=== PATIENT | female | born 1955 | race Caucasian/White ===

== ENCOUNTER 2019-12-21 11:55 | Emergency (ER) | payer MEDICARE, OTHER, SELFPAY ==
--- NOTE | 2019-12-21 12:03 | ED.GENADULT ---
HPI - General Adult General Chief complaint: Urogenital-Female Stated complaint: Possible UTI Time Seen by Provider: 12/21/19 12:23 Source: patient Mode of arrival: ambulatory Limitations: no limitations History of Present Illness HPI narrative: 64-year-old female [facility] of urinary symptoms that started last night. Patient states that last night she noticed that she had increase in urgency and frequency as well as noticed an odor to the urine and today she is starting to have more urgency, frequency, burning with urination. Patient states she is also had some lower abdominal pressure. Denies any fevers, nausea, vomiting or diarrhea. Denies any low back pain. Related Data Allergies Allergy/AdvReac Type Severity Reaction Status Date / Time No Known Drug Allergies Allergy Unknown Unknown Verified 12/21/19 12:06 Review of Systems Review of Systems: Narrative: CONSTITUTIONAL: Denies fever, chills, or sweats. EYES: Denies visual changes, redness, or discharge. ENT: Denies rhinorrhea, congestion, sore throat, or otalgia. CARDIOVASCULAR: Denies chest pain, palpitations, or edema. RESPIRATORY: Denies cough or dyspnea. GASTROINTESTINAL: Positive lower abdominal abdominal pressure, denies nausea, vomiting, or diarrhea. GENITOURINARY: Denies dysuria or hematuria. Positive urgency, frequency and pain with urination since yesterday. SKIN: Denies rash or itching. MUSCULOSKELETAL: Denies back pain, joint pain, or myalgia. NEUROLOGIC: Denies headache, numbness, or weakness. PSYCHIATRIC: Denies anxiety or depression. PMFSH Past Medical History Medical History Ovarian cancer Postmenopausal Uterine polyp Surgical History Surgical History H/O: hysterectomy Comments At the time of my signature I agree with nursing past medical history, surgical, social, and family history. There is no relevant family history pertinent to the presenting complaint. Exam Narrative: Exam Narrative: GENERAL: Well-appearing, well-nourished, and in no acute distress. HEAD: Normocephalic, atraumatic. EYES: PERRLA and EOMI. ENT: Nares clear, no rhinorrhea or epistaxis. Mucous membranes moist. NECK: Supple. No lymphadenopathy CHEST: Clear to auscultation. No respiratory distress. HEART: Regular rate and rhythm. No murmur heard. Normal peripheral pulses. ABDOMEN: Soft, nontender, nondistended, normal active bowel sounds. No CVA tenderness on percussion. EXTREMITIES: Normal range of motion. No edema. SKIN: Warm, dry, no rash. NEURO: No focal deficits. Alert and oriented x3. Course Vital Signs Vital signs: Vital Signs Temperature 37.7 C H 12/21/19 12:10 Pulse Rate 104 H 12/21/19 12:10 Respiratory Rate 18 12/21/19 12:10 Blood Pressure 142/72 H 12/21/19 12:10 Pulse Oximetry 99 12/21/19 12:10 Temperature 37.7 C H 12/21/19 12:10 Pulse Rate 104 H 12/21/19 12:10 Respiratory Rate 18 12/21/19 12:10 Blood Pressure 142/72 H 12/21/19 12:10 Pulse Oximetry 99 12/21/19 12:10 Vital signs reviewed. The patient has been informed that they may have pre-hypertension or Hypertension based on a BP reading in the department. I recommend that the patient call the primary care provider listed on their discharge instructions or a physician of their choice this week to arrange follow up for further evaluation of possible pre-hypertension or Hypertension Medical Decision Making Differential Diagnosis Differential Diagnosis: Differential diagnosis: Uncomplicated lower UTI, uncomplicated UTI, pyelonephritis Discussed with patient it does appear that she is got a UTI based on her symptoms as well as her urine dip therefore we will discharge her home with an antibiotic for the urinary tract infection. Discussed with patient that if her antibiotic needs to be changed or discontinued she will get a phone ca
[2019-12-21 12:10] VITALS: BP 142/72; PULSE 104; RESP 18; TEMP 37.7; O2SAT 99
== END 2019-12-21 12:31 | disposition home or self-care (01) ==
PROVIDERS: Emergency Provider Nurse Practitioner Family
DX: N30.01 Acute cystitis with hematuria (principal)
CPT/HCPCS: 81003; 87077; 87086; 87088; 87186; 99213; G0463

== ENCOUNTER 2021-06-22 16:09 | Emergency (ER) | payer MEDICARE, OTHER, SELFPAY ==
[2021-06-22 16:17] VITALS: BP 147/69; PULSE 102; RESP 20; TEMP 37; O2SAT 98
--- NOTE | 2021-06-22 16:30 | ED.GENADULT ---
HPI - General Adult General Chief complaint: Unspecified Stated complaint: Left Shoulder pain Time Seen by Provider: 06/22/21 16:31 Source: patient and RN notes reviewed Mode of arrival: ambulatory Limitations: no limitations History of Present Illness HPI narrative: 66-year-old female with history of ovarian cancer in 2016 presents with concern for left shoulder pain and soft swelling above the clavicle. She denies injury or trauma. Denies trouble breathing. Denies chest pain. Reports she saw her oncologist when this started, had a CT scan that was normal. She reports pain with range of motion and deep breathing beer. Reports she has taken extra strength Tylenol for pain. MD complaint: Shoulder pain Related Data Home Medications Medication Instructions Recorded Confirmed megestrol 80 mg PO BID 06/22/21 06/22/21 Allergies Allergy/AdvReac Type Severity Reaction Status Date / Time No Known Drug Allergies Allergy Unknown Unknown Verified 06/22/21 16:32 Review of Systems Review of Systems: CONSTITUTIONAL: Denies malaise, chills, sweats, or fever. CARDIOVASCULAR: Denies chest pain, palpitations, or edema. RESPIRATORY: Denies cough or dyspnea. SKIN: Denies open skin, redness, warmth MUSCULOSKELETAL: Reports left anterior shoulder/clavicle pain NEUROLOGIC: Denies numbness, weakness All systems reviewed & are unremarkable except as noted in HPI and below PMFSH Past Medical History Medical History (Updated 06/22/21 @ 16:46 by Janeen Clemens NP) Ovarian cancer Postmenopausal Uterine polyp Surgical History Surgical History H/O: hysterectomy Comments At time of signature, agree with nursing past medical, surgical, social and family history. There is no relevant family history pertinent to the presenting complaint Exam Narrative: GENERAL: Well-appearing, well-nourished, and in no acute distress. HEAD: Normocephalic, atraumatic. EYES: PERRLA, conjunctivae clear NECK: Supple. No lymphadenopathy, carotids easily palpable, no jugular vein distention CHEST: Speaks in full sentences. No respiratory distress. HEART: Regular rate and rhythm. Normal and equal peripheral pulses. EXTREMITIES: Left shoulder, upper arm has normal strength and sensation, normal range of motion. No erythema, induration, or ecchymosis. 8 cm x 3 cm area of well demarcated soft edema noted above the left clavicle. 5/5 strength with left arm flexion and extension. Normal sensation with sensitivity to light touch and pain. No point tenderness. No open wounds, no skin tenting, no devitalized tissue or atrophy, no trophic changes, no obvious deformity, alignment normal, nearby joints and structures intact. Distal pulses palpable and equal bilaterally, skin warm, dry, pink. Capillary refill less than 3 seconds. SKIN: Warm, dry, no rash. NEURO: Alert and oriented x3. PSYCH: Normal mood and affect Course Course Emergency Course: Suni with patient need for follow-up with her primary care provider for further evaluation of the swelling. The meantime will prescribe muscle relaxer and ibuprofen for possible muscle strain. Patient is aware of diagnosis, understands and agrees to treatment plan. Anticipatory guidance given. Patient agrees to follow-up as directed and is aware of reasons to seek care at the emergency department. Portions of this record may have been created with voice recognition software Vital Signs Vital signs: Vital Signs Temperature 98.6 F 06/22/21 16:17 Pulse Rate 102 H 06/22/21 16:17 Respiratory Rate 20 06/22/21 16:17 Blood Pressure 147/69 H 06/22/21 16:17 Pulse Oximetry 98 06/22/21 16:17 Temperature 98.6 F 06/22/21 16:17 Pulse Rate 102 H 06/22/21 16:17 Respiratory Rate 20 06/22/21 16:17 Blood Pressure 147/69 H 06/22/21 16:17 Pulse Oximetry 98 06/22/21 16:17 Reviewed. Medical Decision Making Vital Signs Vital Signs: Vital Signs Temperat
== END 2021-06-22 16:48 | disposition home or self-care (01) ==
PROVIDERS: Emergency Provider Nurse Practitioner
DX: M25.512 Pain in left shoulder (principal); Z85.43 Personal history of malignant neoplasm of ovary
CPT/HCPCS: 99213; G0463

== ENCOUNTER 2021-06-24 20:17 | Emergency (ER) | payer MEDICARE, OTHER, SELFPAY ==
--- NOTE | ~2021-06-24 | XR_ITS ---
EXAMINATION: XR shoulder LT min 2V DATE: 06/24/2021 21:59 INDICATION: Left shoulder pain. TECHNIQUE: 4 views of left shoulder were obtained. COMPARISON: None. FINDINGS: Bone alignment is normal. No fracture. There is mild osteoarthritis of glenohumeral joint. Acromioclavicular joint is normal. IMPRESSION: 1. Mild glenohumeral joint osteoarthritis. Reviewed, dictated and finalized at location A.
[2021-06-24 20:21] VITALS: BP 143/74; PULSE 95; RESP 16; TEMP 36.4; O2SAT 100
[2021-06-24] MEDS: HYDROcodone/acetaminophen (*CRX) 5-325 MG TABLET 1 TAB PO (22:08)
[2021-06-24] MEDS: ONDANSETRON HCL ODT 4 MG TABLET PO (22:08)
--- NOTE | 2021-06-24 22:45 | ED.EXTPRO ---
HPI - Extremity Problem General Chief complaint: Extremity Problem,Nontraumatic Stated complaint: chest pain Time Seen by Provider: 06/24/21 21:35 Source: patient and RN notes reviewed Mode of arrival: ambulatory Limitations: no limitations History of Present Illness HPI Narrative: This is a 66 year old female who presents for evaluation of left shoulder/clavicle pain. She mowed her lawn on Sunday and she woke up with left clavicle pain on Sunday . She has continued to have pain with movement of her arm . She was evaluated at [facility] and she was prescribed ibuprofen and muscle relaxer. She reports those medications help her pain but tonight she developed worsening pain. She states her pain worsened tonight when she leaned over to dry herself and she felt of sharp pain to left clavicle and shoulder. Her thinks he heard a pop like something is broken. She has not taken anything for her pain tonight. She denies arm weakness, numbness, tingling, chest pain, shortness of breath, fever , chills, abdominal pain. She notes that she noticed left supraclavicular swelling 3 weeks ago. Her doctor ordered CT scan and it was normal. Related Data Home Medications Medication Instructions Recorded Confirmed megestrol 80 mg PO BID 06/22/21 06/22/21 Allergies Allergy/AdvReac Type Severity Reaction Status Date / Time No Known Drug Allergies Allergy Unknown Unknown Verified 06/22/21 16:32 Review of Systems Review of Systems: All systems reviewed & are unremarkable except as noted in HPI and below PMFSH Past Medical History Medical History (Updated 06/25/21 @ 00:00 by Josafat Neely) Ovarian cancer Postmenopausal Uterine polyp Surgical History Surgical History H/O: hysterectomy Exam Const: General: no acute distress and alert Orientation/consciousness: patient oriented x3 Other: laying in bed with ice pack on left shoulder Eyes: EOM: EOMs intact bilaterally Neck: Neck: normal visual inspection Resp: Effort & Inspection: normal respiratory effort and no retractions Auscultation: clear to auscultation bilaterally Cardio: Rate: regular rate Rhythm: regular rhythm Heart sounds: no murmurs GI: GI Palp: Yes Soft to palpation, No Tenderness to palpation present (GI) and No Guarding due to palpation present (GI) Auscultation: normal bowel sounds Skin: General skin exam: normal color Rashes: no rashes Neuro: General: patient oriented x3 Extrem: Other: left shoulder, no supraclavicular swelling, there is TTP mid to proximal clavicle. no erythema, Psych: Mental Status: mental status grossly normal Affect: normal affect Course Reevaluation(s) Reevaluation #1: I discussed with patient that xray did not show fracture. I discussed plan to discharge with sling and pain medication. She will speak to doctor on Sunday to discusss further evaluation pain. She does seems to have additional symptoms to suggest it is referred pain. No mass seen. Date: 06/24/21 Time: 23:02 Vital Signs Vital signs: Vital Signs Temperature 97.6 F 06/24/21 20:21 Pulse Rate 95 06/24/21 20:21 Respiratory Rate 16 06/24/21 20:21 Blood Pressure 143/74 H 06/24/21 20:21 Pulse Oximetry 100 06/24/21 20:21 Temperature 97.6 F 06/24/21 20:21 Pulse Rate 70 06/24/21 22:54 Respiratory Rate 18 06/24/21 22:54 Blood Pressure 126/62 06/24/21 22:54 Pulse Oximetry 100 06/24/21 22:54 MDM - Extremity (Nontraumatic) Imaging Data Radiologist's impression: ITS Impressions Shoulder X-Ray 06/24/21 22:01 IMPRESSION: 1. Mild glenohumeral joint osteoarthritis. Discharge Plan Discharge Clinical Impression: Pain of left clavicle Patient Disposition: Home, Self-Care Condition: Stable Instructions: Antibiotic Form, How to Use a Sling (ED), Shoulder Pain (ED) Additional Instructions: Continue to ta
[2021-06-24 22:54] VITALS: BP 126/62; PULSE 70; RESP 18; O2SAT 100
--- NOTE | 2021-06-24 23:16 | PC.NURSE ---
TECH AT BEDSIDE, PT PLACED IN A SLING.
== END 2021-06-24 23:21 | disposition home or self-care (01) ==
PROVIDERS: Emergency Provider General Practice
DX: M25.512 Pain in left shoulder (principal); M19.012 Primary osteoarthritis, left shoulder
CPT/HCPCS: 73030; 99283; A4565; A9270

== ENCOUNTER 2022-07-13 13:38 | Emergency (ER) | payer MEDICARE, OTHER, SELFPAY ==
[2022-07-13 13:46] VITALS: BP 170/70; PULSE 96; RESP 16; TEMP 36.9; O2SAT 99
--- NOTE | 2022-07-13 14:00 | ED.EXTPRO ---
HPI - Extremity Problem General Chief complaint: Extremity Problem,Nontraumatic Stated complaint: Left Foot pain Time Seen by Provider: 07/13/22 14:01 Source: patient and RN notes reviewed Mode of arrival: ambulatory Limitations: no limitations History of Present Illness HPI Narrative: 67-year-old female presents with concern for left foot pain and swelling without injury. She reports over the last 3 days she has had redness, swelling, tenderness to the foot. She reports pain is consistent, swelling is slightly less in the morning that it is later in the day. She reports tenderness to touch, pain is worse with weightbearing. She denies any open skin. She denies history of gout. She denies fever, body aches, chills, sweats MD Complaint: extremity pain Related Data Home Medications Medication Instructions Recorded Confirmed everolimus (antineoplastic) 10 mg 10 mg PO DAILY 07/13/22 07/13/22 tablet (Afinitor) letrozole 2.5 mg tablet 2.5 mg PO DAILY 07/13/22 07/13/22 metformin 500 mg tablet 500 mg PO DAILY 07/13/22 07/13/22 Allergies Allergy/AdvReac Type Severity Reaction Status Date / Time No Known Drug Allergies Allergy Unknown Unknown Verified 07/13/22 14:01 Review of Systems Review of Systems: CONSTITUTIONAL: Denies malaise, chills, sweats, or fever. SKIN: Denies rash or itching, open skin, laceration, abrasion MUSCULOSKELETAL: Reports left foot pain, swelling, warmth, redness NEUROLOGIC: Denies numbness, weakness All systems reviewed & are unremarkable except as noted in HPI and below PMFSH Past Medical History Medical History (Updated 07/13/22 @ 14:10 by Janeen Clemens NP) Ovarian cancer Postmenopausal Uterine polyp Surgical History Surgical History H/O: hysterectomy Comments At time of signature, agree with nursing past medical, surgical, social and family history. There is no relevant family history pertinent to the presenting complaint Exam Narrative: GENERAL: Well-appearing, well-nourished, and in no acute distress. HEAD: Normocephalic, atraumatic. EYES: PERRLA, conjunctivae clear NECK: Supple. CHEST: Speaks in full sentences. No respiratory distress. HEART: Regular rate and rhythm. Normal and equal peripheral pulses. EXTREMITIES: Left foot, digits have grossly normal strength and sensation, grossly normal range of motion. Dorsal nonpitting tenderness, edema, warmth, erythema noted to the left foot without ecchymosis. Normal sensation with sensitivity to light touch and pain. No open wounds, no skin tenting, no devitalized tissue or atrophy, no trophic changes, no obvious deformity, alignment normal, nearby joints and structures intact. Distal pulses palpable and equal bilaterally, skin warm, dry, pink. Capillary refill less than 3 seconds. No calf redness, swelling, tenderness, each calf measures 14 inches in diameter SKIN: Warm, dry, no rash. NEURO: Alert and oriented x3. PSYCH: Normal mood and affect Course Course Emergency Course: Advised patient that if her symptoms or not improving with 48 hours on antibiotics to return for reevaluation and possible treatment for potential gout. Patient can see her primary care provider for 3 weeks. Patient is aware of diagnosis, understands and agrees to treatment plan. Anticipatory guidance given. Patient agrees to follow-up as directed and is aware of reasons to seek care at the emergency department. Portions of this record may have been created with voice recognition software Level of Care: Express Care Visit Vital Signs Vital signs: Vital Signs Temperature 98.4 F 07/13/22 13:46 Pulse Rate 96 07/13/22 13:46 Respiratory Rate 16 07/13/22 13:46 Blood Pressure 170/70 H 07/13/22 13:46 Pulse Oximetry 99 07/13/22 13:46 Oxygen Delivery Room Air 07/13/22 13:46 Temperature 98.4 F 07/13/22 13:46 Pulse Rate 96 07/13/22 13:46 Respiratory Rate 16 07/13/22 13:46 Blood Pre
== END 2022-07-13 14:15 | disposition home or self-care (01) ==
PROVIDERS: Emergency Provider Nurse Practitioner
DX: L03.116 Cellulitis of left lower limb (principal); Z85.43 Personal history of malignant neoplasm of ovary
CPT/HCPCS: 99213; G0463

== ENCOUNTER 2024-08-06 13:19 | Outpatient (CLI) | payer MEDICARE, OTHER, SELFPAY ==
[2024-08-06 13:53] LABS: Basophils Percent Auto 0.7 % (0.2-1.2); Eosinophils Absolute Auto 0.1 K/mm3 (0-0.3); Eosinophils Percent Auto 2.1 % (0-4.4); Hematocrit 25.6 % (37.0-47.0); Hemoglobin 7.6 g/dL (12.0-15.0); Immature Granulocyte Absolute 0.02 K/mm3 (0.00-0.031); Immature Granulocyte Percent A 0.4 % (0-0.5); Lymphocytes Absolute Auto 0.68 K/mm3 (0.9-3.2); Mean Corpuscular HGB Conc 29.7 g/dl (32-36); Mean Corpuscular Hemoglobin 24.8 pg (26-34); Mean Corpuscular Volume 83.7 fl (80-100); Mean Platelet Volume 8.4 fl (7.4-10.4); Monocytes Absolute Auto 0.3 K/mm3 (0.1-0.6); Monocytes Percent Auto 5.6 % (2.6-8.5); Neutrophils Absolute Auto 4.5 K/mm3 (1.3-6.7); Neutrophils Percent Auto 79.2 % (45.5-73.1); Platelet Count Result 355 k/mm3 (150-375); Red Blood Count 3.06 M/mm3 (4.2-5.4); Red Cell Distribution Width 15.9 % (11.5-14.5); White Blood Count 5.7 K/mm3 (4.5-10.0)
[2024-08-06 14:04] LABS: Anisocytosis 2+; Microcytosis 2+ (NORMAL); Platelet Estimate Adequate (Adequate); Schistocytes None Seen
[2024-08-06 16:50] LABS: Alanine Aminotransferase 18 U/L (6-35); Alkaline Phosphatase 106 U/L (38-126); Anion Gap 10 mmol/L (4-12); Aspartate Amino Transferase 29 U/L (14-36); Bilirubin,Total < 0.1 mg/dL (0.2-1.3); Blood Urea Nitrogen 19 mg/dL (7-17); Calcium 9.2 mg/dL (8.4-10.2); Carbon Dioxide 27 mmol/L (22-30); Chloride 105 mmol/L (98-107); Estimated Glomerular Filt Rate > 60; Glucose 89 mg/dL (65-110); Magnesium 1.7 mg/dL (1.6-2.3); Potassium 3.7 mmol/L (3.4-5.0); Sodium 142 mmol/L (137-145)
[2024-08-06 18:41] LABS: T4 Thyroxine 8.62 ug/dL (5.53-11.0)
[2024-08-06 19:15] LABS: Cortisol Random 9.81 ug/dL
[2024-08-08 12:19] LABS: CA-125 125 U/mL (<35)
== END 2024-08-06 13:20 | disposition home or self-care (01) ==
LOC: ANHLAB 13:25
PROVIDERS: Obstetrics & Gynecology Gynecology; Visit Provider Internal Medicine Hematology & Oncology
DX: C54.1 Malignant neoplasm of endometrium (principal)
CPT/HCPCS: 36415; 80053; 82533; 83735; 84436; 84443; 85025; 86304

== ENCOUNTER 2024-08-28 14:55 | Outpatient (CLI) | payer MEDICARE, OTHER, SELFPAY ==
[2024-08-28 15:18] LABS: Hematocrit 27.6 % (37.0-47.0); Hemoglobin 7.9 g/dL (12.0-15.0); Mean Corpuscular HGB Conc 28.6 g/dl (32-36); Mean Corpuscular Hemoglobin 22.9 pg (26-34); Mean Platelet Volume 7.8 fl (7.4-10.4); Platelet Count Result 752 k/mm3 (150-375); Red Blood Count 3.45 M/mm3 (4.2-5.4); White Blood Count 14.6 K/mm3 (4.5-10.0)
[2024-08-28 15:28] LABS: Band Neutrophils Percent 3 % (0-6); Eosinophils Absolute Manual 0.14 K/mm3 (0.02-0.50); Eosinophils Percent Manual 1 % (0-4); Hypochromasia 2+; Lymphocytes Absolute Manual 1.02 K/mm3 (1.1-4.5); Metamyelocytes Percent 2 %; Monocytes Absolute Manual 0.87 K/mm3 (0.1-0.90); Monocytes Percent Manual 6 % (3-9); Neutrophils Absolute Manual 12.26 K/mm3 (1.7-7.2); Neutrophils Percent Manual 81 % (46-73); Platelet Estimate Increased (Adequate); Schistocytes None Seen; Total Cells Counted 100
[2024-08-28 15:29] LABS: Anisocytosis 2+; Microcytosis 2+ (NORMAL)
[2024-08-28 16:33] LABS: Alanine Aminotransferase 12 U/L (6-35); Albumin Level 4.2 g/dL (3.5-5.1); Alkaline Phosphatase 115 U/L (38-126); Anion Gap 12 mmol/L (4-12); Aspartate Amino Transferase 24 U/L (14-36); Bilirubin,Total 0.3 mg/dL (0.2-1.3); Blood Urea Nitrogen 23 mg/dL (7-17); Carbon Dioxide 28 mmol/L (22-30); Chloride 96 mmol/L (98-107); Estimated Glomerular Filt Rate > 60; Glucose 123 mg/dL (65-110); Magnesium 1.9 mg/dL (1.6-2.3); Potassium 4.4 mmol/L (3.4-5.0); Sodium 136 mmol/L (137-145)
[2024-08-28 16:49] LABS: T4 Thyroxine 9.76 ug/dL (5.53-11.0)
[2024-08-30 02:49] LABS: CA-125 416 U/mL (<35)
== END 2024-08-28 14:56 | disposition home or self-care (01) ==
LOC: ANHLAB 14:57
PROVIDERS: Obstetrics & Gynecology Gynecology; Visit Provider Internal Medicine Hematology & Oncology
DX: C54.1 Malignant neoplasm of endometrium (principal)
CPT/HCPCS: 36415; 80053; 82533; 83735; 84436; 84443; 85025; 86304

== ENCOUNTER 2024-10-01 10:46 | Outpatient (CLI) | payer MEDICARE, OTHER, SELFPAY ==
[2024-10-01 11:21] LABS: Basophils Percent Auto 0.3 % (0.2-1.2); Eosinophils Absolute Auto 0.1 K/mm3 (0-0.3); Eosinophils Percent Auto 0.5 % (0-4.4); Hematocrit 30.5 % (37.0-47.0); Hemoglobin 8.4 g/dL (12.0-15.0); Immature Granulocyte Absolute 0.08 K/mm3 (0.00-0.031); Immature Granulocyte Percent A 0.6 % (0-0.5); Lymphocytes Absolute Auto 0.86 K/mm3 (0.9-3.2); Mean Corpuscular HGB Conc 27.5 g/dl (32-36); Mean Corpuscular Hemoglobin 21.1 pg (26-34); Mean Corpuscular Volume 76.4 fl (80-100); Mean Platelet Volume 8.3 fl (7.4-10.4); Monocytes Absolute Auto 0.7 K/mm3 (0.1-0.6); Monocytes Percent Auto 4.9 % (2.6-8.5); Neutrophils Absolute Auto 12.5 K/mm3 (1.3-6.7); Neutrophils Percent Auto 87.7 % (45.5-73.1); Platelet Count Result 702 k/mm3 (150-375); Red Blood Count 3.99 M/mm3 (4.2-5.4); Red Cell Distribution Width 17.4 % (11.5-14.5); White Blood Count 14.2 K/mm3 (4.5-10.0)
[2024-10-01 11:34] LABS: Hypochromasia 2+; Platelet Estimate Increased (Adequate); Schistocytes None Seen
[2024-10-01 12:16] LABS: Alanine Aminotransferase 12 U/L (6-35); Alkaline Phosphatase 104 U/L (38-126); Anion Gap 9 mmol/L (4-12); Aspartate Amino Transferase 26 U/L (14-36); Bilirubin,Total 0.3 mg/dL (0.2-1.3); Blood Urea Nitrogen 17 mg/dL (7-17); Calcium 9.9 mg/dL (8.4-10.2); Carbon Dioxide 30 mmol/L (22-30); Chloride 100 mmol/L (98-107); Estimated Glomerular Filt Rate > 60; Glucose 157 mg/dL (65-110); Magnesium 1.9 mg/dL (1.6-2.3); Potassium 3.7 mmol/L (3.4-5.0); Sodium 139 mmol/L (137-145)
[2024-10-03 08:04] LABS: CA-125 970 U/mL (<35)
== END 2024-10-01 10:47 | disposition home or self-care (01) ==
LOC: ANHLAB 10:51
PROVIDERS: Obstetrics & Gynecology Gynecology; Visit Provider Internal Medicine Hematology & Oncology
DX: C54.1 Malignant neoplasm of endometrium (principal)
CPT/HCPCS: 36415; 80053; 82533; 83735; 84443; 85025; 86304

== ENCOUNTER 2024-10-23 10:55 | Outpatient (CLI) | payer MEDICARE, OTHER, SELFPAY ==
[2024-10-23 14:00] LABS: Alanine Aminotransferase 9 U/L (6-35); Albumin Level 3.9 g/dL (3.5-5.1); Alkaline Phosphatase 92 U/L (38-126); Anion Gap 7 mmol/L (4-12); Aspartate Amino Transferase 24 U/L (14-36); Bilirubin,Total 0.4 mg/dL (0.2-1.3); Blood Urea Nitrogen 19 mg/dL (7-17); Calcium 10.1 mg/dL (8.4-10.2); Carbon Dioxide 29 mmol/L (22-30); Chloride 100 mmol/L (98-107); Estimated Glomerular Filt Rate > 60; Glucose 111 mg/dL (65-110); Magnesium 1.9 mg/dL (1.6-2.3); Potassium 4.3 mmol/L (3.4-5.0); Sodium 136 mmol/L (137-145)
[2024-10-24 09:38] LABS: Free T4 Free Thyroxine Reflex 1.79 ng/dL (0.78-2.19)
[2024-10-24 12:08] LABS: Total Triiodothyronine (T3) 1.57 NG/ML (0.97-1.69)
[2024-10-25 08:54] LABS: CA-125 1047 U/mL (<35)
== END 2024-10-23 10:56 | disposition home or self-care (01) ==
PROVIDERS: Visit Provider Obstetrics & Gynecology Gynecology
DX: C54.1 Malignant neoplasm of endometrium (principal)
CPT/HCPCS: 36415; 80053; 82533; 83735; 84439; 84443; 84480; 86304

== ENCOUNTER 2024-10-24 10:38 | Outpatient (CLI) | payer MEDICARE, OTHER, SELFPAY ==
[2024-10-24 11:09] LABS: Basophils Absolute Auto 0.1 K/mm3 (0.0-0.1); Basophils Percent Auto 0.5 % (0.2-1.2); Eosinophils Absolute Auto 0.3 K/mm3 (0-0.3); Hematocrit 29.2 % (37.0-47.0); Hemoglobin 8.2 g/dL (12.0-15.0); Immature Granulocyte Absolute 0.08 K/mm3 (0.00-0.031); Immature Granulocyte Percent A 0.6 % (0-0.5); Lymphocytes Absolute Auto 0.77 K/mm3 (0.9-3.2); Mean Corpuscular HGB Conc 28.1 g/dl (32-36); Mean Corpuscular Hemoglobin 20.7 pg (26-34); Mean Corpuscular Volume 73.6 fl (80-100); Mean Platelet Volume 8.2 fl (7.4-10.4); Monocytes Absolute Auto 0.9 K/mm3 (0.1-0.6); Monocytes Percent Auto 6.8 % (2.6-8.5); Neutrophils Absolute Auto 10.8 K/mm3 (1.3-6.7); Neutrophils Percent Auto 84.1 % (45.5-73.1); Platelet Count Result 682 k/mm3 (150-375); Red Blood Count 3.97 M/mm3 (4.2-5.4); Red Cell Distribution Width 17.9 % (11.5-14.5); White Blood Count 12.8 K/mm3 (4.5-10.0)
[2024-10-24 11:18] LABS: Platelet Estimate Increased (Adequate); Schistocytes None Seen
[2024-10-24 11:19] LABS: Hypochromasia 1+; Ovalocytes 1+; Poikilocytosis 1+
== END 2024-10-24 10:39 | disposition home or self-care (01) ==
LOC: ANHLAB 10:39
PROVIDERS: Visit Provider Obstetrics & Gynecology Gynecology
DX: C54.1 Malignant neoplasm of endometrium (principal)
CPT/HCPCS: 36415; 85025

== ENCOUNTER 2024-11-13 11:35 | Outpatient (CLI) | payer MEDICARE, OTHER, SELFPAY ==
[2024-11-13 11:59] LABS: Basophils Absolute Auto 0.1 K/mm3 (0.0-0.1); Basophils Percent Auto 0.5 % (0.2-1.2); Eosinophils Absolute Auto 0.2 K/mm3 (0-0.3); Eosinophils Percent Auto 1.8 % (0-4.4); Hematocrit 27.6 % (37.0-47.0); Hemoglobin 7.6 g/dL (12.0-15.0); Immature Granulocyte Absolute 0.14 K/mm3 (0.00-0.031); Immature Granulocyte Percent A 1.1 % (0-0.5); Lymphocytes Absolute Auto 0.73 K/mm3 (0.9-3.2); Lymphocytes Percent Auto 5.7 % (18.3-44.2); Mean Corpuscular HGB Conc 27.5 g/dl (32-36); Mean Corpuscular Hemoglobin 19.9 pg (26-34); Mean Corpuscular Volume 72.4 fl (80-100); Mean Platelet Volume 7.6 fl (7.4-10.4); Monocytes Percent Auto 7.6 % (2.6-8.5); Neutrophils Absolute Auto 10.6 K/mm3 (1.3-6.7); Neutrophils Percent Auto 83.3 % (45.5-73.1); Platelet Count Result 532 k/mm3 (150-375); Red Blood Count 3.81 M/mm3 (4.2-5.4); Red Cell Distribution Width 18.4 % (11.5-14.5); White Blood Count 12.8 K/mm3 (4.5-10.0)
[2024-11-13 12:09] LABS: Platelet Estimate Increased (Adequate); Schistocytes None Seen
[2024-11-13 12:10] LABS: Hypochromasia 1+; Ovalocytes 1+; Poikilocytosis 1+
[2024-11-13 14:35] LABS: Alanine Aminotransferase 10 U/L (6-35); Albumin Level 3.6 g/dL (3.5-5.1); Alkaline Phosphatase 100 U/L (38-126); Anion Gap 4 mmol/L (4-12); Aspartate Amino Transferase 21 U/L (14-36); Bilirubin,Total 0.4 mg/dL (0.2-1.3); Blood Urea Nitrogen 16 mg/dL (7-17); Calcium 9.9 mg/dL (8.4-10.2); Carbon Dioxide 31 mmol/L (22-30); Chloride 98 mmol/L (98-107); Estimated Glomerular Filt Rate > 60; Glucose 114 mg/dL (65-110); Magnesium 1.8 mg/dL (1.6-2.3); Potassium 3.8 mmol/L (3.4-5.0); Sodium 133 mmol/L (137-145)
[2024-11-13 16:13] LABS: Free T4 Free Thyroxine Reflex 1.67 ng/dL (0.78-2.19)
[2024-11-13 17:17] LABS: Total Triiodothyronine (T3) 1.45 NG/ML (0.97-1.69)
[2024-11-14 07:38] LABS: CA-125 1206 U/mL (<35)
== END 2024-11-13 11:36 | disposition home or self-care (01) ==
LOC: ANHLAB 11:37
PROVIDERS: Visit Provider Internal Medicine
DX: Z01.818 Encounter for other preprocedural examination (principal); C54.1 Malignant neoplasm of endometrium
CPT/HCPCS: 36415; 80053; 82533; 83735; 84439; 84443; 84480; 85025; 86304

== ENCOUNTER 2024-12-04 11:23 | Outpatient (CLI) | payer MEDICARE, OTHER, SELFPAY ==
[2024-12-04 11:45] LABS: Basophils Absolute Auto 0.1 K/mm3 (0.0-0.1); Basophils Percent Auto 0.4 % (0.2-1.2); Eosinophils Absolute Auto 0.2 K/mm3 (0-0.3); Eosinophils Percent Auto 0.9 % (0-4.4); Hematocrit 28.2 % (37.0-47.0); Hemoglobin 7.7 g/dL (12.0-15.0); Immature Granulocyte Absolute 0.17 K/mm3 (0.00-0.031); Lymphocytes Absolute Auto 0.72 K/mm3 (0.9-3.2); Lymphocytes Percent Auto 4.4 % (18.3-44.2); Mean Corpuscular HGB Conc 27.3 g/dl (32-36); Mean Corpuscular Hemoglobin 19.5 pg (26-34); Mean Corpuscular Volume 71.6 fl (80-100); Mean Platelet Volume 8.2 fl (7.4-10.4); Monocytes Absolute Auto 0.9 K/mm3 (0.1-0.6); Monocytes Percent Auto 5.3 % (2.6-8.5); Neutrophils Absolute Auto 14.3 K/mm3 (1.3-6.7); Platelet Count Result 672 k/mm3 (150-375); Red Blood Count 3.94 M/mm3 (4.2-5.4); Red Cell Distribution Width 18.9 % (11.5-14.5); White Blood Count 16.3 K/mm3 (4.5-10.0)
[2024-12-04 11:48] LABS: Hypochromasia 1+; Platelet Estimate Increased (Adequate); Schistocytes None Seen; Stomatocytes 1+
[2024-12-04 11:49] LABS: Anisocytosis 1+; Microcytosis 1+ (NORMAL); Ovalocytes 1+; Poikilocytosis 2+
[2024-12-04 12:30] LABS: Alanine Aminotransferase 8 U/L (6-35); Albumin Level 3.6 g/dL (3.5-5.1); Alkaline Phosphatase 106 U/L (38-126); Anion Gap 9 mmol/L (4-12); Aspartate Amino Transferase 18 U/L (14-36); Bilirubin,Total 0.5 mg/dL (0.2-1.3); Blood Urea Nitrogen 14 mg/dL (7-17); Calcium 10.1 mg/dL (8.4-10.2); Carbon Dioxide 28 mmol/L (22-30); Chloride 97 mmol/L (98-107); Estimated Glomerular Filt Rate > 60; Glucose 123 mg/dL (65-110); Magnesium 1.8 mg/dL (1.6-2.3); Sodium 134 mmol/L (137-145)
[2024-12-04 21:58] LABS: Free T4 Free Thyroxine Reflex 1.72 ng/dL (0.78-2.19)
[2024-12-04 22:43] LABS: Total Triiodothyronine (T3) 1.69 NG/ML (0.97-1.69)
[2024-12-06 03:39] LABS: CA-125 1440 U/mL (<35)
== END 2024-12-04 11:24 | disposition home or self-care (01) ==
LOC: ANHLAB 11:25
PROVIDERS: Visit Provider Obstetrics & Gynecology Gynecology
DX: C54.1 Malignant neoplasm of endometrium (principal)
CPT/HCPCS: 36415; 80053; 82533; 83735; 84439; 84443; 84480; 85025; 86304

== ENCOUNTER 2024-12-25 14:07 | Outpatient (CLI) | payer MEDICARE, OTHER, SELFPAY ==
--- OUTSIDE RECORDS SUMMARY | 2024-12-25 14:12 | XMS_ITS ---
Author Organization [facility] Address [address] 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 Past Plans ONCOLOGY TREATMENT Plan Name Start Date Discontinue Date Treatment Medications Discontinue Reason Plan Provider Cycles Recurrent Endometrial cancer(PACLITA XEL CARBOPLATIN) Q21 DAYS 02/19/2020 09/14/2023 CARBOplatin (Paraplatin) Infusion (AUC Dosing)PACLita xel (Taxol) in 500 mL infusion Therapy Complete Shane Bull MD 6 of 6 cycles started ENDOMETRIAL (PAC CARB) Q21 DAYS 7 2020 CARBOplatin (Paraplatin) Infusion (AUC Dosing)PACLita xel (Taxol) in 500 mL infusion Change in Level of Care Shane Bull MD 6 of 6 cycles started THERAPY PLAN Plan Name Start Date Discontinue Date Treatment Medications Discontinue Reason Plan Provider PORT MAINTENANCE THERAPY PLAN 01/31/2022 07/24/2023 No medications scheduled. Therapy Shane Perea MD PORT MAINTENANCE THERAPY PLAN 11/25/2020 01/30/2022 No medications scheduled. Therapy Shane Perea MD PORT MAINTENANCE THERAPY PLAN 12/10/2019 11/24/2020 No medications scheduled. Therapy Shane Perea MD PORT MAINTENANCE THERAPY PLAN 07/12/2018 07/24/2019 No medications scheduled. Therapy Shane Perea MD PORT MAINTENANCE THERAPY PLAN 06/21/2017 07/12/2018 No medications scheduled. Therapy Complete Shane Bull MD Radiation Treatments * No radiation treatments are documented for this patient in [facility]. Treatments may have been administered in another system. Lifetime Dose Tracking * Chemical Lifetime Dose Automatic Entry Manual Entr y Dose Length Product 3,397.33 mGy-cm 3,397.33 mGy-cm 0 mGy-cm
--- OUTSIDE RECORDS SUMMARY | 2024-12-25 14:12 | XMS_ITS | Encounter Summary ---
Author Organization [facility] Address [address] [place] [place] [address] Care Team Providers Care Bracelet Former Name Role Phone Jose Chandler APRN-ADVANCED SEAL DELIVERY SYSTEM Primary Care Provide r Reason for Visit * Reason Onset Date Comments MEDICATION REFILL 11/06/2024 Encounter Details Date Type Department Care Team (Late st Contact Info) Description 11/06/2024 Refill [facility] [address] [place] [address] Shane Bull MD [address] [place], [place] [id number] MEDICATION REFILL Social History Tobacco Use Types Packs/Day Years Used Date Smoking Tobacco: Former Cigarettes 0.1 30 1 01/07/1986 - 11/06/2016 Smokeless Tobacco: Former Alcohol Use Standard Drinks/Week Comments No 0 (1 standard drink = 0.6 oz pur e alcohol) AUDIT-C Answer Date Recorded Q1: How often do you have a drink containing alcohol? Never 09/18/2024 Q2: How many drinks containi ng alcohol do you have on a typical day when you are drinking? Patient does not drink Q3: How often do you have si x or more drinks on one occasion? Never 09/18/2024 Overall Financial Resource Strain (CARDIA) Answe r Date Recorded How hard is it for you to pa y for the very basics like food, housing, medical care, and heating? Not hard at all 10/08/2023 PHQ-2 Answer Date Recorded Patient Health Questionnaire-2 Score 1 08/05/2024 [facility] - Occupational Stress Questionnaire Answer Date Recorded Do you feel stress - tense, restless, nervous, or anxious, or unable to sleep at night because your mind is troubled all the time - these days? Not at all 10/08/2023 Hunger Vital Sign Answer Date Recorded Within the past 12 months, y ou worried that your food would run out before you got the money to buy more. Never true 10/08/20 23 Within the past 12 months, t he food you bought just didn't last and you didn't have money to get more. Never true 10/08/2023 PRAPARE - Transportation Answer Date Re corded In the past 12 months, has l ack of transportation kept you from medical appointments or from getting medications? No 09/20 In the past 12 months, has l ack of transportation kept you from meetings, work, or from getting things needed for daily living? Yes 10/08/2023 Housing Stability Vital Sign Answer Jacinto e Recorded In the last 12 months, was t here a time when you were not able to pay the mortgage or rent on time? No 10/08/2023 In the last 12 months, how many places have you lived? 1 10/08/2023 In the last 12 months, was t here a time when you did not have a steady place to sleep or slept in a penitentiary (including now)? No 10/08/2023 Sex and Gender Information Value Date Recorded Sex Assigned at Female 09/03/2023 4:02 PM CDT Gender Identity Female 09/03/2023 4:02 PM CDT Sexual Orientation Not on file documented as of this encounter Functional Status Functional Status Response Date of Assess ment Is person deaf or have serious hearing difficult y? No 09/18/2024 Is person blind or have serious difficulty seein g? No 09/18/2024 Does person have serious dif ficulty walking/climbing stairs? Yes 09/18/2024 Does person have difficulty dressing/bathing? No 09/18/2024 Does person have difficulty doing errands alone? Yes 09/18/2024 Cognitive Status Response Date of Assessm ent Does person have difficulty concentrating/remembering/making decisions? No 09/18/2024 documented as of this encounter Plan of Treatment Upcoming Encounters Date Type Department Care Team (Late st Contact Info) Description 12/29/2024 11:30 AM PRODUCTION CONTROL TECHNOLOGIST Office Visit [facility] [address] [place] [phone] Shane Bull MD [address] [place] [address] 01/19/2025 11:00 AM PRODUCTION CONTROL TECHNOLOGIST Office Visit [facility] [address] [place] [address] Shane Bull MD [address] [place] [address] documented as of this encounter Goals Goal Patient Goal Type Associated Problems Recent Progress Patient-Stated? Author Medication Management General On track( 024 9:50 AM CDT) Layo Greenfield, RN Note: Expected end date: Interventions: Take all medications as prescribed Let your doctor know right away about any changes in your medications Make sure to request a refill of your medication at least one week prior to your last dose documented as of this encounter Visit Diagnoses Diagnosis Adenocarcinoma of endometrium (HCC) Malignant neoplasm of corpus uteri, except isthmus documented in this encounter Care Teams Bracelet Former Relationship Specialty Start Date End Date Jose Chandler, ROLL UP GUIDER OPERATOR-[employer]ANCED SEAL DELIVERY SYSTEM [address] [place] [phone] PCP - General Internal Medicine 10/31/23 documented as of this encounter
--- OUTSIDE RECORDS SUMMARY | 2024-12-25 14:12 | XMS_ITS | Clinical Summary ---
Author Organization [facility] Address [address] [place] [address] Care Team Providers Care Knitting Machine Operator Helper Name Role Phone Jose Chandler APRN-HOSPICE CARE CONSULTANT Primary Care Provide r Source Comments [facility],non-owned Affiliates and Associated Physician Practices is amultiple site organization consisting of ambulatory clinics and hospital sitesin [place], [place], [place]. This disclosure is being madepursuant to the Care Everywhere program and may not contain all information available regarding this patient. Last updated 18.[facility] Allergies No known active allergies Medications * Be aware that medications may not be up to date on this document. Alwaysverify current medications with the patient. Medication Sig Dispensed Refills Start Date End Date Status atorvastatin (Lipitor) 20 MG tablet Take 1 (one) tablet by mouth at bedtime Active Acetaminophen (TYLENOL PO) Take 500 mg by mouth as needed Active ferrous sulfate 325 (65 FE) MG tablet Take 1 (one) tablet by mouth daily with breakfast 10/14/2023 Active ibuprofen (Motrin) 400 MG tablet Take 1.5 (one and one-half) tablets by mouth every 6 hours as needed for Pain Takes every 18 hours Active vitamin D3 (Cholecalciferol ) 25 MCG (1000 UNITS) tablet Take 1 (one) tablet by mouth once daily Active Calcium Carbonate-Vit D-Min (SM Calcium/Vitamin D3) 600-800 MG-UNIT TABS Active multivitamin daily tablet Take 1 (one) tablet by mouth daily with food Active letrozole (Femara) 2.5 MG tablet TAKE 1 TABLET BY MOUTH EVERY DAY 30 tablet 3 06/09/2024 Active Additional Information Patient not taking.Reported on 10/06/2024 lenvatinib (Lenvima, 10 MG Daily Dose,) 10 MG capsuleIndicatio ns:Endometrial Carcinoma Take 1 (one) capsule by mouth once daily Reasons: Endometrial Carcinoma 30 capsule 6 07/22/2024 Active Additional Information Patient not taking.Reported on 10/27/2024 metFORMIN (Glucophage) 500 MG tablet TAKE 1 TABLET BY MOUTH TWICE DAILY WITH THE MORNING AND EVENING MEAL 60 tablet 3 07/23/2024 Active Additional Information Patient not taking.Reported on 10/06/2024 Pembrolizumab (KEYTRUDA IV) by Intravenous route Every 3 Weeks Active amoxicillin-clav ulanate (Augmentin) 875-125 MG tablet Take 1 (one) tablet by mouth 2 times daily with morning and evening meal 20 tablet 09/01/2024 Active Additional Information Patient not taking.Reason: Other (finished), Reported on 09/18/2024 gabapentin (Neurontin) 300 MG capsuleIndicatio ns:Neuropathic Pain Take 1 (one) capsule by mouth 2 times daily Reasons: Neuropathic Pain 60 capsule 4 09/01/2024 Active oxyCODONE, immediate release, (Roxicodone) 10 MG tabletIndication s:Acute Pain,cancer pain Take 1 (one) tablet by mouth every 6 hours as needed for Pain Reasons: Acute Pain, cancer pain 60 tablet 10/27/2024 Active traMADol (Ultram) 50 MG tablet Take 1 (one) tablet by mouth every 6 hours as needed for Pain 60 tablet 11/07/2024 Active fentaNYL (Duragesic) 25 MCG/HR patch 1 patch(es), TransDermal, q3days, 10 patch(es), Patch, 0, 0, [id number], [id number] 41, 160, cm, 04/08/24 10:43:00 CDT, Height, 60.3, kg, 04/08/24 10:43:00 CDT, Weight 11/18/2024 Active Narcan 4 MG/0.1ML nasal spray 1 spray(s), Nasal, as directed, PRN, 1 each, [place], 0, 0, as ordered For suspected opiod overdose, spray the contents of one device in either nostril. May repeat after 3 minutes if no or minimal response, Route to Pharmacy Electronically, [facility] #[id number], [id number] 41, 160, cm, 04/08/24 10:43:00 CDT, Height, 60.3, kg, 04/08/24 10:43:00 CDT, Weight 11/10/2024 Active oxyCODONE, immediate release, (Roxicodone) 5 MG tabletIndication s:Acute Pain Take 1 (one) tablet by mouth every 6 hours as needed for Pain Reasons: Acute Pain 90 tablet 09/19/2024 Discontinue d(List Clean-Up) Active Problems Problem Noted Date Diagnosed Date Fallopian insufflation following sterilization r eversal 12/24/2024 Status post cryoablation 03/03/2024 Closed displaced intertrocha nteric fracture of right femur, initial encounter 10/08/2023 Right hip pain 10/08/2023 Post-operative wound abscess 04/26/2023 Wound dehiscence 02/09/2023 Recurrent carcinoma of endometrium 05/12/2020 Vision changes 12/21/2017 Adenocarcinoma of endometrium 12/14/2016 Ovarian tumor 11/06/2016 Mass of inguinal region Encounters Date Type Department Care Team Description 12/24/2024 Telephone [facility] - RECRUITING MANAGER [address] [place] [address] Shane Bull MD Question 12/23/2024 Orders Only [facility] - RECRUITING MANAGER [address] [place] [address] Ekta Kyle RN 12/23/2024 Telephone [facility] - RECRUITING MANAGER [address], [address] [place] [address] Shane Bull MD Med Question; Returned Call 12/17/2024 8:30 AM MANAGEMENT LEAD Video Visit [facility] - RECRUITING MANAGER [address] [place] [address] Shane Bull MD Adenocarcinoma of endometrium (CMS/HCC) 12/17/2024 Telephone [facility] - RECRUITING MANAGER [address] [place] [address] Shane Bull MD Follow-up 12/17/2024 Travel 12/15/2024 10:24 AM MANAGEMENT LEAD - 12/15/2024 11:59 PM MANAGEMENT LEAD Hospital Encounter [facility] - PET Scan [address] [place] [address] Shane Bull MD CASKET INSPECTOR Oncology Discharge Disposition: Home or Self Care 12/15/2024 Travel 12/08/2024 9:30 AM MANAGEMENT LEAD Office Visit [facility] - RECRUITING MANAGER [address] [place] [phone] Shane Bull MD Malignant neoplasm of ovary, unspecified laterality (HCC) (Primary Dx) 12/08/2024 Orders Only [facility] - RECRUITING MANAGER [address] [place] [phone] Shane Bull MD Adenocarcinoma of endometrium (CMS/HCC) ; Recurrent carcinoma of endometrium (CMS/HCC) 12/08/2024 Travel 11/17/2024 Orders Only [facility] [address] [place] [address] Adrianna Dickson MD Adenocarcinoma of endometrium (HCC) 11/06/2024 Refill [facility] - RECRUITING MANAGER [address] [place] [phone] Shane Bull MD MEDICATION REFILL 11/06/2024 Refill [facility] - RECRUITING MANAGER [address] [place] [address] Shane Bull MD MEDICATION REFILL 10/28/2024 Orders Only [facility] - RECRUITING MANAGER [address] [place] [address] Shane Bull MD Recurrent carcinoma of endometrium (HCC) 10/27/2024 9:30 AM MANAGEMENT LEAD Office Visit [facility] - RECRUITING MANAGER [address] [place] [address] Sahne Bull MD Recurrent carcinoma of endometrium (CMS/HCC) (Primary Dx); Adenocarcinoma of endometrium (HCC) 10/27/2024 Telephone [facility] - RECRUITING MANAGER [address] [place] [address] Rd [address] [place] [phone] Shane Bull MD Follow-up 10/27/2024 Travel 10/06/2024 9:30 AM MANAGEMENT LEAD Office Visit [facility] - RECRUITING MANAGER [address] [place] [address] Rd [address] [place] [phone] Shane Bull MD Adenocarcinoma of endometrium (HCC) (Primary Dx) 10/06/2024 Travel 10/01/2024 9:02 AM MANAGEMENT LEAD - 10/01/2024 11:59 PM MANAGEMENT LEAD Hospital Encounter Wound Care at [facility] [address] [place] [address] Ruddy Anderson MD Discharge Disposition: Home or Self Care from Last 3 Months Immunizations Name Administration Dates Next Due Covid [employer] primary monoval ent 12+ yr 0.3mL Purple cap 01/10/2021,12/18/2020 HEP B VACCINE, ADULT 3 DOSE 12/29/2003, 3,01/28/2003 INFLUENZA VACCINE 09/04/2018,09/04/2018 INFLUENZA VACCINE, CELL CULT URE, QUADR. (FLUCELVAX QUADRIVALENT; 6MO+) (CCIIV4) 09/13/2017 INFLUENZA VACCINE, QUADR. (A FLURIA, FLUZONE QUADRIVALENT; 6MO+) (IIV4) 09/17/2019 INFLUENZA VACCINE, QUADR. (F LUZONE; FLULAVAL; FLUARIX; AFLURIA QUADRIVALENT; 6MO+), 0.5 ML (IIV4) 09/17/2019,09/03/2018 Pneumococcal Pcv13 Conj 04/30/2019 TDAP (7yrs+) 10/22/2018 TDAP, HISTORIC VACCINE 10/26/2018 Zoster Hzv Vacc Recombinant Inj Im 08/27/2020 iNFLUENZA VACCINE, RECOM-SALAZAR, QUADR. (FLUBLOCK QUADRIVALENT; 18Y+) (RIV4) 08/27/2020 Family History Medical History Relation Name Comments Cancer - Prostate Father 78 y/o None Known Maternal Grandfather 96 y/o Brain Tumor Maternal Grandmother 98 y/o Cirrhosis Paternal Grandfather Alzheimer's Disease Paternal Grandmother CAD (Coronary Artery Disease) Sister 1 CVA Sister 1 complication fr om DVT/embolism paralized neck down for 15 years Cancer - Breast Sister 1 42 y/o bilat eral masectomy Diabetes - Type 2 Sister 1 passed luci y from this-unknown diagnosis Relation Name Status Comments Father Maternal Grandfather Maternal Grandmother Mother Paternal Grandfather Paternal Grandmother Sister 1 Sister 2 Social History Tobacco Use Types Packs/Day Years Used Date Smoking Tobacco: Former Cigarettes 0.1 30 1 01/07/1986 - 11/06/2016 Smokeless Tobacco: Former Tobacco Cessation:Counseling Given: Not Answered Alcohol Use Standard Drinks/Week Comments No 0 [...] Recorded Patient Health Questionnaire-2 Score 1 08/05/2024 [facility] - Occupational Stress [...] money to buy more. Never true 10/08/20 Within the past 12 months, t he [...] place to sleep or slept in a intermediate (including now)? No 10/08/2023 Sex and Gender Information Value Date Recorded Sex Assigned at Female 09/03/2023 4:02 PM CDT Gender Identity Female 09/03/2023 4:02 PM CDT Sexual Orientation Not on file Last Filed Vital Signs Vital Sign Reading Time Taken Comments Blood Pressure 132/70 12/08/2024 9:27 AM MANAGEMENT LEAD Pulse 88 09/18/2024 2:15 PM CDT Temperature 36.7 C (98 F) 09/18/2024 1:30 PM CDT Respiratory Rate 18 09/18/2024 2:15 PM CDT Oxygen Saturation 93% 09/18/2024 2:15 PM CDT Inhaled Oxygen Concentration - - Weight 52.2 kg (115 lb) 12/08/2024 9:27 AM MANAGEMENT LEAD Height 162.6 cm (5' 4 ) 12/08/2024 9:27 AM MANAGEMENT LEAD Body Mass Index 19.74 12/08/2024 9:27 AM MANAGEMENT LEAD Plan of Treatment Upcoming Encounters Date Type Department Care Team (Late st Contact Info) Description 12/29/2024 11:30 AM MANAGEMENT LEAD Office Visit [facility] - RECRUITING MANAGER [address] [place] [address] Shane Bull MD [address] [place] [address] 01/19/2025 11:00 AM MANAGEMENT LEAD Office Visit [facility] - RECRUITING MANAGER [address] [place] [phone] Shane Bull MD [address] [place] [address] Health Maintenance Due Date Last Done Comments BONE DENSITY TESTING 1955 COLOGUARD (AGES 45-75) - COLON CA SCREENING [address] COLON[address]APHY - COLON CA SCREENING 1955 FIT - COLON CA SCREENING 1955 FLEX SIG - COLON CA SCREENING 1955 MEDICARE AWV 12 MONTHS 04/30/2020 04/30/2019 PNEUMOCOCCAL VACCINE 50+ (2 of 2 - PPSV23) 04/30/2020 04/30/2019 ZOSTER VACCINE (2 of 2) 10/22/2020 08/27/2020 MAMMOGRAM 08/25/2021 08/25/2019, 11/2018 (Done Outside Per Report) COLONOSCOPY - COLON CA SCREENING 10/06/2023 10/06/2013 (Done Outside Per Patient) Colorectal Cancer Screening 10/06/2023 COVID-19 VACCINE (3 - season) 2024 01/10/2021, 12/18/2020 INFLUENZA VACCINE (#1) 2024 , 09/17/2019, 09/17/2019, Additional history exists DEPRESSION SCREENING 11/19/2024 07/02/2024, 01/23/2023, 01/31/2022 DTAP/TDAP/TD VACCINES (3 - Td or Tdap) 10/26/2028 10/26/2018, 10/22/2018 Respiratory Syncytial Virus (RSV) Vaccine Pt: or over 60 yrs (1 - 1-dose 75+ series) 2029 HEPATITIS B VACCINE Completed 12/29/2003, 03/11/2003, 01/28/2003 HEPATITIS C SCREENING Completed 04/18/2018 HIB VACCINE Aged Out No longer eligi ble based on patient's age to complete this topic HPV VACCINE Aged Out No longer eligi ble based on patient's age to complete this topic MENINGOCOCCAL (Group B) VACCINE Aged Out No longer eligible based on patient's age to complete this topic MENINGOCOCCAL VACCINE Aged Out No darryl leatha eligible based on patient's age to complete this topic Goals Goal Patient Goal Type Associated Problems Recent Progress Patient-Stated? Author Medication Management General On track( 024 9:50 AM CDT) No Layo Nuñez, RN Note: Expected end date: Interventions: Take all medications as prescribed Let your doctor know right away about any changes in your medications Make sure to request a refill of your medication at least one week prior to your last dose Medical Devices Implanted Type Area Mutual Fund Sales Agent Device Identifier Shelf Expiration Date Model / Serial / Lot Dcboo 21.5d Implanted:Qty: 1 on 12/05/2022 by Abhishek Crews MD at [facility] Ocular Left: Eye [employer] 07/31/2025 [id number] / [id number] / N/A [employer] Toric Ii Iol [id number] + 21.5d Se 1.50d Cyl Implanted:Qty: 1 on 11/21/2022 by Abhishek Crews MD at [facility] Right: Eye 06/25/2025 [id number] + 21.5D SE / [id number] / N/A Nail Im 10mm 38cm Intrtn Rt Troch 125d Implanted:Qty: 1 on 10/09/2023 by Shane Almanzar MD at [facility] Right: Femur [employer] [id number] / / Kit Screw 90mm 4.5mm Intrtn Troch Ti Lag Implanted:Qty: 1 on 10/09/2023 by Shane Almanzar MD at [facility] Right: Femur [employer] [id number] / / Screw 5mm 45mm Lopro Intnl Hex Fem Trgn Implanted:Qty: 1 on 10/09/2023 by Shane Almanzar MD at [facility] [employer] [facility] 02/21/2032 [id number] / / [id number] Procedures Procedure Name Priority Date/Time Associated Diagnosis Comments PET CT SKULL TO MID THIGH Routine 12/15/2024 11:28 AM MANAGEMENT LEAD Adenocarcinoma of endometrium (CMS/HCC) Recurrent carcinoma of endometrium (CMS/HCC) LAB RESULTS ORDER 12/04/2024 LAB RESULTS ORDER 12/04/2024 LAB RESULTS ORDER 12/04/2024 LAB RESULTS ORDER 12/04/2024 LAB RESULTS ORDER 12/04/2024 LAB RESULTS ORDER 11/13/2024 LAB RESULTS ORDER 11/13/2024 LAB RESULTS ORDER 11/13/2024 LAB RESULTS ORDER 10/23/2024 LAB RESULTS ORDER 10/23/2024 LAB RESULTS ORDER 10/23/2024 LAB RESULTS ORDER 10/23/2024 LAB RESULTS ORDER 10/01/2024 LAB RESULTS ORDER 10/01/2024 MAMMOGRAM Routine 08/25/2019 HEPATITIS C ANTIBODY Routine 04/18/2018 10:29 AM CDT Health care maintenance from Last 3 Months or Most Recently Relevant to Health Maintenance Results * PET CT Skull To Mid Thigh (12/15/2024 11:28 AM MANAGEMENT LEAD) Anatomical Region Laterality Modality Head, Lower Extremity Nuclear Me dicine 12/15/2024 11:5 1 AM MANAGEMENT LEAD Impressions 12/15/2024 1:41 PM MANAGEMENT LEAD IMPRESSION: 1. Interval disease progression with increased size and metabolic activity of the masslike lesion in the proximal left clavicle with new involvement of the sternal manubrium. 2. Slight increased size and metabolic activity of the subcentimeter left upper lobe pulmonary nodule is likely metastatic. No FDG avid mediastinal lymphadenopathy. 3. Interval increased size and metabolic activity of the right groin mass with extension deep into the external iliac space and inguinal crease. There is also a new masslike extension on the skin surface. Overall findings are concerning for disease progression. Underlying inflammatory/abscess changes are not excluded. 4. Interval resolution of the previously seen left supraclavicular lymph node. 5. New focus of uptake in the left groin musculature may be inflammatory. Recommend continued follow-up. > Interpreting Provider: Beverley Green DO on 12/15/2024 1:41 PM Narrative 12/15/2024 1:41 PM MANAGEMENT LEAD PROCEDURE: PET CT SKULL TO MID THIGH DATE/TIME OF EXAM: 12/15/2024 11:28 AM CLINICAL INFORMATION: None relevant/not provided if blank. Indication: C54.1: Malignant neoplasm of endometrium (HCC) C54.1: Malignant neoplasm of endometrium (HCC) COMPARISON: PET/CT dated 07/07/2024 Referring provider: Dr. Bull HISTORY: 69-year-old with a history of endometrial adenocarcinoma initially diagnosed in October 2016 status post hysterectomy at that time and chemotherapy. Subsequently she developed multiple recurrences in the pelvis, inguinal lymph node and supraclavicular node status post chemotherapy and radiation. Most recent radiation was to the left clavicle completed in September 2021. She also underwent cryoablation of the left clavicular mass on 03/03/2024. Most recent progression with a new left upper lobe pulmonary nodule diagnosed in June 2024 status post chemotherapy. Evaluate for subsequent treatment strategy. TECHNIQUE: 7.53 mCi of F-18 FDG by IV in the right antecubital fossa. PET/CT image acquisition from the base of the skull to upper thighs after approximately 60 minutes [address]injection with a CT being low dose, noncontrast. No separate report for the CT was generated since it was used for attenuation correction and anatomic localization. Blood glucose level of the time of injection was 163 mg/dl. FINDINGS: For reference, SUV max of liver is 2.1. HEAD AND NECK: The previously seen left supraclavicular lymph node has resolved. However, the large masslike lesion in the proximal left clavicle has increased in size and metabolic activity with greater extension distally measuring 4.4 x 8.4 cm with SUV Max up to 14.5 (previously 4.0 x 4.3 cm with SUV Max 8.5. Relative photopenia is again seen proximally in the clavicle suggestive of necrosis. The lesion now appears to extend into the sternal manubrium with destructive changes and soft tissue density measuring approximately 2.9 cm with SUV Max 13.6. Foci of uptake are seen in the right maxilla with SUV Max up to 11.9, likely due to periodontal disease. CHEST: The subcentimeter left upper lobe pulmonary nodule has slightly increased in prominence now measuring 8 mm with SUV Max 3.6 (previously 7 mm with SUV Max 3.3), likely metastatic. A 3 mm nodule is again seen in the lingula without increased metabolic activity, too small to characterize. The right lung is clear. No evidence of pneumothorax or pleural effusion. No abnormal FDG avid mediastinal nodes. Benign-appearing bilateral axillary nodes. A right-sided chest port is again seen terminating in the cavoatrial junction. Atherosclerotic calcifications within the aortic arch and coronary arteries. ABDOMEN AND PELVIS: There is significant worsening of the lesion in the right groin now presenting with a large mass with masslike extension on the skin surface. The right groin mass measures approximately 5.7 x 6.6 cm with SUV Max 13.6 with deep extension into the external iliac space measuring 2.8 x 5.3 cm with SUV Max 14.1 and into the right inguinal crease with SUV Max up to 15.2. The there is new masslike extension on the surface of the skin measuring 2.3 x 4.3 cm with SUV Max 13.0. There is a new focus of uptake in the left groin just anterior to the acetabulum measuring 1.2 cm with SUV Max 6.6, indeterminate. The liver, kidneys, adrenal glands, spleen and pancreas are grossly unremarkable. Heterogeneous intense FDG uptake is seen within the colon, inflammatory versus normal variant. Diverticulosis without evidence of diverticulitis. Atherosclerotic calcifications within the aorta and iliac arteries. MUSCULOSKELETAL: Interval increased size and metabolic activity within the large masslike lesion of the proximal left clavicle with new involvement of the sternal manubrium as detailed above. Interval fixation hardware is again seen in the right hip. Degenerative changes throughout the spine. Radiotracer infiltration is noted in the right antecubital fossa. Inflammatory changes in the left shoulder. There is Procedure Note Beverley Green, DO - 12/15/2024 PROCEDURE: PET CT SKULL TO MID THIGH DATE/TIME OF EXAM: 12/15/2024 11:28 AM CLINICAL INFORMATION: None relevant/not provided if blank. Indication: C54.1: Malignant neoplasm of endometrium (HCC) C54.1: Malignant neoplasm of endometrium (HCC) COMPARISON: PET/CT dated 07/07/2024 Referring provider: Dr. Bull HISTORY: 69-year-old with a history of endometrial adenocarcinomainitially diagnosed in October 2016 status post hysterectomy at that time and chemotherapy. Subsequently she developed multiple recurrences in the pelvis, inguinal lymph node and supraclavicular node status post chemotherapy and radiation. Most recent radiation was to the leftclavicle completed in September 2021. She also underwent cryoablation of the left clavicular mass on 03/03/2024. Most recent progression with a new leftupper lobe pulmonary nodule diagnosed in June 2024 status post chemotherapy. Evaluate for subsequent treatment strategy. TECHNIQUE: 7.53 mCi of F-18 FDG by IV in the right antecubital fossa. PET/CT image acquisition from the base of the skull to upper thighsafter approximately 60 minutes postinjection with a CT being low dose, noncontrast. No separate report for the CT was generated since it wasused for attenuation correction and anatomic localization. Blood glucoselevel of the time of injection was 163 mg/dl. FINDINGS: For reference, SUV max of liver is 2.1. HEAD AND NECK: The previously seen left supraclavicular lymph node has resolved. However, the large masslike lesion in the proximal leftclavicle has increased in size and metabolic activity with greater extension distally measuring 4.4 x 8.4 cm with SUV Max up to 14.5 (previously 4.0x 4.3 cm with SUV Max 8.5. Relative photopenia is again seen proximally in the clavicle suggestive of necrosis. The lesion now appears to extendinto the sternal manubrium with destructive changes and soft tissue density measuring approximately 2.9 cm with SUV Max 13.6. Foci of uptake are seen in the right maxilla with SUV Max up to 11.9, likely due to periodontal disease. CHEST: The subcentimeter left upper lobe pulmonary nodule has slightly increased in prominence now measuring 8 mm with SUV Max 3.6 (previously7 mm with SUV Max 3.3), likely metastatic. A 3 mm nodule is again seen inthe lingula without increased metabolic activity, too small to characterize. The right lung is clear. No evidence of pneumothorax or pleuraleffusion. No abnormal FDG avid mediastinal nodes. Benign-appearing bilateralaxillary nodes. A right-sided chest port is again seen terminating in thecavoatrial junction. Atherosclerotic calcifications within the aortic arch and coronary arteries. ABDOMEN AND PELVIS: There is significant worsening of the lesion in the right groin now presenting with a large mass with masslike extension onthe skin surface. The right groin mass measures approximately 5.7 x 6.6 cmwith SUV Max 13.6 with deep extension into the external iliac space measuring 2.8 x 5.3 cm with SUV Max 14.1 and into the right inguinal crease withSUV Max up to 15.2. The there is new masslike extension on the surface ofthe skin measuring 2.3 x 4.3 cm with SUV Max 13.0. There is a new focus of uptake in the left groin just anterior to the acetabulum measuring 1.2cm with SUV Max 6.6, indeterminate. The liver, kidneys, adrenal glands, spleen and pancreas are grossly unremarkable. Heterogeneous intense FDG uptake is seen within the colon, inflammatory versus normal variant. Diverticulosis without evidence of diverticulitis. Atherosclerotic calcifications within the aorta andiliac arteries. MUSCULOSKELETAL: Interval increased size and metabolic activity withinthe large masslike lesion of the proximal left clavicle with new involvementof the sternal manubrium as detailed above. Interval fixation hardware is again seen in the right hip. Degenerative changes throughout the spine. Radiotracer infiltration is noted in the right antecubital fossa. Inflammatory changes in the left shoulder. There is IMPRESSION: 1. Interval disease progression with increased size and metabolicactivity of the masslike lesion in the proximal left clavicle with newinvolvement of the sternal manubrium. 2. Slight increased size and metabolic activity of the subcentimeterleft upper lobe pulmonary nodule is likely metastatic. No FDG avidmediastinal lymphadenopathy. 3. Interval increased size and metabolic activity of the right groinmass with extension deep into the external iliac space and inguinal crease. There is also a new masslike extension on the skin surface. Overall findings are concerning for disease progression. Underlying inflammatory/abscess changes are not excluded. 4. Interval resolution of the previously seen left supraclavicular lymph node. 5. New focus of uptake in the left groin musculature may beinflammatory. Recommend continued follow-up. > Interpreting Provider: Beverley Green DO on 12/15/2024 1:41 PM Shane Bull MD NM ORDERABLES * LAB RESULTS ORDER (12/04/2024) Only the most recent of14 resultswithin the time period is included. 12/04/2024 Narrative 12/04/2024 Ordered by an unspecified provider. Scanned Document LAB - THERAPEUTIC DR MARCELO MONITORING ORDERABLES * MAMMOGRAM (08/25/2019) Anatomical Region Laterality Modality Other Historical Provider SCANNING ONLY * HEPATITIS C ANTIBODY (04/18/2018 10:29 AM CDT) Hepatitis C Antibody <0.1 0.0 - 0.9 s/co ratio [facility] INSURANCE BILL Comment: Negative: < 0.8 Indeterminate: 0.8 - 0.9 Positive: > 0.9 . The CDC recommends that a positive HCV antibody result be followed up with a HCV Nucleic Acid Amplification test (890664). FASTING Blood BLOOD SPECIMEN / Unknown 04/18/2018 10:29 AM CDT 04/18/2018 Narrative Resulting Agency Comment [facility] [address] [facility] [phone] Jose Chandler APRN-HOSPICE CARE CONSULTANT LAB - CORE FEEDER RY ORDERABLES [facility] INSURANCE BILL [address] [place] [address] from Last 3 Months or Most Recently Relevant to Health Maintenance Advance Directives * Full Code (Latest Code Status on File) Date Activated Date Inactivated Comments 03/03/2024 7:20 PM 03/04/2024 11:41 AM * Full Code Date Activated Date Inactivated Comments 10/08/2023 6:30 PM 10/14/2023 4:01 PM * Full Code Date Activated Date Inactivated Comments 10/08/2023 3:09 PM 10/08/2023 5:58 PM * Full Code Date Activated Date Inactivated Comments 04/26/2023 3:37 PM 05/03/2023 12:57 PM * Full Code Date Activated Date Inactivated Comments 02/09/2023 4:46 AM 02/10/2023 3:01 PM Care Teams Knitting Machine Operator Helper Relationship Specialty Start Date End Date Jose Chandler, DESIGN LEAD-HOSPICE CARE CONSULTANT [address] [place] [phone] PCP - General Internal Medicine 10/31/23
--- OUTSIDE RECORDS SUMMARY | 2024-12-25 14:12 | XMS_ITS | Encounter Summary ---
Author Organization [facility] Address [address] [place] [address] Care Team Providers Care Digital Media Strategist Name Role Phone Jose Chandler APRN-KAJAL Primary Care Provide r A, Unknown Practice Primary Care Provider [phone] Jose Chandler APRN-KAJAL Primary Care Provide r Reason for Visit * Reason Onset Date Comments Patient Requested Call 09/05/2021 Encounter Details Date Type Department Care Team (Late st Contact Info) Description 09/05/2021 Telephone [facility] [address] [place], [place] [phone] Shane Bull MD [address] [facility] [address] [place] [address] Patient Requested Call Social History Tobacco Use Types Packs/Day Years Used Date Smoking Tobacco: Former Cigarettes 0.1 30 1 01/07/1986 - 11/06/2016 Smokeless Tobacco: Never Alcohol Use Standard Drinks/Week Comments No 0 (1 standard drink = 0.6 oz pur e alcohol) AUDIT-C Answer Date Recorded Frequency of Alcohol Consumption Never 12/10/2019 Average Number of Drinks Not on file 020 Frequency of Binge Drinking Not on file 11/20 Sex and Gender Information Value Date Recorded Sex Assigned at Female 09/03/2023 4:02 PM CDT Gender Identity Female 09/03/2023 4:02 PM CDT Sexual Orientation Not on file documented as of this encounter Functional Status Functional Status Response Date of Assess ment Is person deaf or have serious hearing difficult y? No 11/07/2016 Is person blind or have serious difficulty seein g? No 11/07/2016 Does person have serious dif ficulty walking/climbing stairs? No 11/07/2016 Does person have difficulty dressing/bathing? No 11/07/2016 Does person have difficulty doing errands alone? No 11/07/2016 Cognitive Status Response Date of Assessm ent Does person have difficulty concentrating/remembering/making decisions? No 11/07/2016 documented as of this encounter Miscellaneous Notes * Telephone Encounter - Mona Gunderson RN - 09/05/2021 3:27 PM CDT Patient finished radiation on 09/26/2021 She still is waiting for her Everolimus because of needing a patti to cover copay which is $3,000 for 28 day supply She was hoping the tumor would have shrunk with radiation but it has not and the pain is controlledwith OTC and 1-2 Roswell's per day She is worried because she is not taking anything right now * Telephone Encounter - Lindy Salmeron - 09/05/2021 8:47 AM CDT Pt has information for Mirna. Please call. documented in this encounter Plan of Treatment Upcoming Encounters Date Type Department Care Team (Late st Contact Info) Description 12/29/2024 11:30 AM SUPERVISOR PRINT LINE Office Visit [facility] - CHEF INSTRUCTOR [address] [facility] [address] [place] [address] Shane Bull MD [address] [facility] [address] [place] [address] 01/19/2025 11:00 AM SUPERVISOR PRINT LINE Office Visit [facility] - CHEF INSTRUCTOR [address] [place] [address] Shane Bull MD [address] [facility] [address] [place] [address] documented as of this encounter Visit Diagnoses Not on filedocumented in this encounter Care Teams Digital Media Strategist Relationship Specialty Start Date End Date Jose Chandler APRN-KAJAL PCP - General 04/05/18 10/08/22 A, Unknown Practice [address] [place] [phone] PCP - General 10/05/23 10/30/23 Jose Chandler, JOSSELIN-BOTTLING ROOM WORKER [address] [place] [phone] PCP - General Internal Medicine 10/31/23 documented as of this encounter
--- OUTSIDE RECORDS SUMMARY | 2024-12-25 14:12 | XMS_ITS | Referral Summary ---
Author Organization [facility] Address [address] [facility] [place] [address] Care Team Providers Care Junior Programmer Analyst Name Role Phone Jose Chandler PETROLEUM TRANSPORT DRIVER-[facility] Primary Care Provide r Source Comments [facility],non-owned Affiliates and Associated Physician Practices is amultiple site organization consisting of ambulatory clinics and hospital sitesin [place], [place], [place]. This disclosure is being madepursuant to the Care Everywhere program and may not contain all information available regarding this patient. Last updated 18.[facility] Encounters Date Type Department Care Team Description 12/24/2024 Telephone [facility] - STAFF COMBAT INFORMATION CENTER OFFICER [address] [place] [address] Shane Bull MD Question 12/23/2024 Orders Only [facility] - STAFF COMBAT INFORMATION CENTER OFFICER [address] [place] [address] Ekta Kyle RN 12/23/2024 Telephone [facility] - STAFF COMBAT INFORMATION CENTER OFFICER [address] [place] [address] Shane Bull MD Med Question; Returned Call 12/17/2024 Telephone [facility] - STAFF COMBAT INFORMATION CENTER OFFICER [address] [place] [address] Shane Bull MD Follow-up 12/17/2024 Travel 12/17/2024 8:30 AM NITRIC ACID CONCENTRATOR OPERATOR Video Visit [facility] - STAFF COMBAT INFORMATION CENTER OFFICER [address] [place] [phone] Shane Bull MD Adenocarcinoma of endometrium (CMS/HCC) 12/15/2024 Travel 12/15/2024 10:24 AM NITRIC ACID CONCENTRATOR OPERATOR - 12/15/2024 11:59 PM NITRIC ACID CONCENTRATOR OPERATOR Hospital Encounter [facility] - PET Scan [address] [facility] [address] [place] [address] Shane Bull MD INSTALLER TECHNICIAN Oncology Discharge Disposition: Home or Self Care 12/08/2024 Orders Only [facility] - STAFF COMBAT INFORMATION CENTER OFFICER [address] [place] [address] Rd [address] [place] [phone] Shane Bull MD Adenocarcinoma of endometrium (CMS/HCC) ; Recurrent carcinoma of endometrium (CMS/HCC) 12/08/2024 Travel 12/08/2024 9:30 AM NITRIC ACID CONCENTRATOR OPERATOR Office Visit [facility] - STAFF COMBAT INFORMATION CENTER OFFICER [address] [place] [address] Rd [address] [place] [phone] Shane Bull MD Malignant neoplasm of ovary, unspecified laterality (HCC) (Primary Dx) 11/17/[address] [facility] IVR [address] [place] [address] Adrianna Dickson MD Adenocarcinoma of endometrium (HCC) 11/06/2024 Refill [facility] - STAFF COMBAT INFORMATION CENTER OFFICER [address] [place] [address] Rd [address] [place] [phone] Shane Bull MD MEDICATION REFILL 11/06/2024 Refill [facility] - STAFF COMBAT INFORMATION CENTER OFFICER [address] [place] [address] Rd [address] [place] [phone] Shane Bull MD MEDICATION REFILL 10/28/2024 Orders Only [facility] - STAFF COMBAT INFORMATION CENTER OFFICER [address] [place] [address] Rd [address] [place] [phone] Shane Bull MD Recurrent carcinoma of endometrium (HCC) 10/27/2024 Telephone [facility] - STAFF COMBAT INFORMATION CENTER OFFICER [address] [place] [phone] Shane Bull MD Follow-up 10/27/2024 Travel 10/27/2024 9:30 AM NITRIC ACID CONCENTRATOR OPERATOR Office Visit [facility] - STAFF COMBAT INFORMATION CENTER OFFICER [address] [place] [phone] Shane Bull MD Recurrent carcinoma of endometrium (CMS/HCC) (Primary Dx); Adenocarcinoma of endometrium (HCC) 10/06/2024 Travel 10/06/2024 9:30 AM NITRIC ACID CONCENTRATOR OPERATOR Office Visit [facility] - STAFF COMBAT INFORMATION CENTER OFFICER [address] [place] [phone] Shane Bull MD Adenocarcinoma of endometrium (HCC) (Primary Dx) 10/01/2024 9:02 AM NITRIC ACID CONCENTRATOR OPERATOR - 10/01/2024 11:59 PM NITRIC ACID CONCENTRATOR OPERATOR Hospital Encounter Wound Care at [facility] [address] [place] [address] Ruddy Anderson MD Discharge Disposition: Home or Self Care from Last 3 Months Allergies No known active allergies Medications * [...] Patch, 0, 0, Route to Pharmacy Electronically, [facility] #[id number], [id number] 41, 160, cm, 04/08/24 10:43:00 CDT, Height, 60.3, kg, 04/08/24 10:43:00 CDT, Weight 11/18/2024 Active Narcan 4 MG/0.1ML nasal spray 1 spray(s), Nasal, as directed, PRN, 1 each, [place], 0, 0, as ordered For suspected opiod overdose, spray the contents of one device in either nostril. May repeat after 3 minutes if no or minimal response, Route to Pharmacy Electronically, [id number], [id number] 41, 160, cm, 04/08/24 10:43:00 CDT, Height, [...] Ovarian tumor 11/06/2016 Mass of inguinal region Immunizations Name Administration Dates Next Due Cue primary monoval ent 12+ yr 0.3mL Purple [...] RECOM-SALAZAR, QUADR. (FLUBLOCK QUADRIVALENT; 18Y+) (RIV4) 08/27/2020 Social History Tobacco Use Types Packs/Day Years [...] Recorded Patient Health Questionnaire-2 Score 1 08/05/2024 [facility] [place] of Occupat ional Health - Occupational Stress [...] place to sleep or slept in a long term (including now)? No 10/08/2023 Sex and Gender Information Value Date Recorded Sex Assigned at Female 09/03/2023 4:02 PM CDT Gender Identity Female 09/03/2023 4:02 PM CDT Sexual Orientation Not on file Last Filed Vital Signs Vital Sign Reading Time Taken Comments Blood Pressure 132/70 12/08/2024 9:27 AM NITRIC ACID CONCENTRATOR OPERATOR Pulse 88 09/18/2024 2:15 PM CDT Temperature 36.7 C (98 F) 09/18/2024 1:30 PM CDT Respiratory Rate 18 09/18/2024 2:15 PM CDT Oxygen Saturation 93% 09/18/2024 2:15 PM CDT Inhaled Oxygen Concentration - - Weight 52.2 kg (115 lb) 12/08/2024 9:27 AM NITRIC ACID CONCENTRATOR OPERATOR Height 162.6 cm (5' 4 ) 12/08/2024 9:27 AM NITRIC ACID CONCENTRATOR OPERATOR Body Mass Index 19.74 12/08/2024 9:27 AM NITRIC ACID CONCENTRATOR OPERATOR Functional Status Functional Status Response Date of [...] person have difficulty concentrating/remembering/making decisions? No 09/18/2024 Plan of Treatment Upcoming Encounters Date Type Department Care Team (Late st Contact Info) Description 12/29/2024 11:30 AM NITRIC ACID CONCENTRATOR OPERATOR Office Visit [facility] - STAFF COMBAT INFORMATION CENTER OFFICER [address] [facility] [address] [place] [address] Shane Bull MD [address] [place] [address] 01/19/2025 11:00 AM NITRIC ACID CONCENTRATOR OPERATOR Office Visit [facility] - STAFF COMBAT INFORMATION CENTER OFFICER [address] [facility] [address] [place] [address] Shane Bull MD [address] [place] [address] Goals Goal Patient Goal Type Associated Problems [...] last dose Medical Devices Implanted Type Area Solution Advisor Device Identifier Shelf Expiration Date Model / Serial / Lot Dcboo 21.5d Implanted:Qty: 1 on 12/05/2022 by Abhishek Crews MD at [facility] Ocular Left: Eye [employer] 07/31/2025 [id number] / [id number] / N/A Technis Eyhance Toric Ii Iol [id number] + 21.5d Se 1.50d Cyl Implanted:Qty: 1 on 11/21/2022 by Abhishek Crews MD at [facility] Right: Eye 06/25/2025 [id number] + 21.5D SE / [id number] / N/A Nail Im 10mm 38cm Intrtn Rt Troch 125d Implanted:Qty: 1 on 10/09/2023 by Shane Almanzar MD at [facility] Right: Femur [employer] [id number] / / Kit Screw 90mm 4.5mm Intrtn Troch Ti Lag Implanted:Qty: 1 on 10/09/2023 by Shane Almanzar MD at [facility] Right: Femur [employer] [id number] / / Screw 5mm 45mm Lopro Intnl Hex Fem Trgn Implanted:Qty: 1 on 10/09/2023 by [facility] 02/21/2032 [id number] / / [id number] Procedures Procedure Name Priority Date/Time Associated Diagnosis Comments PET CT SKULL TO MID THIGH Routine 12/15/2024 11:28 AM NITRIC ACID CONCENTRATOR OPERATOR Adenocarcinoma of endometrium (CMS/HCC) Recurrent carcinoma of [...] Skull To Mid Thigh (12/15/2024 11:28 AM NITRIC ACID CONCENTRATOR OPERATOR) Anatomical Region Laterality Modality Head, Lower Extremity Nuclear Me dicine 12/15/2024 11:5 1 AM NITRIC ACID CONCENTRATOR OPERATOR Impressions 12/15/2024 1:41 PM NITRIC ACID CONCENTRATOR OPERATOR IMPRESSION: 1. Interval disease progression with increased [...] 12/15/2024 1:41 PM Narrative 12/15/2024 1:41 PM NITRIC ACID CONCENTRATOR OPERATOR PROCEDURE: PET CT SKULL TO MID THIGH [...] with a HCV Nucleic Acid Amplification test ([id number]). FASTING Blood BLOOD SPECIMEN / Unknown 04/18/2018 10:29 AM CDT 04/18/2018 Narrative Resulting Agency Comment [facility] [address] [facility] [phone] Jose Chandler PETROLEUM TRANSPORT DRIVER-[place]OM[place]O PULPER OPERATOR LAB - INFORMATION SECURITY RISK ANALYST RY ORDERABLES [facility] INSURANCE BILL [address] [place] [address] from Last 3 Months or Most Recently [...] 4:46 AM 02/10/2023 3:01 PM Care Teams Junior Programmer Analyst Relationship Specialty Start Date End Date Jose Chandler, JOSSELIN-KAJAL [address] [place] [phone] PCP - General Internal Medicine 10/31/23
--- OUTSIDE RECORDS SUMMARY | 2024-12-25 14:12 | XMS_ITS | Encounter Summary ---
Author Organization [facility] Address [address] [place] [address] Care Team Providers Care Soaker Helper Name Role Phone Jose Chandler APRN-[facility] Primary Care Provide r Reason for Referral * Hospice (Urgent) - Open Specialty Diagnoses / Procedures Referred By Elissa marx Referred To Contact Hospice Services Diagnoses Recurrent carcinoma of endometrium (HCC) Shane Bull MD [address] [place] [address] Referral ID Status Reason Start Date Expiration Date V isits Requested Visits Authorized [id number] Open Specialty Services Required 12/24/2024 12/24/[phone] CULTURAL EDUCATION PROFESSOR Reason for Visit * Reason Onset Date Comments Med Question 12/23/2024 Returned Call 12/23/2024 Encounter Details Date Type Department Care Team (Late st Contact Info) Description 12/23/2024 Telephone [facility] - HEALTH SAFETY MANAGER [address] [facility] [address] [place] [address] Shane Bull MD [address] [place], [place] [phone] Med Question; Returned Call Social History Tobacco Use Types Packs/Day [...] Recorded Patient Health Questionnaire-2 Score 1 08/05/2024 [facility] of Occupat ional Health - Occupational Stress [...] place to sleep or slept in a fci (including now)? No 10/08/2023 Sex and Gender [...] No 09/18/2024 documented as of this encounter Miscellaneous Notes * Addendum Note - Mona Gunderson RN - 12/24/2024 11:55 AM CSTAddended by: MONA GUNDERSON on: 12/24/2024 11:55 AM Modules accepted: Orders CULTURAL EDUCATION PROFESSOR * Telephone Encounter - oMna Gunderson RN - 12/24/2024 11:52 AM AGRICULTURAL EDUCATION PROFESSOR Yogesh called and informed that [facility] will be calling them He let me know that she would like to keep appt on 12/29 to see Jorgito and get Treatment CULTURAL EDUCATION PROFESSOR * Telephone Encounter - Ekta Kyle RN - 12/23/2024 4:09 PM CST LVM for pt's returning his call about an order for hospice. Let him know that I will consult Mirna who is out ofthe office this afternoon and Dr. Bull and get back to him. Gave him my desk number to call back if desired. [phone]. CULTURAL EDUCATION PROFESSOR * Telephone Encounter - Lissy Fierro - 12/23/2024 3:01 PM CST PT's spouse is calling to get an order for Hospice. PT's spouse is interested in [facility] in [facility]. However if the MD has a different company that is prefered, is ok with that. C/B [phone] CULTURAL EDUCATION PROFESSOR documented in this encounter Plan of Treatment Upcoming Encounters Date Type Department Care Team (Late st Contact Info) Description 12/29/2024 11:30 AM AGRICULTURAL EDUCATION PROFESSOR Office Visit [facility] - HEALTH SAFETY MANAGER [address] [place] [phone] Shane Bull MD [address] [facility] [address] [place] [address] 01/19/2025 11:00 AM AGRICULTURAL EDUCATION PROFESSOR Office Visit [facility] - HEALTH SAFETY MANAGER [address] [place] [phone] Shane Bull MD [address] [facility] [address] [place] [address] Scheduled Referrals Name Type Priority Associated Diagnoses Orde r Schedule AMB REFERRAL TO HOSPICE Outpatient Referral Routine Recurrent carcinoma of endometrium (CMS/HCC) Ordered: 12/24/2024 documented as of this encounter Goals Goal [...] encounter Visit Diagnoses Diagnosis Adenocarcinoma of endometrium (CMS/HCC)- Primary Malignant neoplasm of corpus uteri, 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
--- OUTSIDE RECORDS SUMMARY | 2024-12-25 14:12 | XMS_ITS | Encounter Summary ---
Author Organization [facility] Address [address] [place] [address] Care Team Providers Care Analytical Manager Name Role Phone Jose Chandler APRN-CLEANING AND WASHING EQUIPMENT OPERATOR Primary Care Provide r Reason for Visit * Reason Comments Future Appointment Encounter Details Date Type Department Care Team (Late st Contact Info) Description 03/13/2024 Telephone [facility] - [address] [phone] Ivy Han RN Future Appointment Social History Tobacco Use Types Packs/Day Years Used Date Smoking Tobacco: Former Cigarettes 0.1 30 1 01/07/1986 - 11/06/2016 Smokeless Tobacco: Former Alcohol Use Standard Drinks/Week Comments No 0 (1 standard drink = 0.6 oz pur e alcohol) AUDIT-C Answer Date Recorded Q1: How often do you have a drink containing alcohol? Never 10/08/2023 Q2: How many drinks containi ng alcohol do you have on a typical day when you are drinking? Patient does not drink Q3: How often do you have si x or more drinks on one occasion? Never 10/08/2023 Overall Financial Resource Strain (CARDIA) Answe r Date Recorded How hard is it for you to pa y for the very basics like food, housing, medical care, and heating? Not hard at all 10/08/2023 PHQ-2 Answer Date Recorded Patient Health Questionnaire-2 Score 0 07/24/2023 [facility] - Occupational Stress [...] place to sleep or slept in a alf (including now)? No 10/08/2023 Sex and Gender Information Value Date Recorded Sex Assigned at Female 09/03/2023 4:02 PM CDT Gender Identity Female 09/03/2023 4:02 PM CDT Sexual Orientation Not on file documented as of this encounter Functional Status Functional Status Response Date of Assess ment Is person deaf or have serious hearing difficult y? No 03/03/2024 Is person blind or have serious difficulty seein g? No 03/03/2024 Does person have serious dif ficulty walking/climbing stairs? No 03/03/2024 Does person have difficulty dressing/bathing? No 03/03/2024 Does person have difficulty doing errands alone? Yes 03/03/2024 Cognitive Status Response Date of Assessm ent Does person have difficulty concentrating/remembering/making decisions? No 03/03/2024 documented as of this encounter Miscellaneous Notes * Telephone Encounter - Ivy Han RN - 03/13/2024 3:12 PM CDT Call received from pt to request f/u appt with Dr. Carmona 5 weeks from 04/09/24. Melchor Nuñez RN notified. documented in this encounter Plan of Treatment Upcoming Encounters Date Type Department Care Team (Late st Contact Info) Description 12/29/2024 11:30 AM HISTOPATHOLOGIST Office Visit [facility] - DESIGNER/WRITER [address] [place] [phone] Shane Bull MD [address] [place] [address] 01/19/2025 11:00 AM HISTOPATHOLOGIST Office Visit [facility] - DESIGNER/WRITER [address] [place] [phone] Shane Bull MD [address] [place] [address] documented as of this encounter Goals Goal Patient Goal Type Associated Problems Recent Progress Patient-Stated? Author Medication Management General On track( 024 9:50 AM CDT) No Layo Nuñez RN Note: Expected end date: Interventions: Take all medications as prescribed Let your doctor know right away about any changes in your medications Make sure to request a refill of your medication at least one week prior to your last dose documented as of this encounter Visit Diagnoses Not on filedocumented in this encounter Care Teams Analytical Manager Relationship Specialty Start Date End Date Jose Chandler, JOSSELIN-CLEANING AND WASHING EQUIPMENT OPERATOR [address] [place] [phone] PCP - General Internal Medicine 10/31/23 documented as of this encounter
--- OUTSIDE RECORDS SUMMARY | 2024-12-25 14:12 | XMS_ITS | Encounter Summary ---
Author Organization [facility] Address [address] [address] Care Team Providers Care Avionics Technician Name Role Phone Jose Chandler APRN-ROOF PROMENADE TILE SETTER Primary Care Provide r Reason for Visit * Reason Onset Date Comments Question 12/24/2024 Encounter Details Date Type Department Care Team (Late st Contact Info) Description 12/24/2024 Telephone [facility] - DOCUMENT CONTROL COORDINATOR [address] [place] [address] Shane Bull MD [address] [facility] [address] [place], [place] [id number] Question Social History Tobacco Use Types Packs/Day Years [...] Recorded Patient Health Questionnaire-2 Score 1 08/05/2024 [facility] - Occupational [...] place to sleep or slept in a [facility] (including now)? No 10/08/2023 Sex and Gender [...] Telephone Encounter - Mona Gunderson RN - 12/24/2024 2:20 PM MOLD YARD WORKER Spoke with , they are going to hold off on Hospice at this time because she still wants to do palliative Pembro He would like to respect her wishes He will be there Sunday with her but there is a chance they might not make it because he is not sure that he will be able to get her into the car Explained not to worry that we are here and to let us know what he needs from us YARD WORKER * Telephone Encounter - Hazel Mtz - 12/24/2024 1:13 PM CST Pt is calling wanting to know will still get any treatments on hospice? CB: [phone] YARD WORKER documented in this encounter Plan of Treatment Upcoming Encounters Date Type Department Care Team (Late st Contact Info) Description 12/29/2024 11:30 AM MOLD YARD WORKER Office Visit [facility] - DOCUMENT CONTROL COORDINATOR [address] [place] [phone] Shane Bull MD [address] [facility] [address] [place] [phone] 01/19/2025 11:00 AM MOLD YARD WORKER Office Visit [facility] - DOCUMENT CONTROL COORDINATOR [address] [place] [phone] Shane Bull MD [address] [facility] [address] [place] [phone] documented as of this encounter Goals Goal [...] on filedocumented in this encounter Care Teams Avionics Technician Relationship Specialty Start Date End Date Jose Chandler, CHEF MANAGER-ROOF PROMENADE TILE SETTER [address] [place] [phone] PCP - General Internal Medicine 10/31/23 documented as of this encounter
--- OUTSIDE RECORDS SUMMARY | 2024-12-25 14:12 | XMS_ITS | Patient Health Summary ---
Author Organization [facility] Address [address] [place] [address] Care Team Providers Care Pressure Controller Name Role Phone Jose Chandler APRN-SCIENTIFIC RECRUITER Primary Care Provide r Note from [facility],non-owned Affiliates and Associated Physician Practices is amultiple site organization consisting of ambulatory clinics and hospital sitesin [place], [place], [place] and [place]. This disclosure is being madepursuant to the Care Everywhere program and may not contain all information available regarding this patient. Last updated 18.[facility] Allergies No known active allergies Medications * Be aware that medications may not be up to date on this document. Alwaysverify current medications with the patient. * atorvastatin (Lipitor) 20 MG tablet Take 1 (one) tablet by mouth at bedtime * Acetaminophen (TYLENOL PO) Take 500 mg by mouth as needed * ferrous sulfate 325 (65 FE) MG tablet(Started 10/14/2023) Take 1 (one) tablet by mouth daily with breakfast * ibuprofen (Motrin) 400 MG tablet Take 1.5 (one and one-half) tablets by mouth every 6 hours as needed for Pain Takes every 18 hours * vitamin D3 (Cholecalciferol) 25 MCG (1000 UNITS) tablet Take 1 (one) tablet by mouth once daily * Calcium Carbonate-Vit D-Min ( Calcium/Vitamin D3) 600-800 MG-UNIT TABS * multivitamin daily tablet Take 1 (one) tablet by mouth daily with food * letrozole (Femara) 2.5 MG tablet(Started 06/09/2024) TAKE 1 TABLET BY MOUTH EVERY DAY 3 refills by 06/09/2025 * lenvatinib (Lenvima, 10 MG Daily Dose,) 10 MG capsule(Started 07/22/2024) Take 1 (one) capsule by mouth once daily Reasons: Endometrial Carcinoma 6 refills by 07/22/2025 * metFORMIN (Glucophage) 500 MG tablet(Started 07/23/2024) TAKE 1 TABLET BY MOUTH TWICE DAILY WITH THE MORNING AND EVENING MEAL 3 refills by 07/23/2025 * Pembrolizumab (KEYTRUDA IV) by Intravenous route Every 3 Weeks * amoxicillin-clavulanate (Augmentin) 875-125 MG tablet(Started 09/01/2024) Take 1 (one) tablet by mouth 2 times daily with morning and evening meal * gabapentin (Neurontin) 300 MG capsule(Started 09/01/2024) Take 1 (one) capsule by mouth 2 times daily Reasons: Neuropathic Pain 4 refills by 09/01/2025 * oxyCODONE, immediate release, (Roxicodone) 10 MG tablet(Started 10/27/2024) Take 1 (one) tablet by mouth every 6 hours as needed for Pain Reasons: Acute Pain, cancer pain * traMADol (Ultram) 50 MG tablet(Started 11/07/2024) Take 1 (one) tablet by mouth every 6 hours as needed for Pain * fentaNYL (Duragesic) 25 MCG/HR patch(Started 11/18/2024) 1 patch(es), TransDermal, q3days, 10 patch(es), Patch, 0, 0, Route to Pharmacy Electronically, [facility] #[id number], [id number], 160, cm, 04/08/24 10:43:00 CDT, Height, 60.3, kg, 04/08/24 10:43:00 CDT, Weight * Narcan 4 MG/0.1ML nasal spray(Started 11/10/2024) 1 spray(s), Nasal, as directed, PRN, 1 each, [place], 0, 0, as ordered For suspected opiod overdose, spray the contents of one device in either nostril. May repeat after 3 minutes if no or minimal response, [id number], [id number], 160, cm, 04/08/24 10:43:00 CDT, Height, 60.3, kg, 04/08/24 10:43:00 CDT, Weight Ended Medications* oxyCODONE, immediate release, (Roxicodone) 5 MG tablet (Started 09/19/2024)(Discontinued) Take 1 (one) tablet by mouth every 6 hours as needed for Pain Reasons: Acute Pain Active Problems Problem Noted Date Diagnosed Date Fallopian insufflation following sterilization r eversal 12/24/2024 Status post cryoablation 03/03/2024 Closed displaced intertrocha nteric fracture of right femur, initial encounter 10/08/2023 Right hip pain 10/08/2023 Post-operative wound abscess 04/26/2023 Wound dehiscence 02/09/2023 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 (FLUCELVAX QUADRIVALENT; 6MO+) (CCIIV4)(Given 09/13/2017) * INFLUENZA VACCINE, QUADR. (AFLURIA, FLUZONE QUADRIVALENT; 6MO+) (IIV4)(Given 09/17/2019) * INFLUENZA VACCINE, QUADR. (FLUZONE; FLULAVAL; FLUARIX; AFLURIA QUADRIVALENT; 6MO+), 0.5 ML (IIV4)(Given 09/17/2019, 09/03/2018) * Pneumococcal Pcv13 Conj(Given 04/30/2019) * TDAP (7yrs+)(Given 10/22/2018) * TDAP, HISTORIC VACCINE(Given 10/26/2018) * Zoster Hzv Vacc Recombinant Inj Im(Given 08/27/2020) * iNFLUENZA VACCINE, RECOM-SALAAZR, QUADR. 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 07/31/2025 [id number] / [id number] / N/A Technis Eyhance Toric Ii Iol [id number] + 21.5d Se 1.50d Cyl Implanted:Qty: 1 on 11/21/2022 by Abhishek Crews MD at [facility] Right: Eye 06/25/2025 [id number] + 21.5D SE / [id number] / N/A Nail Im 10mm 38cm Intrtn Rt Troch 125d Implanted:Qty: 1 on 10/09/2023 by Shane Almanzar MD at [facility] Right: Femur [employer] [id number] / / Kit Screw 90mm 4.5mm Intrtn Troch Ti Lag Implanted:Qty: 1 on 10/09/2023 by Shane Almanzar MD at [facility] Right: Femur [employer] [id number] / / Screw 5mm 45mm Lopro Intnl Hex Fem Trgn Implanted:Qty: 1 on 10/09/2023 by Shane Almanzar MD at [facility] [employer] 02/21/2032 [id number] / / [id number] Procedures * PET CT SKULL TO MID THIGH(Performed 12/15/2024) Performed for Adenocarcinoma of endometrium (CMS/HCC), Recurrent carcinoma of endometrium (CMS/HCC) * LAB RESULTS ORDER(Performed 12/04/2024) * LAB RESULTS ORDER(Performed 12/04/2024) * LAB RESULTS ORDER(Performed 12/04/2024) * LAB RESULTS ORDER(Performed 12/04/2024) * LAB RESULTS ORDER(Performed 12/04/2024) * LAB RESULTS ORDER(Performed 11/13/2024) * LAB RESULTS ORDER(Performed 11/13/2024) * LAB RESULTS ORDER(Performed 11/13/2024) * LAB RESULTS ORDER(Performed 10/23/2024) * LAB RESULTS ORDER(Performed 10/23/2024) * LAB RESULTS ORDER(Performed 10/23/2024) * LAB RESULTS ORDER(Performed 10/23/2024) * LAB RESULTS ORDER(Performed 10/01/2024) * LAB RESULTS ORDER(Performed 10/01/2024) * CT CRYO TISSUE ABLATION(Performed 09/18/2024) Performed for Adenocarcinoma of endometrium (HCC), Recurrent carcinoma of endometrium (HCC), Statuspost cryoablation * ENDOTRACHEAL TUBE NOTE(Performed 09/18/2024) * PT-INR [facility](Performed 09/15/2024) Performed for Pre-op evaluation * BASIC METABOLIC PANEL (CALCIUM TOTAL)(Performed 09/15/2024) Performed for Pre-op evaluation * CBC W AUTO DIFFERENTIAL(Performed 09/15/2024) Performed for Pre-op evaluation * LAB RESULTS ORDER(Performed 08/28/2024) * LAB RESULTS ORDER(Performed 08/07/2024) * LAB RESULTS ORDER(Performed 08/06/2024) * LAB RESULTS ORDER(Performed 08/06/2024) * LAB RESULTS ORDER(Performed 08/06/2024) * CT PELVIS W CONTRAST(Performed 07/23/2024) Performed for Mass of inguinal region * CREATININE - POCT INTERFACED(Performed 07/23/2024) * PET CT SKULL TO MID THIGH(Performed 07/07/2024) Performed for Adenocarcinoma of endometrium (HCC) * XR FEMUR RIGHT 2VW(Performed 06/18/2024) Performed for Closed displaced intertrochanteric fracture of right femur with routine healing, subsequent encounter * CT CHEST W CONTRAST(Performed 05/09/2024) Performed for Status post cryoablation * CREATININE - POCT INTERFACED(Performed 05/09/2024) * XR FEMUR RIGHT 2VW(Performed 03/19/2024) Performed for Closed displaced intertrochanteric fracture of right femur, initial encounter ([facility]) * XR HIP RIGHT 2VW OR MORE(Performed 03/19/2024) Performed for Closed displaced intertrochanteric fracture of right femur, initial encounter ([facility]) * CBC W/O DIFFERENTIAL(Performed 03/04/2024) Performed for Adenocarcinoma of endometrium (CMS/HCC) * BASIC METABOLIC PANEL (CALCIUM TOTAL)(Performed 03/04/2024) Performed for Adenocarcinoma of endometrium (CMS/HCC) * CT CRYO TISSUE ABLATION(Performed 03/03/2024) Performed for Adenocarcinoma of endometrium (CMS/HCC) * ENDOTRACHEAL TUBE NOTE(Performed 03/03/2024) * TYPE + SCREEN PANEL(Performed 03/03/2024) Performed for Adenocarcinoma of endometrium (CMS/HCC), Ovarian tumor, Mass of inguinal region * PT-INR [facility](Performed 03/03/2024) Performed for Adenocarcinoma of endometrium (CMS/HCC), Ovarian tumor, Mass of inguinal region * CBC W AUTO DIFFERENTIAL(Performed 03/03/2024) Performed for Adenocarcinoma of endometrium (CMS/HCC), Ovarian tumor, Mass of inguinal region * XR HIP RIGHT 2VW OR MORE(Performed 01/16/2024) Performed for Closed displaced intertrochanteric fracture of right femur, initial encounter ([facility]) * CT CHEST ABDOMEN PELVIS W CONT(Performed 01/09/2024) Performed for Recurrent carcinoma of endometrium (CMS/HCC) * MAGNESIUM BLOOD(Performed 12/28/2023) Performed for Adenocarcinoma of endometrium (HCC) * COMPREHENSIVE METABOLIC PANEL(Performed 12/28/2023) Performed for Adenocarcinoma of endometrium (HCC) * CBC W AUTO DIFFERENTIAL(Performed 12/28/2023) Performed for Adenocarcinoma of endometrium (HCC) * XR HIP RIGHT 2VW OR MORE(Performed 12/05/2023) Performed for Closed displaced intertrochanteric fracture of right femur, initial encounter ([facility]) * XR HIP RIGHT 2VW OR MORE(Performed 10/31/2023) Performed for Closed displaced intertrochanteric fracture of right femur, initial encounter ([facility]) * PREPARE RBC LEUKOREDUCED UNIT(Performed 10/15/2023) * GLUCOSE - POINT OF CARE(Performed 10/14/2023) * GLUCOSE - POINT OF CARE(Performed 10/14/2023) * GLUCOSE - POINT OF CARE(Performed 10/14/2023) * BASIC METABOLIC PANEL (CALCIUM TOTAL)(Performed 10/14/2023) * CBC W/O DIFFERENTIAL(Performed 10/14/2023) * GLUCOSE - POINT OF CARE(Performed 10/13/2023) * GLUCOSE - POINT OF CARE(Performed 10/13/2023) * HEMOGLOBIN(Performed 10/13/2023) * GLUCOSE - POINT OF CARE(Performed 10/13/2023) * TRANSFUSE RED BLOOD CELL LEUKOREDUCED UNIT(S)(Performed 10/13/2023) * PREPARE RBC LEUKOREDUCED UNIT(Performed 10/13/2023) * TYPE + SCREEN PANEL(Performed 10/13/2023) * GLUCOSE - POINT OF CARE(Performed 10/13/2023) * BASIC METABOLIC PANEL (CALCIUM TOTAL)(Performed 10/13/2023) * CBC W/O DIFFERENTIAL(Performed 10/13/2023) * GLUCOSE - POINT OF CARE(Performed 10/12/2023) * GLUCOSE - POINT OF CARE(Performed 10/12/2023) * GLUCOSE - POINT OF CARE(Performed 10/12/2023) * FERRITIN(Performed 10/12/2023) * IRON + TRANSFERRIN PANEL(Performed 10/12/2023) * BASIC METABOLIC PANEL (CALCIUM TOTAL)(Performed 10/12/2023) * CBC W/O DIFFERENTIAL(Performed 10/12/2023) * GLUCOSE - POINT OF CARE(Performed 10/11/2023) * GLUCOSE - POINT OF CARE(Performed 10/11/2023) * GLUCOSE - POINT OF CARE(Performed 10/11/2023) * GLUCOSE - POINT OF CARE(Performed 10/11/2023) * BASIC METABOLIC PANEL (CALCIUM TOTAL)(Performed 10/11/2023) * CBC W/O DIFFERENTIAL(Performed 10/11/2023) * GLUCOSE - POINT OF CARE(Performed 10/11/2023) * GLUCOSE - POINT OF CARE(Performed 10/10/2023) * GLUCOSE - POINT OF CARE(Performed 10/10/2023) * BASIC METABOLIC PANEL (CALCIUM TOTAL)(Performed 10/10/2023) * CBC W/O DIFFERENTIAL(Performed 10/10/2023) * MAGNESIUM BLOOD(Performed 10/10/2023) * GLUCOSE - POINT OF CARE(Performed 10/09/2023) * FL JOO SURGERY(Performed 10/09/2023) Performed for Closed displaced intertrochanteric fracture of right femur, initial encounter ([facility]) * PATHOLOGY TISSUE(Performed 10/09/2023) Performed for Closed displaced intertrochanteric fracture of right femur, initial encounter ([facility]) * PERIPHERAL IV NOTE(Performed 10/09/2023) * ENDOTRACHEAL TUBE NOTE(Performed 10/09/2023) * WY OPEN RX FEMUR FX+INTRAMED DIYA(Performed 10/09/2023) Performed for Closed displaced intertrochanteric fracture of right femur, initial encounter ([facility]) * BASIC METABOLIC PANEL (CALCIUM TOTAL)(Performed 10/09/2023) Performed for Closed displaced intertrochanteric fracture of right femur, initial encounter ([facility]), Adenocarcinoma of endometrium ([facility]), Ovarian tumor, Post-operative wound abscess * GLUCOSE - POINT OF CARE(Performed 10/09/2023) * CT HIP RIGHT WO CONTRAST(Performed 10/09/2023) Performed for Closed displaced intertrochanteric fracture of right femur, initial encounter ([facility]) * BASIC METABOLIC PANEL (CALCIUM TOTAL)(Performed 10/09/2023) * CBC W/O DIFFERENTIAL(Performed 10/09/2023) * HEMOGLOBIN A1C(Performed 10/09/2023) * VITAMIN D 25-HYDROXY(Performed 10/09/2023) * GLUCOSE - POINT OF CARE(Performed 10/09/2023) * EKG 12-LEAD(Performed 10/08/2023) Performed for Right hip pain * XR FEMUR RIGHT 2VW(Performed 10/08/2023) Performed for Right hip pain * XR STRESS ANY JOINT(Performed 10/08/2023) Performed for Right hip pain * XR PELVIS W RIGHT HIP 2VW(Performed 10/08/2023) Performed for Right hip pain * TYPE + SCREEN PANEL(Performed 10/08/2023) * PTT(Performed 10/08/2023) * PT-INR(Performed 10/08/2023) * CBC W AUTO DIFFERENTIAL(Performed 10/08/2023) * BASIC METABOLIC PANEL (CALCIUM TOTAL)(Performed 10/08/2023) * WY SPLIT GRFT,TRUNK,ARM,LEG <100SQCM(Performed 09/14/2023) Performed for Mass of inguinal region * LARYNGEAL MASK AIRWAY(Performed 09/14/2023) * TYPE + SCREEN PANEL(Performed 09/12/2023) Performed for Pre-op testing * CBC W AUTO DIFFERENTIAL(Performed 09/12/2023) Performed for Pre-op testing * MAGNESIUM BLOOD(Performed 09/12/2023) Performed for Pre-op testing * COMPREHENSIVE METABOLIC PANEL(Performed 09/12/2023) Performed for Pre-op testing * CARDIAC RHYTHM STRIP ORDER(Performed 08/23/2023) * APHERESIS/TRANSFUSION ORDER(Performed 08/23/2023) * MAGNESIUM BLOOD(Performed 08/18/2023) Performed for Post-operative wound abscess * RENAL FUNCTION PANEL(Performed 08/18/2023) Performed for Post-operative wound abscess * CBC W/O DIFFERENTIAL(Performed 08/18/2023) Performed for Post-operative wound abscess * MAGNESIUM BLOOD(Performed 08/17/2023) Performed for Post-operative wound abscess * RENAL FUNCTION PANEL(Performed 08/17/2023) Performed for Post-operative wound abscess * CBC W/O DIFFERENTIAL(Performed 08/17/2023) Performed for Post-operative wound abscess * MAGNESIUM BLOOD(Performed 08/16/2023) Performed for Post-operative wound abscess * RENAL FUNCTION PANEL(Performed 08/16/2023) Performed for Post-operative wound abscess * CBC W/O DIFFERENTIAL(Performed 08/16/2023) Performed for Post-operative wound abscess * MAGNESIUM BLOOD(Performed 08/15/2023) Performed for Post-operative wound abscess * RENAL FUNCTION PANEL(Performed 08/15/2023) Performed for Post-operative wound abscess * CBC W/O DIFFERENTIAL(Performed 08/15/2023) Performed for Post-operative wound abscess * MAGNESIUM BLOOD(Performed 08/14/2023) Performed for Post-operative wound abscess * RENAL FUNCTION PANEL(Performed 08/14/2023) Performed for Post-operative wound abscess * CBC W/O DIFFERENTIAL(Performed 08/14/2023) Performed for Post-operative wound abscess * PREPARE RBC LEUKOREDUCED UNIT(Performed 08/14/2023) Performed for Wound dehiscence * MAGNESIUM BLOOD(Performed 08/13/2023) Performed for Post-operative wound abscess * RENAL FUNCTION PANEL(Performed 08/13/2023) Performed for Post-operative wound abscess * CBC W/O DIFFERENTIAL(Performed 08/13/2023) Performed for Post-operative wound abscess * TRANSFUSE RED BLOOD CELL LEUKOREDUCED UNIT(S)(Performed 08/12/2023) * MAGNESIUM BLOOD(Performed 08/12/2023) Performed for Post-operative wound abscess * CBC W/O DIFFERENTIAL(Performed 08/12/2023) Performed for Post-operative wound abscess * PREPARE FFP UNIT(S)(Performed 08/11/2023) Performed for Mass of inguinal region * MAGNESIUM BLOOD(Performed 08/11/2023) * RENAL FUNCTION PANEL(Performed 08/11/2023) * RENAL FUNCTION PANEL(Performed 08/11/2023) Performed for Post-operative wound abscess * PREPARE RBC LEUKOREDUCED UNIT(Performed 08/11/2023) Performed for Mass of inguinal region * CREATININE URINE RANDOM(Performed 08/11/2023) * SODIUM URINE RANDOM(Performed 08/11/2023) * CBC W/O DIFFERENTIAL(Performed 08/11/2023) Performed for Post-operative wound abscess * MAGNESIUM BLOOD(Performed 08/11/2023) Performed for Post-operative wound abscess * RENAL FUNCTION PANEL(Performed 08/11/2023) Performed for Post-operative wound abscess * OT EVAL AND TREAT(Performed 08/10/2023) * GLUCOSE - POINT OF CARE(Performed 08/10/2023) * ARTERIAL LINE NOTE(Performed 08/10/2023) * PATHOLOGY TISSUE EXAM (STL)(Performed 08/10/2023) Performed for Diagnosis unknown * ENDOTRACHEAL TUBE NOTE(Performed 08/10/2023) * WY EXC SKIN & SUBQ TISSUE ABD PANNICULECTOMY(Performed 08/10/2023) Performed for Diagnosis unknown * WY VEIN BYPASS GRAFT,FEM-TIBIAL(Performed 08/10/2023) Performed for Diagnosis unknown * WY REMOVE GROIN LYMPH NODES(Performed 08/10/2023) Performed for Diagnosis unknown * TYPE + SCREEN PANEL(Performed 08/10/2023) Performed for Wound dehiscence * CBC W AUTO DIFFERENTIAL(Performed 08/10/2023) Performed for Wound dehiscence * GLUCOSE - POINT OF CARE(Performed 08/10/2023) * PATHOLOGY/CYTOLOGY REPORT ORDER(Performed 08/10/2023) * TYPE + SCREEN PANEL(Performed 08/09/2023) Performed for Preop examination * COMPREHENSIVE METABOLIC PANEL(Performed 08/09/2023) Performed for Preop examination * CBC W AUTO DIFFERENTIAL(Performed 08/09/2023) Performed for Preop examination * MAGNESIUM BLOOD(Performed 07/30/2023) Performed for Adenocarcinoma of endometrium (HCC) * COMPREHENSIVE METABOLIC PANEL(Performed 07/30/2023) Performed for Adenocarcinoma of endometrium (HCC) * CBC W AUTO DIFFERENTIAL(Performed 07/30/2023) Performed for Adenocarcinoma of endometrium (HCC) * CANCER ANTIGEN (CA)125 BLOOD(Performed 07/24/2023) Performed for Ovarian tumor, Malignant neoplasm of endometrium (HCC) * CT ABDOMEN PELVIS W CONTRAST(Performed 07/09/2023) Performed for Post-operative wound abscess * CANCER ANTIGEN (CA)125 BLOOD(Performed 07/06/2023) * CBC W AUTO DIFFERENTIAL(Performed 07/06/2023) 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) * COMPREHENSIVE METABOLIC PANEL(Performed 07/06/2023) 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) * MAGNESIUM BLOOD(Performed 06/18/2023) 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) * CBC W AUTO DIFFERENTIAL(Performed 06/18/2023) 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) * COMPREHENSIVE METABOLIC PANEL(Performed 06/18/2023) 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) * MAGNESIUM BLOOD(Performed 05/25/2023) 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) * CBC W AUTO DIFFERENTIAL(Performed 05/25/2023) 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) * COMPREHENSIVE METABOLIC PANEL(Performed 05/25/2023) 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) * MAGNESIUM BLOOD(Performed 05/03/2023) Performed for Post-operative wound abscess * RENAL FUNCTION PANEL(Performed 05/03/2023) Performed for Post-operative wound abscess * CBC W AUTO DIFFERENTIAL(Performed 05/03/2023) Performed for Post-operative wound abscess * MAGNESIUM BLOOD(Performed 05/02/2023) Performed for Post-operative wound abscess * RENAL FUNCTION PANEL(Performed 05/02/2023) Performed for Post-operative wound abscess * CBC W AUTO DIFFERENTIAL(Performed 05/02/2023) Performed for Post-operative wound abscess * MAGNESIUM BLOOD(Performed 05/01/2023) Performed for Post-operative wound abscess * RENAL FUNCTION PANEL(Performed 05/01/2023) Performed for Post-operative wound abscess * CBC W AUTO DIFFERENTIAL(Performed 05/01/2023) Performed for Post-operative wound abscess * MAGNESIUM BLOOD(Performed 04/30/2023) Performed for Post-operative wound abscess * RENAL FUNCTION PANEL(Performed 04/30/2023) Performed for Post-operative wound abscess * CBC W AUTO DIFFERENTIAL(Performed 04/30/2023) Performed for Post-operative wound abscess * CULTURE BLOOD(Performed 04/29/2023) * CULTURE BLOOD(Performed 04/29/2023) * MAGNESIUM BLOOD(Performed 04/29/2023) Performed for Post-operative wound abscess * RENAL FUNCTION PANEL(Performed 04/29/2023) Performed for Post-operative wound abscess * CBC W AUTO DIFFERENTIAL(Performed 04/29/2023) Performed for Post-operative wound abscess * MAGNESIUM BLOOD(Performed 04/28/2023) Performed for Post-operative wound abscess * RENAL FUNCTION PANEL(Performed 04/28/2023) Performed for Post-operative wound abscess * CBC W AUTO DIFFERENTIAL(Performed 04/28/2023) Performed for Post-operative wound abscess * MAGNESIUM BLOOD(Performed 04/27/2023) Performed for Post-operative wound abscess * RENAL FUNCTION PANEL(Performed 04/27/2023) Performed for Post-operative wound abscess * CBC W AUTO DIFFERENTIAL(Performed 04/27/2023) Performed for Post-operative wound abscess * CULTURE WOUND+GRAM STAIN(Performed 04/26/2023) * CT ABDOMEN PELVIS W CONTRAST(Performed 04/25/2023) Performed for Post-operative wound abscess * LACTIC ACID BLOOD REFLEX TO REPEAT(Performed 04/25/2023) * COMPREHENSIVE METABOLIC PANEL(Performed 04/25/2023) * CBC W AUTO DIFFERENTIAL(Performed 04/25/2023) * CANCER ANTIGEN (CA)125 BLOOD(Performed 04/23/2023) Performed for Adenocarcinoma of endometrium (HCC), Ovarian tumor * MAGNESIUM BLOOD(Performed 04/11/2023) 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) * CBC W AUTO DIFFERENTIAL(Performed 04/11/2023) 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) * COMPREHENSIVE METABOLIC PANEL(Performed 04/11/2023) 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) * MAGNESIUM BLOOD(Performed 03/28/2023) 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) * CBC W AUTO DIFFERENTIAL(Performed 03/28/2023) 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) * COMPREHENSIVE METABOLIC PANEL(Performed 03/28/2023) 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) * MAGNESIUM BLOOD(Performed 03/14/2023) 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) * CBC W AUTO DIFFERENTIAL(Performed 03/14/2023) 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) * COMPREHENSIVE METABOLIC PANEL(Performed 03/14/2023) 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) * CANCER ANTIGEN (CA)125 BLOOD(Performed 03/14/2023) 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) * MAGNESIUM BLOOD(Performed 02/28/2023) 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) * CBC W AUTO DIFFERENTIAL(Performed 02/28/2023) 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) * COMPREHENSIVE METABOLIC PANEL(Performed 02/28/2023) 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) * MAGNESIUM BLOOD(Performed 02/16/2023) 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) * CBC W AUTO DIFFERENTIAL(Performed 02/16/2023) 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) * COMPREHENSIVE METABOLIC PANEL(Performed 02/16/2023) 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) * CANCER ANTIGEN (CA)125 BLOOD(Performed 02/16/2023) 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) * CULTURE WOUND+GRAM STAIN(Performed 02/09/2023) Performed for Wound dehiscence * CT ABDOMEN PELVIS W CONTRAST(Performed 02/09/2023) Performed for Abdominal pain, right lower quadrant, Wound dehiscence * COMPREHENSIVE METABOLIC PANEL(Performed 02/08/2023) * CBC W AUTO DIFFERENTIAL(Performed 02/08/2023) * MAGNESIUM BLOOD(Performed 01/31/2023) 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) * CBC W AUTO DIFFERENTIAL(Performed 01/31/2023) 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) * COMPREHENSIVE METABOLIC PANEL(Performed 01/31/2023) 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) * CANCER ANTIGEN (CA)125 BLOOD(Performed 01/23/2023) Performed for Adenocarcinoma of endometrium (HCC), Ovarian tumor * OPH OCT TEST SLU(Performed 01/12/2023) Performed for Glaucoma suspect of both eyes * CANCER ANTIGEN (CA)125 BLOOD(Performed 01/10/2023) Performed for Adenocarcinoma of endometrium (HCC) * MAGNESIUM BLOOD(Performed 01/10/2023) Performed for Adenocarcinoma of endometrium (HCC) * COMPREHENSIVE METABOLIC PANEL(Performed 01/10/2023) Performed for Adenocarcinoma of endometrium (HCC) * CBC W AUTO DIFFERENTIAL(Performed 01/10/2023) Performed for Adenocarcinoma of endometrium (HCC) * CARDIAC RHYTHM STRIP ORDER(Performed 01/05/2023) * PATHOLOGY TISSUE EXAM (STL)(Performed 01/02/2023) Performed for Diagnosis unknown * CULTURE WOUND+GRAM STAIN(Performed 01/02/2023) Performed for Diagnosis unknown * CULTURE ANAEROBE(Performed 01/02/2023) Performed for Diagnosis unknown * LARYNGEAL MASK AIRWAY(Performed 01/02/2023) * DISSECTION NODE / LYMPHADENECTOMY PELVIC(Performed 01/02/2023) Performed for Diagnosis unknown * MAGNESIUM BLOOD(Performed 12/27/2022) 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) * CBC W AUTO DIFFERENTIAL(Performed 12/27/2022) 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) * COMPREHENSIVE METABOLIC PANEL(Performed 12/27/2022) 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) * CT CHEST ABDOMEN PELVIS W CONT(Performed 12/19/2022) Performed for Adenocarcinoma of endometrium (HCC), Recurrent carcinoma of endometrium (HCC) * CANCER ANTIGEN (CA)125 BLOOD(Performed 12/15/2022) Performed for Adenocarcinoma of endometrium (HCC) * MAGNESIUM BLOOD(Performed 12/15/2022) Performed for Adenocarcinoma of endometrium (HCC) * COMPREHENSIVE METABOLIC PANEL(Performed 12/15/2022) Performed for Adenocarcinoma of endometrium (HCC) * CBC W AUTO DIFFERENTIAL(Performed 12/15/2022) Performed for Adenocarcinoma of endometrium (HCC) * EXTRACTION CATARACT WITH INSERTION LENS(Performed 12/05/2022) Performed for Combined forms of age-related cataract of both eyes * GLUCOSE - POINT OF CARE(Performed 12/05/2022) * EXTRACTION CATARACT WITH INSERTION LENS(Performed 11/21/2022) Performed for Combined forms of age-related cataract of both eyes * CANCER ANTIGEN (CA)125 BLOOD(Performed 11/16/2022) Performed for Adenocarcinoma of endometrium (HCC) * MAGNESIUM BLOOD(Performed 11/16/2022) Performed for Adenocarcinoma of endometrium (HCC) * COMPREHENSIVE METABOLIC PANEL(Performed 11/16/2022) Performed for Adenocarcinoma of endometrium (HCC) * CBC W AUTO DIFFERENTIAL(Performed 11/16/2022) Performed for Adenocarcinoma of endometrium (HCC) * MAGNESIUM BLOOD(Performed 11/01/2022) 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) * CBC W AUTO DIFFERENTIAL(Performed 11/01/2022) 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) * COMPREHENSIVE METABOLIC PANEL(Performed 11/01/2022) 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) * CANCER ANTIGEN (CA)125 BLOOD(Performed 10/25/2022) Performed for Adenocarcinoma of endometrium (HCC), Ovarian tumor * CANCER ANTIGEN (CA)125 BLOOD(Performed 10/18/2022) Performed for Adenocarcinoma of endometrium (HCC) * MAGNESIUM BLOOD(Performed 10/18/2022) Performed for Adenocarcinoma of endometrium (HCC) * COMPREHENSIVE METABOLIC PANEL(Performed 10/18/2022) Performed for Adenocarcinoma of endometrium (HCC) * CBC W AUTO DIFFERENTIAL(Performed 10/18/2022) Performed for Adenocarcinoma of endometrium (HCC) * US LYMPH NODE BIOPSY(Performed 10/09/2022) 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), Mass of inguinal region * PATHOLOGY TISSUE EXAM (STL)(Performed 10/09/2022) 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), Mass of inguinal region * CULTURE FUNGUS OTHER+FUNGUS SMEAR(Performed 10/09/2022) Performed for Mass of inguinal region * CYTOLOGY NON-SAFETY AND SECURITY MANAGER PANEL (STL)(Performed 10/09/2022) Performed for Malignant neoplasm of ovary, unspecified laterality (HCC) * CULTURE FLUID+GRAM STAIN(Performed 10/09/2022) Performed for Malignant neoplasm of ovary, unspecified laterality (HCC) * FINE NEEDLE ASPIRATION (STL)(Performed 10/09/2022) 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) * PT-INR(Performed 10/09/2022) Performed for Malignant neoplasm of ovary, unspecified laterality (HCC) * PET CT SKULL TO MID THIGH(Performed 09/29/2022) 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), Cancer antigen 125 (CA 125) elevation * MAGNESIUM BLOOD(Performed 09/27/2022) 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) * CBC W AUTO DIFFERENTIAL(Performed 09/27/2022) 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) * COMPREHENSIVE METABOLIC PANEL(Performed 09/27/2022) 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) * OPH CORNEAL TOPOGRAPHY TEST [facility]U(Performed 09/20/2022) Performed for Combined forms of age-related cataract of both eyes * OPH IOL TEST [facility]U(Performed 09/20/2022) Performed for Combined forms of age-related cataract of both eyes * CANCER ANTIGEN (CA)125 BLOOD(Performed 09/13/2022) Performed for Adenocarcinoma of endometrium (HCC) * MAGNESIUM BLOOD(Performed 09/13/2022) Performed for Adenocarcinoma of endometrium (HCC) * COMPREHENSIVE METABOLIC PANEL(Performed 09/13/2022) Performed for Adenocarcinoma of endometrium (HCC) * CBC W AUTO DIFFERENTIAL(Performed 09/13/2022) Performed for Adenocarcinoma of endometrium (HCC) * MAGNESIUM BLOOD(Performed 08/30/2022) 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) * CBC W AUTO DIFFERENTIAL(Performed 08/30/2022) 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) * COMPREHENSIVE METABOLIC PANEL(Performed 08/30/2022) 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) * CT CHEST ABDOMEN PELVIS W CONT(Performed 08/22/2022) Performed for Ovarian tumor, Adenocarcinoma of endometrium (HCC) * CANCER ANTIGEN (CA)125 BLOOD(Performed 08/16/2022) Performed for Adenocarcinoma of endometrium (HCC) * MAGNESIUM BLOOD(Performed 08/16/2022) Performed for Adenocarcinoma of endometrium (HCC) * COMPREHENSIVE METABOLIC PANEL(Performed 08/16/2022) Performed for Adenocarcinoma of endometrium (HCC) * CBC W AUTO DIFFERENTIAL(Performed 08/16/2022) Performed for Adenocarcinoma of endometrium (HCC) * MAGNESIUM BLOOD(Performed 07/31/2022) 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) * CBC W AUTO DIFFERENTIAL(Performed 07/31/2022) 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) * COMPREHENSIVE METABOLIC PANEL(Performed 07/31/2022) 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) * CANCER ANTIGEN (CA)125 BLOOD(Performed 07/26/2022) Performed for Adenocarcinoma of endometrium (HCC), Ovarian tumor * MAGNESIUM BLOOD(Performed 07/18/2022) 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) * CBC W AUTO DIFFERENTIAL(Performed 07/18/2022) 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) * COMPREHENSIVE METABOLIC PANEL(Performed 07/18/2022) 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) * CANCER ANTIGEN (CA)125 BLOOD(Performed 07/18/2022) 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) * MAGNESIUM BLOOD(Performed 07/06/2022) 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) * CBC W AUTO DIFFERENTIAL(Performed 07/06/2022) 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) * COMPREHENSIVE METABOLIC PANEL(Performed 07/06/2022) 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) * CANCER ANTIGEN (CA)125 BLOOD(Performed 06/21/2022) Performed for Adenocarcinoma of endometrium (HCC) * MAGNESIUM BLOOD(Performed 06/21/2022) Performed for Adenocarcinoma of endometrium (HCC) * COMPREHENSIVE METABOLIC PANEL(Performed 06/21/2022) Performed for Adenocarcinoma of endometrium (HCC) * CBC W AUTO DIFFERENTIAL(Performed 06/21/2022) Performed for Adenocarcinoma of endometrium (HCC) * MAGNESIUM BLOOD(Performed 06/07/2022) 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) * CBC W AUTO DIFFERENTIAL(Performed 06/07/2022) 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) * COMPREHENSIVE METABOLIC PANEL(Performed 06/07/2022) 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) * CANCER ANTIGEN (CA)125 BLOOD(Performed 05/24/2022) Performed for Adenocarcinoma of endometrium (HCC) * MAGNESIUM BLOOD(Performed 05/24/2022) Performed for Adenocarcinoma of endometrium (HCC) * COMPREHENSIVE METABOLIC PANEL(Performed 05/24/2022) Performed for Adenocarcinoma of endometrium (HCC) * CBC W AUTO DIFFERENTIAL(Performed 05/24/2022) Performed for Adenocarcinoma of endometrium (HCC) * MAGNESIUM BLOOD(Performed 05/10/2022) 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) * CBC W AUTO DIFFERENTIAL(Performed 05/10/2022) 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) * COMPREHENSIVE METABOLIC PANEL(Performed 05/10/2022) 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) * CANCER ANTIGEN (CA)125 BLOOD(Performed 04/26/2022) Performed for Adenocarcinoma of endometrium (HCC) * MAGNESIUM BLOOD(Performed 04/26/2022) Performed for Adenocarcinoma of endometrium (HCC) * COMPREHENSIVE METABOLIC PANEL(Performed 04/26/2022) Performed for Adenocarcinoma of endometrium (HCC) * CBC W AUTO DIFFERENTIAL(Performed 04/26/2022) Performed for Adenocarcinoma of endometrium (HCC) * CANCER ANTIGEN (CA)125 BLOOD(Performed 04/25/2022) Performed for Adenocarcinoma of endometrium (HCC), Ovarian tumor * REF LAB-SPECIMEN STATUS REPORT(Performed 04/12/2022) * MAGNESIUM BLOOD(Performed 04/12/2022) 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) * CBC W AUTO DIFFERENTIAL(Performed 04/12/2022) 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) * COMPREHENSIVE METABOLIC PANEL(Performed 04/12/2022) 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) * MAGNESIUM BLOOD(Performed 03/29/2022) 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) * CBC W AUTO DIFFERENTIAL(Performed 03/29/2022) 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) * COMPREHENSIVE METABOLIC PANEL(Performed 03/29/2022) 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) * CANCER ANTIGEN (CA)125 BLOOD(Performed 03/29/2022) 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) * MAGNESIUM BLOOD(Performed 03/15/2022) 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) * CBC W AUTO DIFFERENTIAL(Performed 03/15/2022) 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) * COMPREHENSIVE METABOLIC PANEL(Performed 03/15/2022) 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) * CANCER ANTIGEN (CA)125 BLOOD(Performed 03/15/2022) 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) * CANCER ANTIGEN (CA)125 BLOOD(Performed 03/02/2022) Performed for Adenocarcinoma of endometrium (HCC) * MAGNESIUM BLOOD(Performed 03/02/2022) Performed for Adenocarcinoma of endometrium (HCC) * COMPREHENSIVE METABOLIC PANEL(Performed 03/02/2022) Performed for Adenocarcinoma of endometrium (HCC) * CBC W AUTO DIFFERENTIAL(Performed 03/02/2022) Performed for Adenocarcinoma of endometrium (HCC) * CANCER ANTIGEN (CA)125 BLOOD(Performed 02/16/2022) Performed for Adenocarcinoma of endometrium (HCC) * MAGNESIUM BLOOD(Performed 02/16/2022) Performed for Adenocarcinoma of endometrium (HCC) * COMPREHENSIVE METABOLIC PANEL(Performed 02/16/2022) Performed for Adenocarcinoma of endometrium (HCC) * CBC W AUTO DIFFERENTIAL(Performed 02/16/2022) Performed for Adenocarcinoma of endometrium (HCC) * MAGNESIUM BLOOD(Performed 02/03/2022) 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) * CBC W AUTO DIFFERENTIAL(Performed 02/03/2022) 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) * COMPREHENSIVE METABOLIC PANEL(Performed 02/03/2022) 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) * CANCER ANTIGEN (CA)125 BLOOD(Performed 01/31/2022) Performed for Adenocarcinoma of endometrium (HCC), Ovarian tumor * PET CT SKULL TO MID THIGH(Performed 01/27/2022) 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) * MAGNESIUM BLOOD(Performed 01/20/2022) 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) * CBC W AUTO DIFFERENTIAL(Performed 01/20/2022) 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) * COMPREHENSIVE METABOLIC PANEL(Performed 01/20/2022) 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) * CANCER ANTIGEN (CA)125 BLOOD(Performed 01/20/2022) 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) * CANCER ANTIGEN (CA)125 BLOOD(Performed 01/06/2022) Performed for Adenocarcinoma of endometrium (HCC) * MAGNESIUM BLOOD(Performed 01/06/2022) Performed for Adenocarcinoma of endometrium (HCC) * COMPREHENSIVE METABOLIC PANEL(Performed 01/06/2022) Performed for Adenocarcinoma of endometrium (HCC) * CBC W AUTO DIFFERENTIAL(Performed 01/06/2022) Performed for Adenocarcinoma of endometrium (HCC) * MAGNESIUM BLOOD(Performed 12/20/2021) 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) * CBC W AUTO DIFFERENTIAL(Performed 12/20/2021) 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) * COMPREHENSIVE METABOLIC PANEL(Performed 12/20/2021) 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) * MAGNESIUM BLOOD(Performed 12/07/2021) 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) * CBC W AUTO DIFFERENTIAL(Performed 12/07/2021) 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) * COMPREHENSIVE METABOLIC PANEL(Performed 12/07/2021) 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) * CANCER ANTIGEN (CA)125 BLOOD(Performed 12/07/2021) 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) * MAGNESIUM BLOOD(Performed 11/23/2021) 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) * CBC W AUTO DIFFERENTIAL(Performed 11/23/2021) 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) * COMPREHENSIVE METABOLIC PANEL(Performed 11/23/2021) 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) * CANCER ANTIGEN (CA)125 BLOOD(Performed 11/23/2021) 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) * MAGNESIUM BLOOD(Performed 11/09/2021) 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) * CBC W AUTO DIFFERENTIAL(Performed 11/09/2021) 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) * COMPREHENSIVE METABOLIC PANEL(Performed 11/09/2021) 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) * CANCER ANTIGEN (CA)125 BLOOD(Performed 11/02/2021) Performed for Adenocarcinoma of endometrium (HCC), Ovarian tumor * CANCER ANTIGEN (CA)125 BLOOD(Performed 10/26/2021) * CANCER ANTIGEN (CA)125 BLOOD(Performed 10/12/2021) 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) * MAGNESIUM BLOOD(Performed 09/28/2021) 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) * CBC W AUTO DIFFERENTIAL(Performed 09/28/2021) 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) * COMPREHENSIVE METABOLIC PANEL(Performed 09/28/2021) 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) * CANCER ANTIGEN (CA)125 BLOOD(Performed 09/28/2021) 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) * MAGNESIUM BLOOD(Performed 09/28/2021) 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) * CBC W AUTO DIFFERENTIAL(Performed 09/28/2021) 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) * CANCER ANTIGEN (CA)125 BLOOD(Performed 09/07/2021) 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) * MAGNESIUM BLOOD(Performed 09/07/2021) 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) * CBC W AUTO DIFFERENTIAL(Performed 09/07/2021) 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) * COMPREHENSIVE METABOLIC PANEL(Performed 09/07/2021) 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) * MAGNESIUM BLOOD(Performed 08/24/2021) 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) * CBC W AUTO DIFFERENTIAL(Performed 08/24/2021) 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) * COMPREHENSIVE METABOLIC PANEL(Performed 08/24/2021) 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) * MAGNESIUM BLOOD(Performed 08/10/2021) 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) * COMPREHENSIVE METABOLIC PANEL(Performed 08/10/2021) 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) * CBC W AUTO DIFFERENTIAL(Performed 08/10/2021) 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) * CANCER ANTIGEN (CA)125 BLOOD(Performed 08/10/2021) Performed for Adenocarcinoma of endometrium (HCC), Ovarian tumor * PATHOLOGY TISSUE EXAM (STL)(Performed 07/27/2021) Performed for Endometrial cancer (HCC) * CT BONE BIOPSY(Performed 07/27/2021) Performed for Endometrial cancer (HCC) * PTT(Performed 07/27/2021) Performed for Bone mass, Endometrial cancer (HCC) * PT-INR(Performed 07/27/2021) Performed for Bone mass, Endometrial cancer (HCC) * CBC W AUTO DIFFERENTIAL(Performed 07/27/2021) Performed for Endometrial cancer (HCC), Bone mass * PET CT SKULL TO MID THIGH(Performed 07/19/2021) Performed for Adenocarcinoma of endometrium (HCC), Ovarian tumor * CANCER ANTIGEN (CA)125 BLOOD(Performed 06/09/2021) 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), Ovarian tumor * CT NECK SOFT TISSUE W CONT(Performed 06/07/2021) Performed for Adenocarcinoma of endometrium (HCC) * CREATININE BLOOD - POINT OF CARE (IP)(Performed 06/07/2021) Performed for Adenocarcinoma of endometrium (HCC) * CANCER ANTIGEN (CA)125 BLOOD(Performed 05/18/2021) Performed for Adenocarcinoma of endometrium (HCC), Ovarian tumor * PET CT SKULL TO MID THIGH(Performed 04/22/2021) 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) * TSH HI LOW REFLEX FREE T4(Performed 03/15/2021) Performed for Fatigue, unspecified type, Cancer (HCC) * CBC W AUTO DIFFERENTIAL(Performed 03/15/2021) Performed for Fatigue, unspecified type, Cancer (HCC) * CANCER ANTIGEN (CA)125 BLOOD(Performed 02/17/2021) Performed for Adenocarcinoma of endometrium (HCC), Ovarian tumor * CANCER ANTIGEN (CA)125 BLOOD(Performed 11/25/2020) Performed for Adenocarcinoma of endometrium (HCC), Ovarian tumor * CARDIAC RHYTHM STRIP ORDER(Performed 11/22/2020) * PATHOLOGY TISSUE EXAM (STL)(Performed 11/16/2020) Performed for Diagnosis unknown * LARYNGEAL MASK AIRWAY(Performed 11/16/2020) * DISSECTION NODE / LYMPHADENECTOMY PELVIC(Performed 11/16/2020) Performed for Diagnosis unknown * BLOOD TYPE VERIFICATION(Performed 11/15/2020) Performed for Endometrial cancer (HCC) * TYPE + SCREEN PANEL(Performed 11/15/2020) Performed for Endometrial cancer (HCC) * CBC W AUTO DIFFERENTIAL(Performed 11/15/2020) Performed for Endometrial cancer (HCC) * COMPREHENSIVE METABOLIC PANEL(Performed 11/15/2020) Performed for Endometrial cancer (HCC) * SARS-COV-2 (COVID-19) IN HOUSE(Performed 11/15/2020) Performed for Endometrial cancer (HCC) * PET CT SKULL TO MID THIGH(Performed 10/19/2020) 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), Malignant neoplasm of ovary, unspecified laterality (HCC) * CANCER ANTIGEN (CA)125 BLOOD(Performed 08/26/2020) Performed for Adenocarcinoma of endometrium (HCC), Ovarian tumor * PET CT SKULL TO MID THIGH(Performed 07/16/2020) 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), Status post chemotherapy * LAB RESULTS ORDER(Performed 06/22/2020) * MAGNESIUM BLOOD(Performed 06/21/2020) * CANCER ANTIGEN (CA)125 BLOOD(Performed 06/21/2020) * COMPREHENSIVE METABOLIC PANEL(Performed 06/21/2020) * CBC W AUTO DIFFERENTIAL(Performed 06/21/2020) * LAB RESULTS ORDER(Performed 06/15/2020) * CBC W AUTO DIFFERENTIAL(Performed 06/14/2020) * LAB RESULTS ORDER(Performed 06/09/2020) * CBC W AUTO DIFFERENTIAL(Performed 06/08/2020) * LAB RESULTS ORDER(Performed 06/07/2020) * LAB RESULTS ORDER(Performed 06/02/2020) * MAGNESIUM BLOOD(Performed 06/01/2020) * CANCER ANTIGEN (CA)125 BLOOD(Performed 06/01/2020) * COMPREHENSIVE METABOLIC PANEL(Performed 06/01/2020) * CBC W AUTO DIFFERENTIAL(Performed 06/01/2020) * LAB RESULTS ORDER(Performed 05/26/2020) * CBC W AUTO DIFFERENTIAL(Performed 05/25/2020) * CBC W AUTO DIFFERENTIAL(Performed 05/18/2020) * LAB RESULTS ORDER(Performed 05/17/2020) * LAB RESULTS ORDER(Performed 05/12/2020) * MAGNESIUM BLOOD(Performed 05/11/2020) * CANCER ANTIGEN (CA)125 BLOOD(Performed 05/11/2020) * COMPREHENSIVE METABOLIC PANEL(Performed 05/11/2020) * CBC W AUTO DIFFERENTIAL(Performed 05/11/2020) * LAB RESULTS ORDER(Performed 05/05/2020) * CBC W AUTO DIFFERENTIAL(Performed 05/04/2020) * LAB RESULTS ORDER(Performed 04/28/2020) * CBC W AUTO DIFFERENTIAL(Performed 04/27/2020) * LAB RESULTS ORDER(Performed 04/21/2020) * MAGNESIUM BLOOD(Performed 04/20/2020) * CANCER ANTIGEN (CA)125 BLOOD(Performed 04/20/2020) * COMPREHENSIVE METABOLIC PANEL(Performed 04/20/2020) * CBC W AUTO DIFFERENTIAL(Performed 04/20/2020) * CBC W AUTO DIFFERENTIAL(Performed 04/13/2020) * CBC W AUTO DIFFERENTIAL(Performed 04/06/2020) * CANCER ANTIGEN (CA)125 BLOOD(Performed 04/01/2020) Performed for Adenocarcinoma of endometrium (HCC) * MAGNESIUM BLOOD(Performed 03/30/2020) * COMPREHENSIVE METABOLIC PANEL(Performed 03/30/2020) * CBC W AUTO DIFFERENTIAL(Performed 03/30/2020) * CBC W AUTO DIFFERENTIAL(Performed 03/23/2020) * CBC W AUTO DIFFERENTIAL(Performed 03/16/2020) * MAGNESIUM BLOOD(Performed 03/09/2020) * COMPREHENSIVE METABOLIC PANEL(Performed 03/09/2020) * CBC W AUTO DIFFERENTIAL(Performed 03/09/2020) * CBC W AUTO DIFFERENTIAL(Performed 03/02/2020) * MAGNESIUM BLOOD(Performed 02/18/2020) * COMPREHENSIVE METABOLIC PANEL(Performed 02/18/2020) * CBC W AUTO DIFFERENTIAL(Performed 02/18/2020) * CANCER ANTIGEN (CA)125 BLOOD(Performed 02/18/2020) Performed for Adenocarcinoma of endometrium (HCC), Ovarian tumor * PET CT SKULL TO MID THIGH(Performed 02/10/2020) Performed for Malignant neoplasm of overlapping sites of female genital organs , Malignant neoplasmof ovary, unspecified laterality (HCC) * PATHOLOGY TISSUE EXAM (STL)(Performed 02/04/2020) Performed for Adenocarcinoma of endometrium (HCC), Ovarian tumor * US LYMPH NODE BIOPSY(Performed 02/04/2020) Performed for Adenocarcinoma of endometrium (HCC) * US PELVIS LIMITED(Performed 02/04/2020) Performed for Adenocarcinoma of endometrium (HCC) * CULTURE YEAST(Performed 01/26/2020) Performed for Vaginal yeast infection * CANCER ANTIGEN (CA)125 BLOOD(Performed 12/10/2019) Performed for Adenocarcinoma of endometrium (HCC), Ovarian tumor * IMAGING/RADIOLOGY/XRAY RESULTS ORDER(Performed 12/04/2019) * HEMOGLOBIN A1C(Performed 11/17/2019) Performed for Healthcare maintenance * LIPID PROFILE(Performed 11/17/2019) * BASIC METABOLIC PANEL (CALCIUM TOTAL)(Performed 11/17/2019) * CANCER ANTIGEN (CA)125 BLOOD(Performed 09/05/2019) Performed for Malignant neoplasm of ovary, unspecified laterality (HCC) * MAMMOGRAM(Performed 08/25/2019) * CANCER ANTIGEN (CA)125 BLOOD(Performed 06/13/2019) Performed for Adenocarcinoma of endometrium (HCC), Ovarian tumor * CANCER ANTIGEN (CA)125 BLOOD(Performed 05/02/2019) Performed for Adenocarcinoma of endometrium (HCC), Ovarian tumor * [place] CENTRAL VENOUS CATH CHECK(Performed 02/11/2019) Performed for Vascular port complication, initial encounter, Adenocarcinoma of endometrium (HCC) * CT CHEST ABDOMEN PELVIS W CONT(Performed 02/07/2019) Performed for Adenocarcinoma of endometrium (HCC) * CREATININE BLOOD - POINT OF CARE (IP)(Performed 02/07/2019) Performed for Adenocarcinoma of endometrium (HCC) * CANCER ANTIGEN (CA)125 BLOOD(Performed 02/07/2019) Performed for Adenocarcinoma of endometrium (HCC), Ovarian tumor * CANCER ANTIGEN (CA)125 BLOOD(Performed 11/15/2018) Performed for Adenocarcinoma of endometrium (HCC), Ovarian tumor * CANCER ANTIGEN (CA)125 BLOOD(Performed 08/23/2018) Performed for Adenocarcinoma of endometrium (HCC), Ovarian tumor * THERAPY REPORT(Performed 06/06/2018) * CANCER ANTIGEN (CA)125 BLOOD(Performed 05/31/2018) Performed for Adenocarcinoma of endometrium (HCC) * LIPID PROFILE(Performed 04/18/2018) * HEMOGLOBIN A1C(Performed 04/18/2018) Performed for Health care maintenance * HEPATITIS C ANTIBODY(Performed 04/18/2018) Performed for Health care maintenance * CANCER ANTIGEN (CA)125 BLOOD(Performed 03/01/2018) Performed for Endometrial adenocarcinoma (HCC) * CANCER ANTIGEN (CA)125 BLOOD(Performed 12/14/2017) Performed for Endometrial adenocarcinoma (HCC) * LAB HISTORICAL RESULTS-ONBASE(Performed 12/14/2017) * HELICOBACTER PYLORI UREASE (STL)(Performed 12/06/2017) Performed for Abnormal CT scan * PATHOLOGY TISSUE EXAM (STL)(Performed 12/06/2017) Performed for Abnormal CT scan * ESOPHAGOGASTRODUODENOSCOPY (EGD) BIOPSY(Performed 12/06/2017) * ESOPHAGOGASTRODUODENOSCOPY (EGD) DIAGNOSTIC(Performed 12/06/2017) * EGD(Performed 12/06/2017) * PATHOLOGY TISSUE(Performed 11/29/2017) * PATHOLOGY TISSUE(Performed 11/29/2017) * PATHOLOGY/GENETICS HISTORICAL-ONBASE(Performed 11/29/2017) * CT CHEST ABDOMEN PELVIS W CONT(Performed 11/13/2017) Performed for Pulmonary nodules * CREATININE BLOOD - POINT OF CARE (IP)(Performed 11/13/2017) Performed for Endometrial adenocarcinoma (HCC) * LAB HISTORICAL RESULTS-ONBASE(Performed 11/13/2017) * CANCER ANTIGEN (CA)125 BLOOD(Performed 09/14/2017) Performed for Endometrial adenocarcinoma (HCC) * LAB HISTORICAL RESULTS-ONBASE(Performed 09/14/2017) * CANCER ANTIGEN (CA)125 BLOOD(Performed 06/21/2017) Performed for Endometrial adenocarcinoma (HCC) * LAB HISTORICAL RESULTS-ONBASE(Performed 06/21/2017) * CT CHEST ABDOMEN PELVIS W CONT(Performed 05/10/2017) Performed for Endometrial cancer (HCC) * CREATININE BLOOD - POINT OF CARE (IP)(Performed 05/10/2017) Performed for Endometrial cancer (HCC) * LAB HISTORICAL RESULTS-ONBASE(Performed 05/10/2017) * CBC W AUTO DIFFERENTIAL(Performed 04/27/2017) * CBC W AUTO DIFFERENTIAL(Performed 04/20/2017) * CBC W AUTO DIFFERENTIAL(Performed 04/13/2017) * CBC W AUTO DIFFERENTIAL(Performed 04/06/2017) * CBC W AUTO DIFFERENTIAL(Performed 04/03/2017) Performed for Endometrial adenocarcinoma (HCC) * LAB HISTORICAL RESULTS-ONBASE(Performed 04/03/2017) * LAB HISTORICAL RESULTS-ONBASE(Performed 04/03/2017) * MAGNESIUM BLOOD(Performed 03/30/2017) * COMPREHENSIVE METABOLIC PANEL(Performed 03/30/2017) * CBC W AUTO DIFFERENTIAL(Performed 03/30/2017) * CBC W AUTO DIFFERENTIAL(Performed 03/23/2017) * LAB RESULTS ORDER(Performed 03/20/2017) * CBC W AUTO DIFFERENTIAL(Performed 03/16/2017) * CBC W AUTO DIFFERENTIAL(Performed 03/13/2017) Performed for Endometrial adenocarcinoma (HCC) * LAB HISTORICAL RESULTS-ONBASE(Performed 03/13/2017) * MAGNESIUM BLOOD(Performed 03/09/2017) * COMPREHENSIVE METABOLIC PANEL(Performed 03/09/2017) * CBC W AUTO DIFFERENTIAL(Performed 03/09/2017) * DIFFERENTIAL MANUAL(Performed 03/02/2017) Performed for Endometrial adenocarcinoma (HCC) * CBC W AUTO DIFFERENTIAL(Performed 03/02/2017) Performed for Endometrial adenocarcinoma (HCC) * LAB HISTORICAL RESULTS-ONBASE(Performed 03/02/2017) * LAB RESULTS ORDER(Performed 02/28/2017) * CBC W AUTO DIFFERENTIAL(Performed 02/23/2017) * MAGNESIUM BLOOD(Performed 02/16/2017) * COMPREHENSIVE METABOLIC PANEL(Performed 02/16/2017) * CBC W AUTO DIFFERENTIAL(Performed 02/16/2017) * CBC W AUTO DIFFERENTIAL(Performed 02/09/2017) * CBC W AUTO DIFFERENTIAL(Performed 02/02/2017) * MAGNESIUM BLOOD(Performed 01/26/2017) * COMPREHENSIVE METABOLIC PANEL(Performed 01/26/2017) * CBC W AUTO DIFFERENTIAL(Performed 01/26/2017) * CBC W AUTO DIFFERENTIAL(Performed 01/19/2017) * LAB RESULTS ORDER(Performed 01/18/2017) * CBC W AUTO DIFFERENTIAL(Performed 01/12/2017) * MAGNESIUM BLOOD(Performed 01/05/2017) * COMPREHENSIVE METABOLIC PANEL(Performed 01/05/2017) * CBC W AUTO DIFFERENTIAL(Performed 01/05/2017) * CBC W AUTO DIFFERENTIAL(Performed 12/29/2016) * MAGNESIUM BLOOD(Performed 12/22/2016) * COMPREHENSIVE METABOLIC PANEL(Performed 12/22/2016) * CBC W AUTO DIFFERENTIAL(Performed 12/22/2016) * CANCER ANTIGEN (CA)125 BLOOD(Performed 12/22/2016) * CANCER ANTIGEN (CA)125 BLOOD(Performed 12/12/2016) Performed for Endometrial cancer (HCC) * CBC W AUTO DIFFERENTIAL(Performed 12/12/2016) Performed for Endometrial cancer (HCC) * MAGNESIUM BLOOD(Performed 12/12/2016) Performed for Endometrial cancer (HCC) * COMPREHENSIVE METABOLIC PANEL(Performed 12/12/2016) Performed for Endometrial cancer (HCC) * IR INSERT DEBBIE CVAD W SQ PT 5+YRS(Performed 12/12/2016) Performed for Endometrial cancer (HCC) * CARDIAC RHYTHM STRIP ORDER(Performed 11/11/2016) * APHERESIS/TRANSFUSION ORDER(Performed 11/11/2016) * BASIC METABOLIC PANEL (CALCIUM TOTAL)(Performed 11/08/2016) * CBC W/O DIFFERENTIAL(Performed 11/08/2016) * CYTOLOGY NON-SAFETY AND SECURITY MANAGER PANEL (STL)(Performed 11/07/2016) Performed for Ovarian tumor * PATHOLOGY TISSUE EXAM (STL)(Performed 11/07/2016) Performed for Ovarian tumor * OMENTECTOMY / OMENTOPLASTY(Performed 11/07/2016) Performed for Ovarian tumor * HYSTERECTOMY ABDOMINAL WITH SAMPLING/STAGING(Performed 11/07/2016) Performed for Ovarian tumor * LAPAROTOMY EXPLORATORY(Performed 11/07/2016) Performed for Ovarian tumor * BLOOD TYPE VERIFICATION(Performed 11/06/2016) Performed for Ovarian tumor * TYPE + SCREEN PANEL(Performed 11/06/2016) Performed for Ovarian tumor * BASIC METABOLIC PANEL (CALCIUM TOTAL)(Performed 11/06/2016) Performed for Ovarian tumor * CBC W AUTO DIFFERENTIAL(Performed 11/06/2016) Performed for Ovarian tumor * LAB HISTORICAL RESULTS-ONBASE(Performed 11/06/2016) Results * PET CT Skull To Mid Thigh (12/15/2024 11:28 AM CELLOPHANE CASTING MACHINE REPAIRER) Only the most recent of9 resultswithin the time period is included. Anatomical Region Laterality Modality Head, Lower Extremity Nuclear Me dicine 12/15/2024 11:5 1 AM CELLOPHANE CASTING MACHINE REPAIRER Impressions 12/15/2024 1:41 PM CELLOPHANE CASTING MACHINE REPAIRER IMPRESSION: 1. Interval disease progression with increased [...] 12/15/2024 1:41 PM Narrative 12/15/2024 1:41 PM CELLOPHANE CASTING MACHINE REPAIRER PROCEDURE: PET CT SKULL TO MID THIGH [...] left shoulder. There is Procedure Note Beverley Green DO - 12/15/2024 PROCEDURE: PET CT SKULL [...] RESULTS ORDER (12/04/2024) Only the most recent of33 resultswithin the time period is included. 12/04/2024 Narrative 12/04/2024 Ordered by an unspecified provider. Scanned Document LAB - THERAPEUTIC DR MARCELO MONITORING ORDERABLES * CT Cryo Tissue Ablation (09/18/2024 10:57 AM CDT) Only the most recent of2 resultswithin the time period is included. Anatomical Region Laterality Modality Abdomen Computed Tomogra phy 10/07/2024 3:12 PM CELLOPHANE CASTING MACHINE REPAIRER Impressions 10/07/2024 3:21 PM CELLOPHANE CASTING MACHINE REPAIRER IMPRESSION: Image guided cryoablation of the metastatic soft tissue painful lesion in the left lower neck and the along the lateral aspect of the expansile and lytic metastatic lesion involving the medial end of right clavicle (PET avid areas), as described above. Follow-up: The patient will be followed in 10-[address] contrast enhanced Head and Neck. I, Dr. Vance Dickson present and performed the entire procedure. > Interpreting Provider: Adrianna Dickson MD on 10/07/2024 3:21 PM Narrative 10/07/2024 3:21 PM CELLOPHANE CASTING MACHINE REPAIRER PROCEDURE: CT CRYO TISSUE ABLATION DATE/TIME OF EXAM: 10/06/2024 1:43 PM CLINICAL INFORMATION: None relevant/not provided if blank. 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 Emergency Service Worker: Dr. Vance Dickson, attending physician. PROCEDURE: 1. Limited noncontrast CT examination of the lower neck. 2. Placement of 2 [employer] ICE Needle cryoprobes and cryoablation of the metastatic endometrial carcinoma 3. Percutaneous cryoablation of the PET avid location along the lateral aspect previously ablated left clavicular metastatic endometrial cancer 3. Post ablation contrast-enhanced CT examination of the lower neck Anesthesia: 1. Local anesthesia 20 cc of 1% lidocaine. 2. General anesthesia. Procedure in detail: The procedure, risks, benefits and alternatives were explained to the patient and informed consent was obtained. The patient was given general anesthesia and placed supine on the CT table. With grid markers over the region of interest a limited noncontrast CT examination was obtained. The study demonstrated the known soft tissue lesion in the left lower neck and the previously ablated expansile and destructive lesion in the medial aspect of the right clavicle. The lesions soft tissue lesion was well appreciated on the ultrasound. Cryoablation of Soft tissue left lower neck lesion: After anesthetizing with the lidocaine, 2 separate [id number] ICE Needle cryoprobes were placed across the lesions, under real time ultrasound. Approximately 20 to 30 cc of saline was injected at subcutaneous plane to separate the skin from the cryoablation margin. Cryoablation was then performed using standard protocol 10 minutes freeze - 10 minutes passive thaw - 10 minutes freeze - 5 minutes active thaw. During the entire cryoablation, intermittent CT examination as well as ultrasound was performed to assess the extent of the cryoprobe and to avoid skin necrosis. In addition, warm saline was tripped over the region of interest to protect the skin. Following cryoablation, the needles were removed. Cryoablation of left clavicle metastatic lesion: After anesthetizing with the lidocaine, 2 separate [employer] [id number] ICE Needle cryoprobes were placed across the lateral aspect of the lesion (anticipated PET avid region), under real time ultrasound. Cryoablation was then performed using standard protocol 10 minutes freeze - 10 minutes passive thaw - 10 minutes freeze - 5 minutes active thaw. During the entire cryoablation, intermittent CT examination as well as ultrasound was performed to assess the extent of the cryoprobe and to avoid skin necrosis. Following cryoablation, the probes were removed. Sterile dressing was applied. The patient was transferred to holding area in stable condition. Procedure Note Adrianna Dickson MD - 10/07/2024 PROCEDURE: CT CRYO TISSUE ABLATION DATE/TIME OF EXAM: 10/06/2024 1:43 PM CLINICAL INFORMATION: None relevant/not provided if blank. Indication: C54.1: Adenocarcinoma of endometrium (HCC) C54.1: Recurrent carcinoma of endometrium (HCC) This is a 69-year-old the female with painful metastatic endometrial carcinoma with metastatic symptomatic soft tissue lesion in the leftlower soft tissue neck. Emergency Service Worker: Dr. Vance Dickson, attending physician. PROCEDURE: 1. Limited noncontrast CT examination of the lower neck. 2. Placement of 2 [employer] ICE Needle cryoprobes andcryoablation of the metastatic endometrial carcinoma 3. Percutaneous cryoablation of the PET avid location along the lateral aspect previously ablated left clavicular metastatic endometrial cancer 3. Post ablation contrast-enhanced CT examination of the lower neck Anesthesia: 1. Local anesthesia 20 cc of 1% lidocaine. 2. General anesthesia. Procedure in detail: The procedure, risks, benefits and alternativeswere explained to the patient and informed consent was obtained. The patientwas given general anesthesia and placed supine on the CT table. With grid markers over the region of interest a limited noncontrast CT examination was obtained. The study demonstrated the known soft tissue lesion in the left lower neck and the previously ablated expansile and destructive lesion in the medial aspect of the right clavicle. Thelesions soft tissue lesion was well appreciated on the ultrasound. Cryoablation of Soft tissue left lower neck lesion: After anesthetizing with the lidocaine, 2 separate [employer] [id number]-euquk ICE Needle cryoprobes were placed across the lesions, under real time ultrasound. Approximately 20 to 30 cc of saline was injected at subcutaneous plane to separate the skin from thecryoablation margin. Cryoablation was then performed using standard protocol 10minutes freeze - 10 minutes passive thaw - 10 minutes freeze - 5 minutes active thaw. During the entire cryoablation, intermittent CT examination aswell as ultrasound was performed to assess the extent of the cryoprobe and to avoid skin necrosis. In addition, warm saline was tripped over theregion of interest to protect the skin. Following cryoablation, the needles were removed. Cryoablation of left clavicle metastatic lesion: After anesthetizing with the lidocaine, 2 separate [employer] [id number]-thotd ICE Needle cryoprobes were placed across the lateral aspect of the lesion (anticipated PET avid region), under real time ultrasound. Cryoablation was then performed using standard protocol 10 minutes freeze - 10 minutes passive thaw - 10 minutes freeze - 5 minutes active thaw. During the entire cryoablation, intermittent CT examinationas well as ultrasound was performed to assess the extent of the cryoprobeand to avoid skin necrosis. Following cryoablation, the probes were removed. Sterile dressing was applied. The patient was transferred to holding area in stablecondition. IMPRESSION: Image guided cryoablation of the metastatic soft tissuepainful lesion in the left lower neck and the along the lateral aspect of the expansile and lytic metastatic lesion involving the medial end of right clavicle (PET avid areas), as described above. Follow-up: The patient will be followed in 10-[address] contrast enhanced Head and Neck. IDr. Vance present and performed the entire procedure. > Interpreting Provider: Adrianna Dickson MD on 10/07/2024 3:21 PM Adrianna Dickson MD CT ORDERABLES * ETT LINE PERFORMABLE (09/18/2024 8:17 AM CDT) Narrative Rob Gudino Anes Asst - 09/18/2024 8:17 AM CDT Rob Gudino Anes Asst 09/18/2024 8:25 AM Endotracheal Tube Placement: Patient Location: OR. Intubation Event Date/Time: 09/18/2024 8:02 AM Procedure: intubation ([id number]) Procedure Section: Sedation: under general anesthesia. Indications for Airway Management: anesthesia Procedure pretreatments used? No Induction: standard IV Patient Position: sniffing Mask Ventilation: easy. Blade Type: [place] Blade Size: 2 Laryngoscopy View: grade 1 (full cords) Tube: endotracheal tube Placement: oral Tube type: cuff - inflated Tube Size (MM): 7 Depth of Insertion (CM): 20 Measured From: lips Cuff volume (mL): 7 Cuff Inflated With: air Number of Attempts: 1. Placement Verified By: direct visualization, bilateral breath sounds, chest auscultation and CO2 monitor CXR Findings: ETT in proper place. Tube secured with: adhesive tape. Dentition unchanged? Yes Difficult Airway? No. Procedure Start Time: 09/18/2024 8:02 AM. Procedure End Time: 09/18/2024 8:06 AM. Procedure Total Time: 4 minutes. Staff Section Anesthesia Provider: Rob Gudino Anes Asst Provider #1: Shane Pichardo II, MD, Performed the procedure. Shane Pichardo II, MD GENERAL ANESTHESIA ORDERABLES * PT-INR [facility] (09/15/2024 9:25 AM CDT) Only the most recent of2 resultswithin the time period is included. PT 12.2 12.1 - 14.8 Seconds 09/15/2024 10:50 AM [facility] INR 0.9 See Comment 09/15/2024 10:50 AM [facility] Comment:The suggested therap eutic range for standard coumadin (warfarin) therapy is an INR of 2.0-3.0. For high-risk patients (Mechanical Mitral Valve Prosthesis, etc.), the suggested prophylactic therapeutic range is an INR of 2.5-3.5. Blood BLOOD SPECIMEN / Unknown Lab Venipuncture / Unknown 09/15/2024 9:25 AM CDT 09/15/2024 10:22 AM CDT Fanny Leon SPLUNK ARCHITECT-BATTERY TESTER FIELD LAB - COA GULATION ORDERABLES [facility] [address] [place] [address], [facility] [phone] * (ABNORMAL) CBC W/ DIFFERENTIAL (09/15/2024 9:25 AM CDT) Only the most recent of105 resultswithin the time period is included. WBC 10.6 4.0 - 10.7 x10E9/L 09/15/2024 10:41 AM [facility] RBC Count 3.54(L) 3.90 - 5.20 x10E12/L 09/15/2024 10:41 AM [facility] Hemoglobin 7.6(L) 11.9 - 15.8 g/dL 09/15/2024 10:41 AM [facility] Hematocrit 27.2(L) 34.8 - 46.1 % 09/15/2024 10:41 AM [facility] MCV 76.8(L) 80.0 - 98.0 fL 09/15/2024 10:41 AM [facility] MCH 21.5(L) 26.7 - 33.6 pg 09/15/2024 10:41 AM [facility] MCHC 27.9(L) 31.7 - 36.3 g/dL 09/15/2024 10:41 AM [facility] RDW-CV 16.3(H) 11.3 - 14.8 % 09/15/2024 10:41 AM [facility] Platelet Count 718(H) 150 - 420 x10E9/L 09/15/2024 10:41 AM [facility] MPV 8.6 7.8 - 11.4 fL 09/15/2024 10:41 AM [facility] Neutrophil % 79.2(H) 41.0 - 74.0 % 09/15/2024 10:41 AM [facility] Lymphocyte % 7.9(L) 17.0 - 47.0 % 09/15/2024 10:41 AM [facility] Monocyte % 6.7 3.0 - 11.0 % 09/15/2024 10:41 AM [facility] Eosinophil % 4.7 0.0 - 7.0 % 09/15/2024 10:41 AM [facility] Basophil % 0.5 0.0 - 1.6 % 09/15/2024 10:41 AM [facility] Immature Granulocytes % 1.0 0.0 - 1.0 % 09/15/2024 10:41 AM [facility] Neutrophil Absolute 8.37(H) 1.60 - 7.50 x10E9/L 09/15/2024 10:41 AM [facility] Lymphocyte Absolute 0.83(L) 1.00 - 4.40 x10E9/L 09/15/2024 10:41 AM [facility] Monocyte Absolute 0.71 0.15 - 1.00 x10E9/L 09/15/2024 10:41 AM [facility] Eosinophil Absolute 0.50 0.00 - 0.60 x10E9/L 09/15/2024 10:41 AM [facility] Basophil Absolute 0.05 0.00 - 0.13 x10E9/L 09/15/2024 10:41 AM [facility] Blood BLOOD SPECIMEN / Unknown Lab Venipuncture / Unknown 09/15/2024 9:25 AM CDT 09/15/2024 10:26 AM T Fanny Conradloh SPLUNK ARCHITECT-BATTERY TESTER FIELD LAB - HEM ATOLOGY ORDERABLES [facility] [address] [place] [id number], [facility] [phone] * (ABNORMAL) BASIC METABOLIC PANEL (CALCIUM TOTAL) (09/15/2024 9:25 AM CDT) Only the most recent of13 resultswithin the time period is included. BUN 18 7 - 26 mg/dL 09/15/2024 11:08 AM [facility] Creatinine 0.63 0.56 - 0.96 mg/dL 09/15/2024 11:08 AM [facility] Sodium 140 136 - 145 mmol/L 09/15/2024 11:08 AM [facility] Potassium 4.1 3.5 - 4.5 mmol/L 09/15/2024 11:08 AM [facility] Chloride 104 98 - 107 mmol/L 09/15/2024 11:08 AM [facility] CO2 24 22 - 29 mmol/L 09/15/2024 11:08 AM [facility] Glucose 140(H) 70 - 99 mg/dL 09/15/2024 11:08 AM [facility] Calcium 9.9 8.4 - 10.2 mg/dL 09/15/2024 11:08 AM [facility] Anion Gap 12 6 - 16 09/15/2024 11:08 AM [facility] BUN/Creatinine Ratio 29(H) 7 - 23 09/15/2024 11:08 AM [facility] Osmolality Calculated 294 275 - 295 mOsm/kg 09/15/2024 11:08 AM [facility] eGFR by CKD-EPI >90 >=90 mL/min/1.7 3 m2 09/15/2024 11:08 AM [facility] Blood BLOOD SPECIMEN / Unknown Lab Venipuncture / Unknown 09/15/2024 9:25 AM CDT 09/15/2024 10:26 AM CDT Fanny De Luna SPLUNK ARCHITECT-BATTERY TESTER FIELD LAB - LILI ALEX ORDERABLES [facility] [address] [place] [address], [facility] [phone] * CT Pelvis W Contrast (07/23/2024 12:13 PM CDT) Anatomical Region Laterality Modality Pelvis Computed Tomogra phy 07/23/2024 12:2 5 PM CDT Impressions 07/23/2024 12:33 PM CDT IMPRESSION: 1. Chronic right inguinal wound with granulation tissue. Several small fluid collections within this tissue which could represent abscesses. 2. There are several additional fluid collections in the more medial portions of the suprapubic fat. Chronic abscesses versus seromas. > Interpreting Provider: Tegan Neves MD on 07/23/2024 12:33 PM Narrative 07/23/2024 12:33 PM CDT PROCEDURE: CT PELVIS W CONTRAST DATE/TIME OF EXAM: 07/23/2024 12:13 PM CLINICAL INFORMATION: None relevant/not provided if blank. Indication: R19.09: Other intra-abdominal and pelvic swelling, mass and lump Additional History: Recurrent endometrial cancer. Abnormal PET findings in the right groin, suspected abscess COMPARISON: Body CT from 01/09/2024 and recent PET/CT from 07/07/2024 TECHNIQUE: CT of the pelvis was performed utilizing standard protocol. Triplanar reformations CT dose reduction technique was used, including Automated Exposure Control. IV CONTRAST: IOPAMIDOL 76 % IV SOLN:100 mL FINDINGS: There is chronic tissue loss and postsurgical changes in the anterior right groin. There appears to be granulation tissue in the anterior inguinal region extending to the skin surface without any overlying pad. Deep within this presumed granulation tissue there are are several small rim-enhancing fluid collections measuring 1.2 and 1.0 cm and may represent abscesses. More medially there are 2 additional slightly larger subcutaneous fluid collections measuring 1.7 and 1.3 cm respectively. These collections were also present on the scan from December 2023 and therefore is indeterminate if this is chronic infection or seromas. There are several subcentimeter foci of enhancement lateral to the right common femoral artery. There was accompanying elevated FDG uptake in these regions, most likely lymph nodes. These nodes are not abnormally enlarged and given the surrounding inflammation, could be reactive.. The right internal and common iliac chain nodes are unremarkable with evidence of previous lymph node dissection. The left inguinal regions and left iliac chains are unremarkable. The uterus is absent and the ovaries are not seen. The visualized pelvic bowel is normal. Chronic right hip internal fixation is noted. Procedure Note Tegan Neves MD - 07/23/2024 PROCEDURE: CT PELVIS W CONTRAST DATE/TIME OF EXAM: 07/23/2024 12:13 PM CLINICAL INFORMATION: None relevant/not provided if blank. Indication: R19.09: Other intra-abdominal and pelvic swelling, mass and lump Additional History: Recurrent endometrial cancer. Abnormal PET findingsin the right groin, suspected abscess COMPARISON: Body CT from 01/09/2024 and recent PET/CT from 07/07/2024 TECHNIQUE: CT of the pelvis was performed utilizing standard protocol. Triplanar reformations CT dose reduction technique was used, including Automated ExposureControl. IV CONTRAST: IOPAMIDOL 76 % IV SOLN:100 mL FINDINGS: There is chronic tissue loss and postsurgical changes in the anteriorright groin. There appears to be granulation tissue in the anterior inguinal region extending to the skin surface without any overlying pad. Deep within this presumed granulation tissue there are are several small rim-enhancing fluid collections measuring 1.2 and 1.0 cm and mayrepresent abscesses. More medially there are 2 additional slightly larger subcutaneous fluid collections measuring 1.7 and 1.3 cm respectively. These collections were also present on the scan from December 2023 and therefore is indeterminate if this is chronic infection or seromas. There are several subcentimeter foci of enhancement lateral to the right common femoral artery. There was accompanying elevated FDG uptake inthese regions, most likely lymph nodes. These nodes are not abnormallyenlarged and given the surrounding inflammation, could be reactive.. The right internal and common iliac chain nodes are unremarkable with evidence of previous lymph node dissection. The left inguinal regionsand left iliac chains are unremarkable. The uterus is absent and the ovaries are not seen. The visualizedpelvic bowel is normal. Chronic right hip internal fixation is noted. IMPRESSION: 1. Chronic right inguinal wound with granulation tissue. Several small fluid collections within this tissue which could represent abscesses. 2. There are several additional fluid collections in the more medial portions of the suprapubic fat. Chronic abscesses versus seromas. > Interpreting Provider: Tegan Neves MD on 07/23/2024 12:33 PM Ruddy Anderson MD CT ORDERABLES * (ABNORMAL) CREATININE - POCT INTERFACED (07/23/2024 12:03 PM CDT) Only the most recent of2 resultswithin the time period is included. Creatinine POCT 0.55(L) 0.70 - 1.20 mg/dL 07/23/2024 12:14 PM CDT [facility] eGFR >90 >=90 mL/min/1.7 3 m2 07/23/2024 12:14 PM CDT [facility] Blood BLOOD SPECIMEN / Unknown 07/23/2024 12:03 PM CDT 07/23/2024 12:14 PM CDT Jose Magan Ramesh SPLUNK ARCHITECT-SCIENTIFIC RECRUITER LAB - POINT O F CARE ORDERABLES Performing Organization Address City/State/[facility] Co de Phone Number [facility] [address] [place] [phone] * XR FEMUR RIGHT 2VW (06/18/2024 9:15 AM CDT) Only the most recent of3 resultswithin the time period is included. Anatomical Region Laterality Modality Lower Extremity Radiographic Raisa ging 06/18/2024 9:19 AM CDT Impressions 06/18/2024 9:20 AM CDT IMPRESSION: Femoral intertrochanteric fracture with intramedullary nail, unchanged in alignment. > Interpreting Provider: Ruddy Prieto MD on 06/18/2024 9:20 AM Narrative 06/18/2024 9:20 AM CDT PROCEDURE: XR FEMUR RIGHT 2VW DATE/TIME OF EXAM: 06/18/2024 9:15 AM CLINICAL INFORMATION: None relevant/not provided if blank. Indication: S72.141D: Closed displaced intertrochanteric fracture of right femur with routine healing, subsequent encounter Additional History: COMPARISON: 03/19/2024. TECHNIQUE: FINDINGS: Femoral intertrochanteric fracture fixation with a long cephalomedullary nail is again demonstrated. The hardware is intact. The osseous alignment is unchanged. Procedure Note Ruddy Prieto MD - 06/18/2024 PROCEDURE: XR FEMUR RIGHT 2VW DATE/TIME OF EXAM: 06/18/2024 9:15 AM CLINICAL INFORMATION: None relevant/not provided if blank. Indication: S72.141D: Closed displaced intertrochanteric fracture ofright femur with routine healing, subsequent encounter Additional History: COMPARISON: 03/19/2024. TECHNIQUE: FINDINGS: Femoral intertrochanteric fracture fixation with a long cephalomedullary nail is again demonstrated. The hardware is intact. The osseousalignment is unchanged. IMPRESSION: Femoral intertrochanteric fracture with intramedullary nail, unchanged in alignment. > Interpreting Provider: Ruddy Prieto MD on 06/18/2024 9:20 AM Shane Almanzar MD DIAGNOSTIC IMAGING O RDERABLES * CT CHEST W CONTRAST (05/09/2024 9:25 AM CDT) Anatomical Region Laterality Modality Chest Computed Tomogra phy 05/09/2024 9:48 AM CDT Impressions 05/09/2024 10:35 AM CDT Impression: 1.There is a 3.7 x 4.5 x 4.6 cm hypoattenuating masslike lesion seen in the region of the left medial clavicle, likely representing post ablation changes and treatment cavity. There is surrounding vascularity, could represent posttreatment hyperemia. Overall this area appears unchanged in size compared to 01/09/2024 without any convincing internal enhancement noted. Recommend continued attention on follow-up examinations. 2.Partially visualized left lower neck cervical lymph node measuring 1.0 cm is not significantly changed since prior exam. Continued attention on follow-up imaging. 3.Stable subcentimeter pulmonary nodules. > Dictated by Zeke Gaytan MD, (international affairs vice president). IJonathan have personally reviewed and interpreted this examination/study. > Interpreting Provider: Jonathan Sarkar on 05/09/2024 10:35 AM Narrative 05/09/2024 10:35 AM CDT PROCEDURE: CT CHEST W CONTRAST, DATE/TIME OF EXAM: 05/09/2024 9:26 AM, LOCATION [facility] INDICATION: Z98.890: Status post cryoablation ADDITIONAL CLINICAL INFORMATION: Ordering Provider Reason For Exam: S/P CLAVICLE AREA ABLATION COMPARISON: CT chest abdomen pelvis from outside hospital 01/09/2024. TECHNIQUE: CT of the chest was performed following the uneventful administration of 100 mL of Isovue 370 intravenous contrast according to standard protocol. Findings: Lines and tubes: Right internal jugular approach Port-A-Cath terminates in the cavoatrial junction Lower Neck and Axillae: There is a 3.7 x 4.5 x 4.6 cm (AP, TR, CC, series 3 image 23 and series 6 image 46) hypoattenuating masslike lesion seen at the left medial clavicle. There is surrounding vasculature and small ossific fragments. Overall this area appears grossly unchanged in terms of size compared to 01/09/2024. However no enhancement or nodularity seen within the mass lesion. Additionally, partially visualized left lower cervical lymph node measuring 1.0 cm (series 3 image 9) is not significantly changed since prior exam. Heart and Pericardium: The cardiac chambers are normal in size. No pericardial fluid or thickening is present. Mediastinum and Nohelia: No enlarged lymph nodes are present. Lungs: No pulmonary parenchymal or airway process is present. Left lower lobe pulmonary nodule measuring 6 Narita (series 4 image 74) is unchanged since prior exam. 3 mm subpleural pulmonary nodule in the left lower lobe (series 4 image 92). No pleural fluid or pneumothorax is present. Thoracic Vasculature: No vascular abnormality is present. Bones and Chest Wall: Bone windows demonstrate no suspicious lytic or blastic lesions. The visible osseous structures are intact. Upper Abdomen: The visible portions of the upper abdominal organs are normal. Procedure Note Jonathan Sarkar MD - 05/09/2024 PROCEDURE: CT CHEST W CONTRAST, DATE/TIME OF EXAM: 05/09/2024 9:26 AM, LOCATION [facility] INDICATION: Z98.890: Status post cryoablation ADDITIONAL CLINICAL INFORMATION: Ordering Provider Reason For Exam: S/P CLAVICLE AREA ABLATION COMPARISON: CT chest abdomen pelvis from outside hospital 01/09/2024. TECHNIQUE: CT of the chest was performed following the uneventful administration of 100 mL of Isovue 370 intravenous contrast according to standard protocol. Findings: Lines and tubes: Right internal jugular approach Port-A-Cath terminatesin the cavoatrial junction Lower Neck and Axillae: There is a 3.7 x 4.5 x 4.6 cm (AP, TR, CC, series 3 image 23 and series6 image 46) hypoattenuating masslike lesion seen at the left medialclavicle. There is surrounding vasculature and small ossific fragments. Overallthis area appears grossly unchanged in terms of size compared to 01/09/2024. However no enhancement or nodularity seen within the mass lesion. Additionally, partially visualized left lower cervical lymph nodemeasuring 1.0 cm (series 3 image 9) is not significantly changed since prior exam. Heart and Pericardium: The cardiac chambers are normal in size. No pericardial fluid orthickening is present. Mediastinum and Nohelia: No enlarged lymph nodes are present. Lungs: No pulmonary parenchymal or airway process is present. Left lower lobe pulmonary nodule measuring 6 Narita (series 4 image 74) is unchangedsince prior exam. 3 mm subpleural pulmonary nodule in the left lower lobe(series 4 image 92). No pleural fluid or pneumothorax is present. Thoracic Vasculature: No vascular abnormality is present. Bones and Chest Wall: Bone windows demonstrate no suspicious lytic or blastic lesions. The visible osseous structures are intact. Upper Abdomen: The visible portions of the upper abdominal organs are normal. Impression: 1.There is a 3.7 x 4.5 x 4.6 cm hypoattenuating masslike lesion seen inthe region of the left medial clavicle, likely representing post ablation changes and treatment cavity. There is surrounding vascularity, could represent posttreatment hyperemia. Overall this area appears unchangedin size compared to 01/09/2024 without any convincing internal enhancement noted. Recommend continued attention on follow-up examinations. 2.Partially visualized left lower neck cervical lymph node measuring 1.0cm is not significantly changed since prior exam. Continued attention on follow-up imaging. 3.Stable subcentimeter pulmonary nodules. > Dictated by Zeke Gaytan MD, (international affairs vice president). IJonathan have personally reviewed and interpreted this examination/study. > Interpreting Provider: Jonathan Sarkar on 05/09/2024 10:35 AM Adrianna Dickson MD CT ORDERABLES * XR HIP RIGHT 2VW OR MORE (03/19/2024 9:16 AM CDT) Only the most recent of4 resultswithin the time period is included. Anatomical Region Laterality Modality Pelvis, Lower Extremity Radiogra [facility] 03/19/2024 9:32 AM CDT Impressions 03/19/2024 9:32 AM CDT IMPRESSION: Unchanged osseous alignment. > Interpreting Provider: Ruddy Prieto MD on 03/19/2024 9:32 AM Narrative 03/19/2024 9:32 AM CDT PROCEDURE: XR HIP RIGHT 2VW OR MORE DATE/TIME OF EXAM: 03/19/2024 9:16 AM CLINICAL INFORMATION: None relevant/not provided if blank. Indication: S72.141A: Closed displaced intertrochanteric fracture of right femur, initial encounter ([facility]) Additional History: COMPARISON: 01/16/2024. FINDINGS: There is again a long cephalomedullary nail in the femur for an intertrochanteric fracture. The hardware is incompletely imaged but the visualized portion is intact. The fracture alignment is unchanged. The joint space is normal. Procedure Note Ruddy Prieto MD - 03/19/2024 PROCEDURE: XR HIP RIGHT 2VW OR MORE DATE/TIME OF EXAM: 03/19/2024 9:16 AM CLINICAL INFORMATION: None relevant/not provided if blank. Indication: S72.141A: Closed displaced intertrochanteric fracture ofright femur, initial encounter ([facility]) Additional History: COMPARISON: 01/16/2024. FINDINGS: There is again a long cephalomedullary nail in the femur for an intertrochanteric fracture. The hardware is incompletely imaged but the visualized portion is intact. The fracture alignment is unchanged. The joint space is normal. IMPRESSION: Unchanged osseous alignment. > Interpreting Provider: Ruddy Prieto MD on 03/19/2024 9:32 AM Shane Almanzar MD DIAGNOSTIC IMAGING O RDERABLES * (ABNORMAL) CBC W/O DIFFERENTIAL (03/04/2024 1:43 AM CDT) Only the most recent of16 resultswithin the time period is included. WBC 6.8 4.0 - 10.7 x10E9/L 03/04/2024 3:15 AM [facility] RBC Count 3.68(L) 3.90 - 5.20 x10E12/L 03/04/2024 3:15 AM [facility] Hemoglobin 8.9(L) 11.9 - 15.8 g/dL 03/04/2024 3:15 AM [facility] Hematocrit 28.2(L) 34.8 - 46.1 % 03/04/2024 3:15 AM [facility] MCV 76.6(L) 80.0 - 98.0 fL 03/04/2024 3:15 AM [facility] MCH 24.2(L) 26.7 - 33.6 pg 03/04/2024 3:15 AM [facility] MCHC 31.6(L) 31.7 - 36.3 g/dL 03/04/2024 3:15 AM [facility] RDW-CV 18.0(H) 11.3 - 14.8 % 03/04/2024 3:15 AM [facility] Platelet Count 293 150 - 420 x10E9/L 03/04/2024 3:15 AM [facility] MPV 9.0 7.8 - 11.4 fL 03/04/2024 3:15 AM [facility] Blood BLOOD SPECIMEN / Unknown Lab Venipuncture / Unknown 03/04/2024 1:43 AM CDT 03/04/2024 2:55 AM CDT Poli Live PA-C LAB - HEMATOLOGY ORDERABLES [facility] [address] [place] [address], [facility] [phone] * ETT LINE PERFORMABLE (03/03/2024 9:09 AM CDT) Narrative Boris Collins Anes Asst - 03/03/2024 9:09 AM CDT Boris Collins Anes Asst 03/03/2024 9:10 AM Endotracheal Tube Placement: Patient Location: OR. Intubation Event Date/Time: 03/03/2024 8:58 AM Procedure: intubation (81012). Procedure Section: Sedation: under general anesthesia. Indications for Airway Management: anesthesia Induction: standard IV Patient Position: sniffing Mask Ventilation: easy. Blade Type: Alexus Blade Size: 3 Laryngoscopy View: grade 1 (full cords) Intubation Adjuncts: stylet Tube: endotracheal tube Placement: oral Tube type: cuff - inflated Tube Size (MM): 7 Depth of Insertion (CM): 22 Measured From: teeth Cuff Inflated With: air Number of Attempts: 1. Placement Verified By: direct visualization, bilateral breath sounds, chest auscultation, CO2 monitor and CO2 detector Tube secured with: adhesive tape. Dentition unchanged? Yes Difficult Airway? No. Procedure Start Time: 03/03/2024 8:58 AM. Staff Section Anesthesia Provider: Boris Collins Anes Asst, Performed the procedure Provider #1: Kari Christie MD. Additional Comments: Atraumatic intubation, dentition as in pre-op. . Kari Christie MD GENERAL ANESTHESIA O RDERABLES * TYPE + SCREEN PANEL (03/03/2024 7:00 AM CDT) Only the most recent of8 resultswithin the time period is included. Antibody Screen NEG 7:52 AM CDT [facility] ABO Rh A POS 03/03/2024 7:52 AM CDT [facility] Blood Bank BLOOD SPECIMEN / Unknown Venipuncture / Unknown 03/03/2024 7:00 AM CDT 03/03/2024 7:13 AM CDT Lissy Montero SPLUNK ARCHITECT-SCIENTIFIC RECRUITER LAB - BLOOD BANK ORDERABLES [facility] [address] [place] [address], [facility] [phone] * CT CHEST ABDOMEN PELVIS W CONT (01/09/2024 10:36 AM CELLOPHANE CASTING MACHINE REPAIRER) Only the most recent of6 resultswithin the time period is included. Anatomical Region Laterality Modality Chest, Abdomen, Pelvis Computed Tomography 01/09/2024 10:4 3 AM CELLOPHANE CASTING MACHINE REPAIRER Narrative 01/09/2024 11:29 AM CELLOPHANE CASTING MACHINE REPAIRER PROCEDURE: CT CHEST ABDOMEN PELVIS W CONT, DATE/TIME OF EXAM: 01/09/2024 10:37 AM, LOCATION [facility] INDICATION: C54.1: Malignant neoplasm of endometrium (CMS-HCC). CT CHEST, ABDOMEN AND PELVIS HISTORY: Endometrial carcinoma follow-up. The patient also complains of left clavicle swelling. TECHNIQUE: Postcontrast CT chest, abdomen and pelvis obtained following intravenous administration of 100 mL Isovue-370 and oral contrast. Comparison is made to CT abdomen and pelvis dated 07/09/[address] chest, abdomen and pelvis dated 12/19/2022. CT CHEST: There has been interval enlargement of an increased bone destruction of a soft tissue mass involving the head of the left clavicle now measuring 3.7 x 4.6 cm in transverse dimensions. There has been interval enlargement of a previously small left lymph node within the left anterior-superior mediastinum/carotid space now measuring 1.1 cm. Additional smaller mediastinal lymph nodes are present. The heart size is stable. There is coronary artery calcification. There is no pericardial effusion. The visualized vascular structures enhance normally. The lungs are clear. There is no lung consolidation, pleural effusion or pneumothorax. CT ABDOMEN/PELVIS: The liver is grossly normal without focal lesions. The hepatic and portal veins enhance normally. The gallbladder is normal. There is mild prominence of the mid common bile duct. No other evidence of intra or extrahepatic bile duct dilatation is seen. There is new enlargement of the pancreatic duct within the uncinate process measuring approximately 0.6 to 0.7 cm. The pancreas is otherwise normal. The spleen is unremarkable. The adrenal glands, kidneys, ureters and bladder appear grossly normal. The uterus is surgically absent. Evidence of prior pelvic lymphadenectomy are present and unchanged. No adnexal mass or significant pelvic adenopathy is seen. The aorta and its branches enhance normally. The visualized stomach, large and small bowel are normal without free air or free fluid. Since the prior examination, there is interval improvement in appearance of an open wound in the left groin with interval decrease in the size of the visualized necrotic metastasis or abscess. A persistent small residual focal rounded fluid collection is present measuring 1.5 cm, see image 124 series 3. There has been interval open reduction internal fixation of a right proximal femoral fracture. A small focal fluid collection is present within the deep subcutaneous soft tissues within the proximal lateral thigh measuring 1.5 cm, see image 146 series 3. There are no additional lytic or bone destructive lesions. DIAGNOSIS: There has been interval enlargement and increased bone destruction of a mass within the head of the left clavicle. Additionally, there is interval enlargement of an anterior-superior or pericarotid lymph node as described. There has been interval improvement of a necrotic mass or abscess within the right inguinal region. There is slight interval increase in the caliber of the pancreatic duct within the uncinate process of the pancreas which is nonspecific and follow-up could be obtained. There has been interval open reduction internal fixation of a proximal right femoral fracture. A small loculated fluid collection is present within the deep subcutaneous tissues of the lateral right thigh. Considerations include postoperative seroma, hematoma or abscess. Edited by Rosibel Hayes on 01/09/2024 11:14 AM > Interpreting Provider: Kwan Mesa MD on 01/09/2024 11:29 AM Procedure Note Kwan Mesa MD - 01/09/2024 PROCEDURE: CT CHEST ABDOMEN PELVIS W CONT, DATE/TIME OF EXAM:01/09/2024 10:37 AM, LOCATION [facility] INDICATION: C54.1: Malignant neoplasm of endometrium (CMS-HCC). CT CHEST, ABDOMEN AND PELVIS HISTORY: Endometrial carcinoma follow-up. The patient also complains of left clavicle swelling. TECHNIQUE: Postcontrast CT chest, abdomen and pelvis obtained following intravenous administration of 100 mL Isovue-370 and oral contrast. Comparison ismade to CT abdomen and pelvis dated 07/09/[address] chest, abdomen andpelvis dated 12/19/2022. CT CHEST: There has been interval enlargement of an increased bone destruction ofa soft tissue mass involving the head of the left clavicle now measuring3.7 x 4.6 cm in transverse dimensions. There has been interval enlargement ofa previously small left lymph node within the left anterior-superior mediastinum/carotid space now measuring 1.1 cm. Additional smaller mediastinal lymph nodes are present. The heart size is stable. There is coronary artery calcification. Thereis no pericardial effusion. The visualized vascular structures enhance normally. The lungs are clear. There is no lung consolidation, pleural effusion or pneumothorax. CT ABDOMEN/PELVIS: The liver is grossly normal without focal lesions. The hepatic andportal veins enhance normally. The gallbladder is normal. There is mildprominence of the mid common bile duct. No other evidence of intra or extrahepatic bile duct dilatation is seen. There is new enlargement of the pancreatic duct within the uncinate process measuring approximately 0.6 to 0.7 cm.The pancreas is otherwise normal. The spleen is unremarkable. The adrenal glands, kidneys, ureters and bladder appear grossly normal. The uterus is surgically absent. Evidence of prior pelviclymphadenectomy are present and unchanged. No adnexal mass or significant pelvicadenopathy is seen. The aorta and its branches enhance normally. The visualized stomach, large and small bowel are normal without freeair or free fluid. Since the prior examination, there is interval improvement in appearanceof an open wound in the left groin with interval decrease in the size ofthe visualized necrotic metastasis or abscess. A persistent small residual focal rounded fluid collection is present measuring 1.5 cm, see [id number] series 3. There has been interval open reduction internal fixation of a right proximal femoral fracture. A small focal fluid collection is presentwithin the deep subcutaneous soft tissues within the proximal lateral thigh measuring 1.5 cm, see image 146 series 3. There are no additional lytic or bone destructive lesions. DIAGNOSIS: There has been interval enlargement and increased bone destruction of a mass within the head of the left clavicle. Additionally, there isinterval enlargement of an anterior-superior or pericarotid lymph node asdescribed. There has been interval improvement of a necrotic mass or abscess within the right inguinal region. There is slight interval increase in the caliber of the pancreatic duct within the uncinate process of the pancreas which is nonspecific and follow-up could be obtained. There has been interval open reduction internal fixation of a proximal right femoral fracture. A small loculated fluid collection is present within the deep subcutaneous tissues of the lateral right thigh. Considerations include postoperative seroma, hematoma or abscess. Edited by Rosibel Hayes on 01/09/2024 11:14 AM > Interpreting Provider: Kwan Mesa MD on 01/09/2024 11:29 AM Shane Bull MD CT ORDERABLES * (ABNORMAL) COMPREHENSIVE METABOLIC PANEL (12/28/2023 10:10 AM CELLOPHANE CASTING MACHINE REPAIRER) Only the most recent of64 resultswithin the time period is included. Glucose 141(H) 70 - 99 mg/dL [facility] INSURANCE BILL BUN 16 8 - 27 mg/dL [facility] INSURANCE BILL Creatinine 0.60 0.57 - 1.00 mg/dL [facility] INSURANCE BILL eGFR by CKD-EPI 97 >59 mL/min/1.7 3 [facility] INSURANCE BILL BUN/Creatinine Ratio 27 12 - 28 [facility] INSURANCE BILL Sodium 144 134 - 144 mmol/L [facility] INSURANCE BILL Potassium 4.1 3.5 - 5.2 mmol/L [facility] INSURANCE BILL Chloride 102 96 - 106 mmol/L [facility] INSURANCE BILL CO2 25 20 - 29 mmol/L [facility] INSURANCE BILL Calcium 9.6 8.7 - 10.3 mg/dL [facility] INSURANCE BILL Protein Total 6.6 6.0 - 8.5 g/dL [facility] INSURANCE BILL Albumin 4.1 3.9 - 4.9 g/dL [facility] INSURANCE BILL Globulin Total 2.5 1.5 - 4.5 g/dL [facility] INSURANCE BILL Albumin/Globulin Ratio 1.6 1.2 - 2.2 [facility] INSURANCE BILL Bilirubin Total <0.2 0.0 - 1.2 mg/dL [facility] INSURANCE BILL Alkaline Phosphatase 112 44 - 121 IU/L [facility] INSURANCE BILL AST 17 0 - 40 IU/L [facility] INSURANCE BILL ALT 10 0 - 32 IU/L [facility] INSURANCE BILL Blood BLOOD SPECIMEN / Unknown 12/28/2023 10:10 AM CELLOPHANE CASTING MACHINE REPAIRER 12/28/2023 Narrative Resulting Agency Comment Lab Testing performed at: [facility] [address] [facility] [phone] Shane Bull MD LAB - CHEMISTRY RICARDO DO [facility] INSURANCE BILL [address] [place] [address] * MAGNESIUM BLOOD (12/28/2023 10:10 AM CELLOPHANE CASTING MACHINE REPAIRER) Only the most recent of77 resultswithin the time period is included. Magnesium 1.6 1.6 - 2.3 mg/dL [facility] INSURANCE BILL Blood BLOOD SPECIMEN / Unknown 12/28/2023 10:10 AM CELLOPHANE CASTING MACHINE REPAIRER 12/28/2023 Narrative Resulting Agency Comment Lab Testing performed at: [facility] [address] [facility] [phone] Shane Bull MD LAB - CHEMISTRY RICARDO DO [facility] INSURANCE BILL [address] [place] [address] * PREPARE (CROSSMATCH) RBC UNIT(S), 1 Units (10/15/2023 1:17 AM CELLOPHANE CASTING MACHINE REPAIRER) Only the most recent of4 resultswithin the time period is included. Unit Description AS1 LR PRBC [facility] Unit ABO A [facility] Unit Rh POS [facility] Product Number R02 [facility] Unit Donor # [id number] [facility] Unit Status released [facility] BLOO D BANK LAB Product Code [id number] [facility] OD [facility] Blood Type Barcode [address] [facility] Expiration Date S BLOOD BANK LAB Blood Bank BLOOD SPECIMEN / Unknown 10/13/2023 7:51 AM CELLOPHANE CASTING MACHINE REPAIRER Luis Ray MD LAB - BLOOD BANK OR DERABLES [facility] [address] [place] [address], [facility] [phone] * (ABNORMAL) GLUCOSE - POINT OF CARE (10/14/2023 12:17 PM CELLOPHANE CASTING MACHINE REPAIRER) Only the most recent of23 resultswithin the time period is included. Pathologist [facility] Glucose WB/POC 119(H) 70 - 115 mg/dL 10/14/2023 12:18 PM CELLOPHANE CASTING MACHINE REPAIRER [facility] Specimen Type Arterial 10/14/2023 12:18 PM CELLOPHANE CASTING MACHINE REPAIRER [facility] Blood BLOOD SPECIMEN / Unknown 10/14/2023 12:17 PM CELLOPHANE CASTING MACHINE REPAIRER 10/14/2023 12:18 PM CELLOPHANE CASTING MACHINE REPAIRER Luis Ray MD LAB - POINT OF CARE ORDERABLES [facility] [address] [place] [address], [place] [phone] * (ABNORMAL) HEMOGLOBIN (10/13/2023 3:55 PM CELLOPHANE CASTING MACHINE REPAIRER) Hemoglobin 9.1(L) 12.0 - 15.6 g/dL 10/13/2023 4:47 PM CELLOPHANE CASTING MACHINE REPAIRER [facility] Blood BLOOD SPECIMEN / Unknown Lab Venipuncture / Unknown 10/13/2023 3:55 PM CELLOPHANE CASTING MACHINE REPAIRER 10/13/2023 4:07 PM CELLOPHANE CASTING MACHINE REPAIRER Luis Ray MD LAB - HEMATOLOGY OR DERABLES Performing Organization Address City/[facility]/ZIP Co de Phone Number [facility] [address] [place] [address], [place] [phone] * TRANSFUSE RED BLOOD CELL LEUKOREDUCED UNIT(S) (10/13/2023 11:51 AM CELLOPHANE CASTING MACHINE REPAIRER) Luis Ray MD NURSING - BLOOD PRO D TRANSFUSION * (ABNORMAL) IRON + TRANSFERRIN PANEL (10/12/2023 2:12 AM CELLOPHANE CASTING MACHINE REPAIRER) Iron 15(L) 40 - 150 ug/dL 10/12/2023 2:43 AM [facility] Transferrin 152(L) 174 - 382 mg/dL 10/12/2023 2:43 AM [facility] Transferrin Saturation % 8(L) 16 - 50 % 10/12/2023 2:43 AM [facility] TIBC Calculated 190(L) 240 - 450 ug/dL 10/12/2023 2:43 AM [facility] Blood BLOOD SPECIMEN / Unknown Lab Venipuncture / Unknown 10/12/2023 2:12 AM CELLOPHANE CASTING MACHINE REPAIRER 10/12/2023 2:18 AM CELLOPHANE CASTING MACHINE REPAIRER Luis Ray MD LAB - CHEMISTRY ORD ERABLES Performing Organization Address City/[facility]/ZIP Co de Phone Number [facility] [address] [place] [id number], [place] [phone] * FERRITIN (10/12/2023 2:12 AM CELLOPHANE CASTING MACHINE REPAIRER) Ferritin 122 13 - 204 ng/mL 10/12/2023 2:58 AM CELLOPHANE CASTING MACHINE REPAIRER [facility] Blood BLOOD SPECIMEN / Unknown Lab Venipuncture / Unknown 10/12/2023 2:12 AM CELLOPHANE CASTING MACHINE REPAIRER 10/12/2023 2:18 AM CELLOPHANE CASTING MACHINE REPAIRER Luis Ray MD LAB - CHEMISTRY ORD ERABLES [facility] [address] [place] [address], [facility] [phone] * FL JOO SURGERY (10/09/2023 3:16 PM CELLOPHANE CASTING MACHINE REPAIRER) Narrative [facility] - 10/09/2023 3:17 PM CELLOPHANE CASTING MACHINE REPAIRER Fluoroscopy was used for this exam in the OR. Please see the Operative report. Shane Almanzar MD FLUOROSCOPY ORDERABL ES Performing Organization Address [facility]/ZIP Co de Phone Number [facility] * PATHOLOGY TISSUE (10/09/2023 3:02 PM CELLOPHANE CASTING MACHINE REPAIRER) Only the most recent of3 resultswithin the time period is included. Case Report Surgical Pathology Report Case: [id number] Authorizing Provider: Shane Almanzar MD Collected: 10/09/2023 03:02 PM Ordering Location: [address] Received: 10/10/2023 04:49 AM Pathologist: Peggy Dailey MD Specimen: Bone Fragments, RIGHT PROXIMAL FEMUR RULE OUT METASTATIC DIAGNOSIS D/T PATHOLOGICAL FRACTURE 10/17/2023 7:00 PM [facility] Final Diagnosis Bone, right proximal femur, debridement (A): - Bone fragments and hematopoetic elements with hemorrhage (history of pathologic fracture) - Negative for malignancy 10/17/2023 7:00 PM [facility] Microscopic Description and Comment Microscopic examination substantiates the final diagnosis. 10/17/2023 7:00 PM [facility] Clinical History The patient is a 68-year-old woman with recurrent stage IV endometrioid endometrial adenocarcinoma with multiple rounds of chemo, radiation and resection. She had a recent history (08/10 2023-08/20/2001/08/2023) of complex right inguinal wound with abscess/mass which showed metastatic adenocarcinoma. She has a history of fall and presented with high subtrochanteric femur fracture and underwent limited open with intramedullary nailing. 10/17/2023 7:00 PM [facility] Gross Description The requisition and specimen(s) are identified with the patient's name, Laquita Rodriguez. Received in formalin, specimen A , is a 6.0 x 4.0 x 1.0 cm aggregate of paris-brown to red-brown soft bony fragments and clot which is submitted in toto in cassette [id number]. IKD 10/17/2023 7:00 PM [facility] Pathologist Location at [facility] 10/17/2023 7:00 PM [facility] Disclaimer The performance characteristics of all immunohistochemical and indirect immunofluorescence stains (if any) cited in this report were determined by the Histopathology Laboratory of [facility]. Some of these tests were developed by our own laboratory and have not been cleared or approved by the US Food and Drug Administration. The FDA does not require this test to go through premarket FDA review. These tests are used for clinical purposes. They should not be regarded as investigational or for research. This laboratory is certified under the Clinical Laboratory Improvement Amendments (CLIA) as qualified to perform high complexity clinical laboratory testing. This case has been personally reviewed and interpreted by the attending (teaching) pathologist. 10/17/2023 7:00 PM [facility] Embedded Images 10/17/2023 7:00 PM [facility] Biopsy, Excision BONE TISSUE SPECIMEN / Unknown 10/09/2023 3:02 PM CELLOPHANE CASTING MACHINE REPAIRER 10/10/2023 4:49 AM CELLOPHANE CASTING MACHINE REPAIRER Comment:Pre-op diagnosis: RIGHT IT FRACTURE Shane Almanzar MD LAB - PATHOLOGY/CYTO LOGY ORDERABLES [facility] [address] [place] [address], [facility] [phone] * IV PLACEMENT PERFORMABLE (10/09/2023 1:56 PM CELLOPHANE CASTING MACHINE REPAIRER) Rob Rodriguez Anes Asst - 10/09/2023 1:56 PM CELLOPHANE CASTING MACHINE REPAIRER Rob Denson Anes Asst 10/09/2023 1:56 PM Peripheral IV Line Placement: Patient Location: OR Procedure: IV start ([id number]). Procedure Section: Skin Prep: alcohol. Orientation: left Location: wrist Catheter Gauge: 16 Catheter Length (in): 1 Number of Attempts: 1. Procedure Start Time: 10/09/2023 1:33 PM. Staff Section Anesthesia Provider: Rob Denson Anes Asst, Performed the procedure Provider #1: Judith Espinal DO. Judith Espinal DO GENERAL ANESTHESIA ORDERABLES * ETT LINE PERFORMABLE (10/09/2023 1:55 PM CELLOPHANE CASTING MACHINE REPAIRER) Rob Rodriguez Anes Asst - 10/09/2023 1:55 PM CELLOPHANE CASTING MACHINE REPAIRER Rob Denson Anes Asst 10/09/2023 1:56 PM Endotracheal Tube Placement: Patient Location: OR. Intubation Event Date/Time: 10/09/2023 1:26 PM Procedure: intubation ([id number]). Procedure Section: Sedation: under general anesthesia. Indications for Airway Management: anesthesia Induction: standard IV Patient Position: sniffing Mask Ventilation: easy. Blade Type: Durham Blade Size: 2 Laryngoscopy View: grade 1 (full cords) Tube: endotracheal tube Placement: oral Tube type: cuff - inflated Tube Size (MM): 7 Depth of Insertion (CM): 21 Measured From: teeth Cuff Inflated With: air Number of Attempts: 1. Placement Verified By: CO2 monitor Tube secured with: adhesive tape. Dentition unchanged? Yes Difficult Airway? No. Procedure Start Time: 10/09/2023 1:26 PM. Staff Section Anesthesia Provider: Rob Denson Anes Asst, Performed the procedure Provider #1: Judith Espinal DO. Judith Espinal DO GENERAL ANESTHESIA ORDERABLES * CT HIP RIGHT WO CONTRAST (10/09/2023 7:48 AM CELLOPHANE CASTING MACHINE REPAIRER) Anatomical Region Laterality Modality Lower Extremity Computed Tomogra phy 10/09/2023 7:58 AM CELLOPHANE CASTING MACHINE REPAIRER Addenda Addendum by Ruddy Prieto MD on 10/09/2023 9:39 AM CELLOPHANE CASTING MACHINE REPAIRER No bone lesion is visualized. > Interpreting Provider: Ruddy Prieto MD on 10/09/2023 9:37 AM Impressions 10/09/2023 8:35 AM CELLOPHANE CASTING MACHINE REPAIRER IMPRESSION: Moderately displaced proximal femoral fracture. > Dictated by Suhas Guallpa MD (Resident). I, Ruddy Prieto MD have personally reviewed and interpreted this examination/study. > Interpreting Provider: Ruddy Priteo MD on 10/09/2023 8:35 AM Narrative 10/09/2023 8:35 AM CELLOPHANE CASTING MACHINE REPAIRER PROCEDURE: CT HIP RIGHT WO CONTRAST, DATE/TIME OF EXAM: 10/09/2023 7:48 AM, LOCATION [facility] INDICATION: S72.141A: Closed displaced intertrochanteric fracture of right femur, initial encounter ([facility]) ADDITIONAL CLINICAL INFORMATION: Ordering Provider Reason For Exam: concern for pathologic fracture COMPARISON: Right femur radiographs 10/08/2023 TECHNIQUE: CT of the right hip was performed utilizing standard protocol. Coronal and sagittal reconstructions were subsequently obtained. CT dose reduction technique was used, including Automated Exposure Control. FINDINGS: A proximal femoral fracture is present having a mildly displaced intertrochanteric component and a moderately displaced subtrochanteric component. There is varus angulation of the fracture with neck-shaft angle measuring 96 degrees. There is no dislocation. There is minimal degenerative change. There is surrounding soft tissue edema. There is thickening of the subcutaneous tissues in the right groin region. There are surgical clips in the right hemipelvis. Procedure Note Ruddy Prieto MD - 10/09/2023 PROCEDURE: CT HIP RIGHT WO CONTRAST, DATE/TIME OF EXAM: 37:48 AM, LOCATION [facility] INDICATION: S72.141A: Closed displaced intertrochanteric fracture of right femur, initial encounter ([facility]) ADDITIONAL CLINICAL INFORMATION: Ordering Provider Reason For Exam: concern for pathologic fracture COMPARISON: Right femur radiographs 10/08/2023 TECHNIQUE: CT of the right hip was performed utilizing standard protocol. Coronaland sagittal reconstructions were subsequently obtained. CT dose reduction technique was used, including Automated ExposureControl. FINDINGS: A proximal femoral fracture is present having a mildly displaced intertrochanteric component and a moderately displaced subtrochanteric component. There is varus angulation of the fracture with neck-shaftangle measuring 96 degrees. There is no dislocation. There is minimal degenerative change. There is surrounding soft tissue edema. There is thickening of the subcutaneous tissues in the right groin region. Thereare surgical clips in the right hemipelvis. IMPRESSION: Moderately displaced proximal femoral fracture. > Dictated by Suhas Guallpa MD (Resident). I, Ruddy Prieto MD have personally reviewed and interpreted this examination/study. > Interpreting Provider: Ruddy Prieto MD on 10/09/2023 8:35 AM Adeline Gallardo MD CT ORDERABLES * (ABNORMAL) HEMOGLOBIN A1C (10/09/2023 2:15 AM CELLOPHANE CASTING MACHINE REPAIRER) Only the most recent of3 resultswithin the time period is included. Hemoglobin A1c 5.9(H) <=5.6 % 10/09/2023 8:59 AM [facility] Estimated Average Glucose 123 mg/dL 10/09/2023 8:59 AM [facility] Comment: HbA1c Interpretation: Normal : < 5.7% Pre-diabetes: 5.7-6.4% Diabetes: Equal to or greater than 6.5% Test results diagnostic of diabetes should be repeated for confirmation. Treatment target values recommended by ADA and other clinical organizations should be used to evaluate metabolic control in patients. Reference: [place] [employer], Standards of Care in Diabetes -2020 In patients 70 years and older consider HbA1c target range of 7.0-7.5% (Reference: Alfred Ng et al. JAMDA. 2012) The Sebia assay for the measurement of HbA1c is a National Glycohemoglobin Standardization Program (NGSP) certified method. Blood BLOOD SPECIMEN / Unknown Lab Venipuncture / Unknown 10/09/2023 2:15 AM CELLOPHANE CASTING MACHINE REPAIRER 10/09/2023 2:54 AM CELLOPHANE CASTING MACHINE REPAIRER Adeline Gallardo MD LAB - CHEMISTRY RICARDO DO [facility] Organization Address City/State/ZIP Co de Phone Number [facility] [address] [place] [address], [facility] [phone] * VITAMIN D 25-HYDROXY (10/09/2023 2:15 AM CELLOPHANE CASTING MACHINE REPAIRER) Vitamin D, 25 Hydroxy 43.0 30.0 - 80.0 ng/mL 10/09/2023 3:41 AM CELLOPHANE CASTING MACHINE REPAIRER [facility] Comment: The recommendations for 25-Hydroxy Vitamin D clinical decision points are as follows: Deficient: <20.0 ng/mL Insufficient: 20.0 - 29.9 ng/mL Sufficient: 30.0 - 100.0 ng/mL Potential Toxicity: >100 ng/mL Reference: The Endocrine Society Clinical Practice Guidelines. 2011 If the 25-Hydroxy Vitamin D results are inconsitent with clinical evidence, it is recommended that follow-up testing using a method such as LC/MS/MS be performed to confirm the result. Blood BLOOD SPECIMEN / Unknown Lab Venipuncture / Unknown 10/09/2023 2:15 AM CELLOPHANE CASTING MACHINE REPAIRER 10/09/2023 2:51 AM CELLOPHANE CASTING MACHINE REPAIRER Anni Pires PA-C LAB - [place] TRY ORDERABLES Performing Organization Address City/[facility]/ZIP Co de Phone Number [facility] [address] [place] [phone] [phone] * EKG 12-LEAD (10/08/2023 9:44 PM CELLOPHANE CASTING MACHINE REPAIRER) Pathologist [facility] Ventricular Rate 64 BPM [facility] MUSE Atrial Rate 64 BPM [facility] MUSE P-R Interval 192 ms [facility] MUSE QRS Duration ms 90 ms [facility] MUSE Q-T Interval ms 412 ms [facility] MUSE QTC Calculation (Bezet) 425 ms SL MUSE Calculated P Sidney 49 degrees SL MUSE Calculated R Sidney -36 degrees SL MUSE Calculated T Sidney 40 degrees SL MUSE Interpretation EKG NORMAL SINUS RHYTHM LEFT AXIS DEVIATION ABNORMAL ECG NO PREVIOUS ECGS AVAILABLE Confirmed by JORDAN PHILLIPS, ADRIA ([id number]) on 10/09/2023 3:53:07 PM [facility] MUSE 10/08/2023 9:44 PM CELLOPHANE CASTING MACHINE REPAIRER 10/09/2023 3:53 PM CELLOPHANE CASTING MACHINE REPAIRER Adeline Gallardo MD ECG ORDERABLES H MUSE * XR STRESS ANY JOINT (10/08/2023 8:01 PM CELLOPHANE CASTING MACHINE REPAIRER) Anatomical Region Laterality Modality Lower Extremity, Upper Extremity Radiographic Imaging 10/09/2023 9:14 PM CELLOPHANE CASTING MACHINE REPAIRER Impressions 10/09/2023 9:15 PM CELLOPHANE CASTING MACHINE REPAIRER IMPRESSION: There is a displaced fracture of the right proximal femur. Hip joint is intact. > Interpreting Provider: Pawel Gallagher MD on 10/09/2023 9:15 PM Narrative 10/09/2023 9:15 PM CELLOPHANE CASTING MACHINE REPAIRER PROCEDURE: XR STRESS ANY JOINT DATE/TIME OF EXAM: 10/08/2023 8:01 PM CLINICAL INFORMATION: None relevant/not provided if blank. Indication: M25.551: Right hip pain Additional History: COMPARISON: None. Procedure Note Pawel Gallagher MD - 10/09/2023 PROCEDURE: XR STRESS ANY JOINT DATE/TIME OF EXAM: 10/08/2023 8:01 PM CLINICAL INFORMATION: None relevant/not provided if blank. Indication: M25.551: Right hip pain Additional History: COMPARISON: None. IMPRESSION: There is a displaced fracture of the right proximal femur. Hip joint is intact. > Interpreting Provider: Pawel Gallagher MD on 10/09/2023 9:15 PM Adeline Gallardo MD DIAGNOSTIC IMAGING O RDERABLES * XR PELVIS W RIGHT HIP 2VW (10/08/2023 9:28 AM CELLOPHANE CASTING MACHINE REPAIRER) Anatomical Region Laterality Modality Pelvis Radiographic Raisa ging 10/08/2023 9:34 AM CELLOPHANE CASTING MACHINE REPAIRER Impressions 10/08/2023 9:34 AM CELLOPHANE CASTING MACHINE REPAIRER IMPRESSION: IT fracture right proximal femur. > Interpreting Provider: Morales Mccauley MD on 10/08/2023 9:34 AM Narrative 10/08/2023 9:34 AM CELLOPHANE CASTING MACHINE REPAIRER PROCEDURE: XR PELVIS W RIGHT HIP 2VW DATE/TIME OF EXAM: 10/08/2023 9:28 AM CLINICAL INFORMATION: None relevant/not provided if blank. Indication: M25.551: Pain in right hip Views of the pelvis and right hip demonstrate an IT fracture. Varus deformity at the fracture site is noted. There is no dislocation seen. No other fracture is noted. Procedure Note Morales Mccauley MD - 10/08/2023 PROCEDURE: XR PELVIS W RIGHT HIP 2VW DATE/TIME OF EXAM: 10/08/2023 9:28 AM CLINICAL INFORMATION: None relevant/not provided if blank. Indication: M25.551: Pain in right hip Views of the pelvis and right hip demonstrate an IT fracture. Varus deformity at the fracture site is noted. There is no dislocation seen. No other fracture is noted. IMPRESSION: IT fracture right proximal femur. > Interpreting Provider: Morales Mccauley MD on 10/08/2023 9:34 AM Jamey Mahajan MD DIAGNOSTIC IMAGING O RDERABLES * PTT (10/08/2023 9:07 AM CELLOPHANE CASTING MACHINE REPAIRER) Only the most recent of2 resultswithin the time period is included. PTT 24.1 23.0 - 38.4 sec 10/08/2023 9:39 AM CELLOPHANE CASTING MACHINE REPAIRER [facility] Blood BLOOD SPECIMEN / Unknown Venipuncture / Unknown 10/08/2023 9:07 AM CELLOPHANE CASTING MACHINE REPAIRER 10/08/2023 9:26 AM CELLOPHANE CASTING MACHINE REPAIRER Narrative [facility] - 10/08/2023 9:39 AM CELLOPHANE CASTING MACHINE REPAIRER Heparin Therapeutic Range for PTT: 69.0 - 110.0 seconds. Jamey Mahajan MD LAB - COAGULATION OR DERABLES Performing Organization Address City/State/[facility] Co de Phone Number [facility] [address] [place] [address] * (ABNORMAL) PT-INR (10/08/2023 9:07 AM CELLOPHANE CASTING MACHINE REPAIRER) Only the most recent of3 resultswithin the time period is included. PT 12.0(L) 12.1 - 14.8 sec 10/08/2023 9:39 AM CELLOPHANE CASTING MACHINE REPAIRER [facility] INR 0.9 0.9 - 1.1 10/08/2023 9:39 AM CELLOPHANE CASTING MACHINE REPAIRER [facility] Blood BLOOD SPECIMEN / Unknown Venipuncture / Unknown 10/08/2023 9:07 AM CELLOPHANE CASTING MACHINE REPAIRER 10/08/2023 9:26 AM CELLOPHANE CASTING MACHINE REPAIRER Narrative [facility] - 10/08/2023 9:39 AM CELLOPHANE CASTING MACHINE REPAIRER Conventional Warfarin Anticoagulant Therapy: INR Reference Range: 2.0-3.0 Intensive Warfarin Anticoagulant Therapy: INR Reference Range: 2.5-3.5 Jamey Mahajan MD LAB - COAGULATION OR DERABLES Performing Organization Address City/State/[facility] Co de Phone Number [facility] [address] [phone] * LARYNGEAL MASK AIRWAY (09/14/2023 10:47 AM CDT) Narrative Chadwick Fonseca MD - 09/14/2023 10:47 AM CDT Chadwick Fonseca MD 09/14/2023 10:47 AM LMA Placement Procedure/LDA Note: Patient Location: OR. Procedure: LMA. Pretreatment: 100% O2 Induction: standard IV Patient position: sniffing. Mask Ventilation: easy Type: gel LMA Size: 4 Number of Attempts: 1. Placement verified by: bilateral breath sounds and CO2 monitor Dentition unchanged? Yes Staff Section Anesthesia Provider: Chadwick Fonseca MD, Performed the procedure Provider #1: Jerda Mckee MD. Jerad Mckee MD GENERAL ANESTHESIA O RDERABLES * CARDIAC RHYTHM STRIP ORDER (08/23/2023 12:15 AM CDT) Only the most recent of4 resultswithin the time period is included. Narrative 08/23/2023 12:15 AM CDT Ordered by an unspecified provider. Scanned Document CARDIAC SERVICES ORD ERABLES * APHERESIS/TRANSFUSION ORDER (08/23/2023 12:15 AM CDT) Only the most recent of2 resultswithin the time period is included. Narrative 08/23/2023 12:15 AM CDT Ordered by an unspecified provider. Scanned Document NURSING - VITAL SIGN S AND ASSESSMENT * (ABNORMAL) RENAL FUNCTION PANEL (08/18/2023 2:20 AM CDT) Only the most recent of16 resultswithin the time period is included. [facility] Signature Glucose 107(H) 70 - 105 mg/dL 08/18/2023 3:15 AM CDT [facility] Sodium 143 136 - 145 mmol/L 08/18/2023 3:15 AM CDT [facility] Potassium 3.8 3.5 - 5.1 mmol/L 08/18/2023 3:15 AM CDT [facility] Chloride 107 98 - 107 mmol/L 08/18/2023 3:15 AM CDT [facility] CO2 24 22 - 29 mmol/L 08/18/2023 3:15 AM CDT [facility] Calcium 8.8 8.4 - 10.4 mg/dL 08/18/2023 3:15 AM CDT [facility] Anion Gap 12 6 - 16 mmol/L 08/18/2023 3:15 AM CDT [facility] BUN 21 7 - 26 mg/dL 08/18/2023 3:15 AM CDT [facility] Creatinine 0.71 0.57 - 1.11 mg/dL 08/18/2023 3:15 AM CDT [facility] Albumin 2.0(L) 3.4 - 5.0 gm/dL 08/18/2023 3:15 AM CDT [facility] Phosphorus 4.0 2.3 - 4.7 mg/dL 08/18/2023 3:15 AM CDT [facility] eGFR by CKD-EPI >90 >=90 mL/min/1.7 3 m2 08/18/2023 3:15 AM CDT [facility] Blood BLOOD SPECIMEN / Unknown Lab Venipuncture / Unknown 08/18/2023 2:20 AM CDT 08/18/2023 2:51 AM CDT Shane Bull MD LAB - CHEMISTRY ORDE HI [facility] Organization Address City/State/ZIP Co de Phone Number [facility] [address] [place] [address] * PREPARE FFP UNIT(S), 2 Units (08/11/2023 11:17 AM CDT) Unit Description Thawed Plasma 5D [facility] Unit ABO AB [facility] Unit Rh NEG [facility] Product Number [id number] [facility] Unit Donor # [id number] [facility] Unit Status released [facility] Product [facility] [id number] [facility] Blood Type Barcode 2800 [facility] Expiration Date [facility] Unit Description Thawed Plasma 5D [facility] Unit ABO AB [facility] Unit Rh NEG [facility] Product Number [id number] [facility] Unit Donor # [id number] [facility] Unit Status released [facility] Product Code [id number] [facility] Blood Type Barcode 2800 [facility] Expiration Date [facility] Blood Bank BLOOD SPECIMEN / Unknown 08/10/2023 9:51 AM CDT Shane Bull MD LAB - BLOOD BANK ORD ERABLES Performing Organization Address [facility] de Phone Number [facility] [address] [place] [address] * SODIUM URINE RANDOM (08/11/2023 6:59 AM CDT) Sodium Urine 27 mmol/L 08/11/2023 7:25 AM CDT [facility] Urine URINE SPECIMEN OBTAINED BY CLEAN CATCH PROCEDURE / Unknown Collection / Unknown 08/11/2023 6:59 AM CDT 08/11/2023 7:05 AM CDT Shane Bull MD LAB - URINE CHEMISTR Y ORDERABLES Performing Organization Address City/[facility] Co de Phone Number [facility] [address] [place] [address] * CREATININE URINE RANDOM (08/11/2023 6:59 AM CDT) Creatinine Urine 31.33 mg/dL 08/11/2023 7:25 AM CDT [facility] Urine URINE SPECIMEN OBTAINED BY CLEAN CATCH PROCEDURE / Unknown Collection / Unknown 08/11/2023 6:59 AM CDT 08/11/2023 7:05 AM CDT Shane Bull MD LAB - URINE CHEMISTR Y ORDERABLES [facility] [address] [place] [address] * ARTERIAL LINE PERFORMABLE (08/10/2023 2:07 PM CDT) Narrative Kerry Mac - 08/10/2023 2:07 PM CDT Kerry Mac 08/12/2023 11:01 AM Arterial Line Placement Procedure Note Patient Location: OR. Procedure: Arterial Line (02503). Procedure Section Indications: continuous blood pressure monitoring, blood sampling needed and severe bleeding. Consent: informed consent was obtained for the procedure, risks of hemorrhage, hematoma, infection and adverse drug reactions were discussed and a time out was performed for patient safety. Skin Prep: alcohol. Orientation: Left. Site: brachial. Site Identification: ultrasound guided with sterile sleeve and gel. Sterile Technique: small sterile fenestrated drape, sterile gloves, mask and cap. Gauge: 20. Seldinger Technique Used? Yes Number of Attempts: 3. Line Secured with: tape. Procedure Tolerance: performed while patient under general anesthesia. Events: none. Procedure Start Time: 08/10/2023 1:17 PM. Local Anesthetic Used? No Staff Section Anesthesia Provider: Dakota Arnett, SPLUNK ARCHITECT-TEXTILE EXAMINER, Performed the procedure Provider #1: Kushal Cha MD. Additional Comments: The arterial was placed by the vascular team under the direction of Dr. Joaquin. Kushal Cha MD GENERAL ANESTHESIA O RDERABLES * PATHOLOGY TISSUE EXAM (STL) (08/10/2023 2:04 PM CDT) Only the most recent of8 resultswithin the time period is included. Case Report Surgical Pathology Report Case: [id number] Authorizing Provider: Shane Bull MD Collected: 08/10/2023 02:04 PM Ordering Location: [facility] Received: 08/13/2023 09:25 AM Pathologist: Darnell Kinney MD Specimens: A) - Tissue, LEFT LATERAL EDGE B) - Lymph Node, SUPERFICIAL RIGHT INGUINAL LYMPH NODE C) - Tissue, ABSCESS CAVITY 05/23/2024 1:02 PM CDT [facility] Final Diagnosis Soft tissue, left lateral edge, debridement (A): - Metastatic adenocarcinoma, consistent with patient's known endometrioid adenocarcinoma - Abundant tumor necrosis - Carcinoma and necrosis broadly present along margin Skin and soft tissue, s uperficial right, debridement (B): - Metastatic adenocarcinoma in multiple fragments - Carcinoma and necrosis extend to cautery Soft tissue, a bscess cavity, debridement (C): - Metastatic adenocarcinoma (larger fragment) 05/23/2024 1:02 PM [facility] Addendum 2 Results of the requested assay are reproduced in the attached image file. 05/23/2024 1:02 PM [facility] Addendum electronically signed by Darnell Kinney MD on 05/23/2024 at 1:02 PM Addendum 1 A request for molecular testing was received for this patient from Dr. Bull. The test is to be performed on tissue from this case. The case report, slides, and blocks for the cited accession were retrieved from the archives. The pathologist whose signature appears below reviewed the original pathology report, examined candidate H&E slides, and selected block C2 appropriate to the specifications of the ordered molecular analysis. The tissue is being forwarded to the reference laboratory, and the results will be reported in an addendum when available. 05/23/2024 1:02 PM [facility] Addendum electronically signed by Darnell Kinney MD on 05/13/2024 at 2:31 PM Clinical History 68-year-old female with a history of endometrioid adenocarcinoma (2016) metastatic to the right groin and left clavicle status post right inguinal lymphadenectomy. 05/23/2024 1:02 PM [facility] Gross Description The specimens are identified with patient's name and date of . A. Received in formalin, specimen A left lateral edge is a soft tissue fragment (3.7 x 2.5 x 1.6 cm). The margin is inked green, the specimen is sectioned showing paris to white-paris cut surfaces. Sales Assistant Institutional Sales sections submitted in cassette A1-A2. B. Received in formalin, specimen B superficial right is a 10.5 x 7 x 3 cm aggregate pink-yellow soft tissues and overlying skin. A possible lymph node (2.5 x 1.2 x 0.8 cm) is identified. The remaining cut surfaces are yellow-white and fibrofatty. Sales Assistant Institutional Sales sections submitted as follows: B1 - one lymph node bisected, possible B2-B5 - fibrofatty tissues. C. Received in formalin, specimen C abscess cavity are two disrupted yellow to white paris tissues (2 x 1.5 x 0.3 cm and 6.5 x 4 x 4 cm). The larger tissue sectioned showing diffusely two paris-white, heterogenous cut surfaces with peripheral adipose tissue. Sales Assistant Institutional Sales sections are submitted in cassette as follows: C1 - smaller fragment en toto, C2 - larger fragment sampled. LJ 05/23/2024 1:02 PM [facility] Microscopic Description Microscopic examination substantiates the above diagnosis. 05/23/2024 1:02 PM [facility] Pathologist Location at [facility] 05/23/2024 1:02 PM [facility] Disclaimer All histochemical and/or immunohistochemical results are interpreted with controls that demonstrate appropriate staining reactions before reporting results. Note on use of immunocytochemistry reagents: This test was developed and its performance characteristic determined by [facility], Department of Laboratory Medicine. It has not been cleared or approved by the U.S. Food and Drug Administration (FDA). The FDA has determined that such clearance or approval is not necessary. The test is used for clinical purpose. It should not be regarded as investigational or for research. This laboratory is certified to perform high complexity testing. The performance characteristics of the IHC/GREGORY assays have been validated on formalin-fixed paraffin embedded tissues only. The assays have not been validated on decalcified tissues. Results should be interpreted with caution. 05/23/2024 1:02 PM T [facility] Embedded Images 05/23/2024 1:02 PM T [facility] Pathology/Cytology TISSUE SPECIMEN / Unknown 08/10/2023 2:04 PM CDT 08/13/2023 9:25 AM CDT Comment:Pre-op diagnosis: Diagnosis unknown [R69] Miscellaneous samples (specimen) ENTIRE LYMPH NODE / Unknown 08/10/2023 2:06 PM CDT 08/13/2023 9:25 AM CDT Comment:Pre-op diagnosis: Diagnosis unknown [R69] Miscellaneous samples (specimen) TISSUE SPECIMEN / Unknown 08/10/2023 2:07 PM CDT 08/13/2023 9:25 AM CDT Comment:Pre-op diagnosis: Diagnosis unknown [R69] Shane Bull MD LAB - PATHOLOGY/CYTO LOGY ORDERABLES [facility] [address] [id number] * ETT LINE PERFORMABLE (08/10/2023 1:39 PM CDT) Narrative Dakota Arnett APRN-CRNA - 08/10/2023 1:39 PM CDT Dakota Arnett APRN-CRNA 08/10/2023 1:40 PM Endotracheal Tube Placement: Patient Location: OR. Intubation Event Date/Time: 08/10/2023 12:42 PM Procedure: intubation (02625). Procedure Section: Sedation: under general anesthesia. Indications for Airway Management: anesthesia Induction: standard IV Patient Position: sniffing and supine Mask Ventilation: easy with oral airway. Blade Type: Alexus Blade Size: 4 Laryngoscopy View: grade 1 (full cords) Intubation Adjuncts: stylet Tube: endotracheal tube Placement: oral Tube type: cuff - inflated Tube Size (MM): 7 Depth of Insertion (CM): 22 Measured From: lips Cuff Inflated With: air Number of Attempts: 1. Placement Verified By: direct visualization, bilateral breath sounds, CO2 monitor and chest auscultation Tube secured with: adhesive tape. Dentition unchanged? Yes Difficult Airway? No. Procedure Start Time: 08/10/2023 12:42 PM. Staff Section Anesthesia Provider: Dakota Arnett APRN-CRNA, Performed the procedure Provider #1: Kushal Cha MD. Kushal Cha MD GENERAL ANESTHESIA O RDERABLES * PATHOLOGY/CYTOLOGY REPORT ORDER (08/10/2023) 08/10/2023 Narrative 08/10/2023 Ordered by an unspecified provider. Scanned Document LAB - PATHOLOGY/CYTO LOGY ORDERABLES * (ABNORMAL) CANCER ANTIGEN (CA)125 BLOOD (07/24/2023 11:17 AM CDT) Only the most recent of59 resultswithin the time period is included. CA 125 122.5(H) Female: 0-35 U/mL U/mL 07/24/2023 12:48 PM CDT [facility] Blood BLOOD SPECIMEN / Unknown Venipuncture / Unknown 07/24/2023 11:17 AM CDT 07/24/2023 11:59 AM CDT Narrative [facility] - 07/24/2023 12:48 PM CDT [employer] chemiluminescent microparticle immunoassay (CMIA) Values obtained with different assay methods or kits cannot be used interchangeably. Results cannot be interpreted as absolute evidence of the presence or absence of malignant disease. Shane Bull MD LAB - CHEMISTRY RICARDO DO [facility] Organization Address City/State/[facility] Co de Phone Number [facility] [address] [place], [place] [id number] * CT ABDOMEN PELVIS W CONTRAST (07/09/2023 1:54 PM CDT) Only the most recent of3 resultswithin the time period is included. Anatomical Region Laterality Modality Abdomen, Pelvis Computed Tomogra phy 07/09/2023 2:09 PM CDT Impressions 07/09/2023 2:13 PM CDT IMPRESSION: There continues to be an abscess/phlegmon involving the subcutaneous tissues involving the right inguinal region. Overall it does not appear to be significantly changed in size. > Interpreting Provider: Nikita Lezama MD on 07/09/2023 2:13 PM Narrative 07/09/2023 2:13 PM CDT Procedure: CT ABDOMEN PELVIS W CONTRAST Exam Date: 07/09/2023 1:58 PM Location: [facility] CT abdomen and pelvis with IV contrast Indication: T81.49XA: Infection following a procedure, other surgical site, initial encounter Technique: CT examination of the abdomen and pelvis was performed from the lung bases through the pubis symphysis after the administration of oral and IV contrast. Sagittal and coronal reconstructions were performed. Contrast: 100 cc of Isovue-370 was utilized. FINDINGS: The study is compared to the exam from April 2023. The lung bases are clear of infiltrate. There are degenerative changes of the spine. There are degenerative changes of both hips. There is no liver mass. There is no intrahepatic biliary dilatation. No gallstones are seen within the gallbladder. The pancreas is unremarkable. The spleen is unremarkable. There is no adrenal mass. There is no hydronephrosis. There are no renal calculi. There is no perinephric fat stranding. There is no renal mass. The aorta is normal in caliber. The IVC is normal in caliber. There is no retroperitoneal adenopathy. There is no mesenteric adenopathy. There is a small hiatal hernia. There is no gastric wall thickening. The small bowel loops in the upper abdomen are nondistended with no bowel wall thickening. Oral contrast reaches the colon. The colonic structures within the upper abdomen are normal in caliber with no bowel wall thickening. Within the pelvis: The appendix is not visualized to advantage. However there is no CT evidence for acute appendicitis. The bladder is nondistended. The patient is status post hysterectomy. There are no adnexal masses. There is no free fluid within the pelvis. The rectosigmoid colon is unremarkable. There continues to be a phlegmon/abscess involving the subcutaneous tissues in the right inguinal region extending to the skin surface. It does not appear to be significantly changed in size. There is no surrounding bony involvement and there does appear to be a normal fat plane around the surrounding musculature and vascular structures. There is no inguinal adenopathy. There is no pelvic adenopathy. Procedure Note Nikita Lezama MD - 07/09/2023 Procedure: CT ABDOMEN PELVIS W CONTRAST Exam Date: 07/09/2023 1:58 PM Location: [facility] CT abdomen and pelvis with IV contrast Indication: T81.49XA: Infection following a procedure, other surgical site, initial encounter Technique: CT examination of the abdomen and pelvis was performed fromthe lung bases through the pubis symphysis after the administration of oraland IV contrast. Sagittal and coronal reconstructions were performed. Contrast: 100 cc of Isovue-370 was utilized. FINDINGS: The study is compared to the exam from April 2023. The lung bases are clear of infiltrate. There are degenerative changes of thespine. There are degenerative changes of both hips. There is no liver mass. There is no intrahepatic biliary dilatation.No gallstones are seen within the gallbladder. The pancreas isunremarkable. The spleen is unremarkable. There is no adrenal mass. There is no hydronephrosis. There are no renal calculi. There is no perinephric fat stranding. There is no renal mass. The aorta is normal in caliber. The IVC is normal in caliber. Thereis no retroperitoneal adenopathy. There is no mesenteric adenopathy. There is a small hiatal hernia. There is no gastric wall thickening.The small bowel loops in the upper abdomen are nondistended with no bowelwall thickening. Oral contrast reaches the colon. The colonic structures within the upper abdomen are normal in caliber with no bowel wall thickening. Within the pelvis: The appendix is not visualized to advantage.However there is no CT evidence for acute appendicitis. The bladder is nondistended. The patient is status post hysterectomy. There are no adnexal masses. There is no free fluid within the pelvis. The rectosigmoid colon is unremarkable. There continues to be a phlegmon/abscess involving the subcutaneoustissues in the right inguinal region extending to the skin surface. It does not appear to be significantly changed in size. There is no surrounding bony involvement and there does appear to be a normal fat plane around the surrounding musculature and vascular structures. There is no inguinal adenopathy. There is no pelvic adenopathy. IMPRESSION: There continues to be an abscess/phlegmon involving the subcutaneous tissues involving the right inguinal region. Overall it does not appearto be significantly changed in size. > Interpreting Provider: Nikita Lezama MD on 07/09/2023 2:13 PM Mira Gallardo MD CT ORDERABLES * CULTURE BLOOD (04/29/2023 3:20 PM CDT) Only the most recent of2 resultswithin the time period is included. Culture No growth day 5 CLEMENTE 05/04/2023 9:01 PM CDT [facility] Blood PERIPHERAL BLOOD / Unknown Lab Venipuncture / Unknown 04/29/2023 3:20 PM CDT 04/29/2023 3:53 PM CDT Cholo Rincon MD LAB - MICROBIOLOGY O RDERABLES Performing Organization Address City/[facility]/ZIP Co de Phone Number [facility] [address] [place] [address], [facility] [phone] * (ABNORMAL) CULTURE WOUND+GRAM STAIN (04/26/2023 12:01 PM CDT) Only the most recent of3 resultswithin the time period is included. Culture Heavy Schaalia turicensis(A) 04/29/2023 5:35 AM CDT [facility] Culture Light normal skin han 04/29/2023 5:35 AM CDT [facility] Gram Stain Moderate Gram-positive cocci 04/29/2023 5:35 AM CDT [facility] Gram Stain Heavy Red blood cells 04/29/2023 5:35 AM CDT [facility] Gram Stain Moderate Gram-negative bacilli 04/29/2023 5:35 AM CDT [facility] Gram Stain Moderate Polymorphonuclear cells 04/29/2023 5:35 AM CDT [facility] Microbiology LESION SPECIMEN / Unknown Collection / Unknown 04/26/2023 12:01 PM CDT 04/26/2023 12:10 PM CDT Rob Nelson MD LAB - MICROBIO LOGY ORDERABLES Performing Organization Address [facility] Co de Phone Number [facility] [address] [place] [address], [facility] [phone] * LACTIC ACID BLOOD REFLEX TO REPEAT (04/25/2023 10:18 PM CDT) Lactic Acid 1.7 <=2 mmol/L 04/25/2023 10:38 PM CDT [facility] Blood BLOOD SPECIMEN / Unknown Venipuncture / Unknown 04/25/2023 10:18 PM CDT 04/25/2023 10:24 PM CDT Rob Lynn PA-C LAB - CHEMISTRY ORD ERABLES Performing Organization Address City/[facility]/ZIP Co de Phone Number [facility] [address] [place] [address] * OCT (01/12/2023 2:16 PM CELLOPHANE CASTING MACHINE REPAIRER) Anatomical Region Laterality Modality Other 01/12/2023 2:16 PM CELLOPHANE CASTING MACHINE REPAIRER Gene Rehman OD OPHTHALMOLOGY SERVIC ES ORDERABLES * CULTURE ANAEROBE (01/02/2023 8:30 AM CELLOPHANE CASTING MACHINE REPAIRER) Culture No anaerobic organisms isolated CLEMENTE 01/07/2023 1:54 PM CELLOPHANE CASTING MACHINE REPAIRER [facility] Microbiology SPECIMEN FROM ABSCESS / Unknown Collection / Unknown 01/02/2023 8:30 AM CELLOPHANE CASTING MACHINE REPAIRER 01/02/2023 9:27 AM CELLOPHANE CASTING MACHINE REPAIRER Comment:Pre-op diagnosis: Diagnosis unknown [R69] Narrative [facility] - 01/07/2023 1:54 PM CELLOPHANE CASTING MACHINE REPAIRER Surgical Description: Right Groin Abscess Shane Bull MD LAB - MICROBIOLOGY O RDERABLES Performing Organization Address City/State/[facility] Co de Phone Number [facility] [address] [phone] * LARYNGEAL MASK AIRWAY (01/02/2023 8:14 AM CELLOPHANE CASTING MACHINE REPAIRER) Narrative Kristin Paz APRN-CRNA - 01/02/2023 8:14 AM CELLOPHANE CASTING MACHINE REPAIRER Kristin Paz APRN-CRNA 01/02/2023 8:15 AM LMA Placement Procedure/LDA Note: Patient Location: OR. LMA Insertion Date/Time: 01/02/2023 7:56 AM Procedure: LMA. Pretreatment: 100% O2 Induction: standard IV Patient position: supine. Mask Ventilation: not attempted Type: LMA Size: 4 Number of Attempts: 1. Placement verified by: bilateral breath sounds, chest auscultation and CO2 monitor Dentition unchanged? Yes Procedure Start Time: 01/02/2023 7:56 AM. Staff Section Anesthesia Provider: Kristin Paz APRN-CRNA, Performed the procedure Milan Chinchilla MD GENERAL ANESTHESIA ORDERABLES * US LYMPH NODE BIOPSY (10/09/2022 12:38 PM CELLOPHANE CASTING MACHINE REPAIRER) Only the most recent of2 resultswithin the time period is included. Anatomical Region Laterality Modality Breast, Upper Extremity, Pelvis, Abdomen Ultrasound 10/25/2022 11:4 9 AM CELLOPHANE CASTING MACHINE REPAIRER Impressions 10/27/2022 4:45 PM CELLOPHANE CASTING MACHINE REPAIRER Impression: Successful ultrasound-guided core biopsy of right inguinal lymph node, as described above. I, Dr. Starks, was present and performed/supervised the entire procedure. Moderate sedation on this adult patient was ordered by me, administered intravenously in my presence, and monitored by the procedure nurse as an independent trained observer who was present throughout the procedure. The following parameters were monitored: oxygen saturation, heart rate, blood pressure, and response to care. Intra-service sedation start time was 1151 and end time was 1217 during which I was present. Total physician intra-service sedation time was 15 minutes. For details on pre moderate sedation and post moderate sedation patient evaluation, please review the evaluation forms in [facility]. For details on monitored clinical parameters during the intra-service sedation time, please review the procedure nurse documentation in [facility]. > Interpreting Provider: Joyce Starks MD on 10/27/2022 4:45 PM Narrative 10/27/2022 4:45 PM CELLOPHANE CASTING MACHINE REPAIRER History: Enlarged right inguinal lymph node Operators: 1.Dr. Starks, Attending Physician Anesthesia: 1.Local anesthesia - 10 mL of 1% lidocaine 2.Intravenous conscious sedation - Versed 1 mg and Fentanyl 50 mcg Procedure: 1.Limited ultrasound evaluation of the right groin. 2.Ultrasound-guided aspiration and core biopsy of right inguinal lymph node. Procedure in detail: The procedure, risk, and possible complications were explained to the patient in detail, and informed consent was obtained. The patient was placed in a supine position on the ultrasound table and a limited multiplanar ultrasound evaluation of the right groin was performed, demonstrating mixed cystic and solid heterogeneous enlarged right inguinal lymph node. A percutaneous access site was marked on the skin. The marked site and skin around the region of interest was prepped and draped in sterile fashion. Local anesthesia was provided with 1% Lidocaine. A 17 gauge coaxial needle system was advanced in stages under ultrasound guidance. The needle entry was documented. With a 22-gauge spinal needle placed coaxially, the cystic component was aspirated and sent for cytology. The spinal needle was removed and An 18-gauge biopsy gun was then placed coaxially through the introducer needle, 3 core samples were acquired . The samples were sent to the pathology service. Post-biopsy limited ultrasound evaluation did not show any immediate complications such as major hemorrhage. The patient tolerated the procedure well and was transferred to the holding area in stable condition. Procedure Note Joyce Starks MD - 10/27/2022 History: Enlarged right inguinal lymph node Operators: 1.Dr. Starks, Attending Physician Anesthesia: 1.Local anesthesia - 10 mL of 1% lidocaine 2.Intravenous conscious sedation - Versed 1 mg and Fentanyl 50 mcg Procedure: 1.Limited ultrasound evaluation of the right groin. 2.Ultrasound-guided aspiration and core biopsy of right inguinal lymph node. Procedure in detail: The procedure, risk, and possible complications were explained to the patient in detail, and informed consent was obtained. The patient was placed in a supine position on the ultrasound table and a limited multiplanar ultrasound evaluation of the right groin was performed, demonstrating mixed cystic and solid heterogeneous enlarged rightinguinal lymph node. A percutaneous access site was marked on the skin. The marked site and skin around the region of interest was prepped and draped in sterile fashion. Local anesthesia was provided with 1%Lidocaine. A 17 gauge coaxial needle system was advanced in stages under ultrasound guidance. The needle entry was documented. With a 22-gauge spinal needle placed coaxially, the cystic component was aspirated and sent forcytology. The spinal needle was removed and An 18-gauge biopsy gun was then placed coaxially through the introducer needle, 3 core samples were acquired .The samples were sent to the pathology service. Post-biopsy limited ultrasound evaluation did not show any immediate complications such as major hemorrhage. The patient tolerated theprocedure well and was transferred to the holding area in stable condition. Impression: Successful ultrasound-guided core biopsy of right inguinal lymph node, as described above. I, Dr. Starks, was present and performed/supervised the entire procedure. Moderate sedation on this adult patient was ordered by me, administered intravenously in my presence, and monitored by the procedure nurse as an independent trained observer who was present throughout the procedure.The following parameters were monitored: oxygen saturation, heart rate,blood pressure, and response to care. Intra-service sedation start time [id number] and end time was 1217 during which I was present. Total physician intra-service sedation time was 15 minutes. For details on pre moderate sedation and post moderate sedation patient evaluation, please reviewthe evaluation forms in [facility]. For details on monitored clinical parameters during the intra-service sedation time, please review the procedurenurse documentation in [facility]. > Interpreting Provider: Joyce Starks MD on 10/27/2022 4:45 PM Shane Bull MD US ORDERABLES * CULTURE FUNGUS OTHER+FUNGUS SMEAR (10/09/2022 12:04 PM CELLOPHANE CASTING MACHINE REPAIRER) Culture No fungus isolated CLEMENTE 11/06/2022 6:58 AM CELLOPHANE CASTING MACHINE REPAIRER [facility] Fungus Stain No yeast or hyphae seen 11/06/2022 6:58 AM CELLOPHANE CASTING MACHINE REPAIRER [facility] Microbiology LYMPH NODE SPECIMEN / Unknown Collection / Unknown 10/09/2022 12:04 PM CELLOPHANE CASTING MACHINE REPAIRER 10/09/2022 12:57 PM CELLOPHANE CASTING MACHINE REPAIRER Joyce Starks MD LAB - MICROBIOLOGY ORDERABLES Performing Organization Address City/State/[facility] Co de Phone Number [facility] [address] [place], [place] [id number] [place] [address] * CYTOLOGY NON-SAFETY AND SECURITY MANAGER PANEL (STL) (10/09/2022 12:03 PM CELLOPHANE CASTING MACHINE REPAIRER) Only the most recent of2 resultswithin the time period is included. Case Report Cytology Non Kid Club Attendant Report Case: [id number] Authorizing Provider: Shane Bull MD Collected: 10/09/2022 12:03 PM [facility] [facility] Received: 10/09/2022 01:37 PM Pathologist: Ziyad Forte MD Specimen: Cyst Fluid, rt inguinal LN 10/11/2022 3:19 PM CELLOPHANE CASTING MACHINE REPAIRER [facility] Final Diagnosis Lymph node, right inguinal, ultrasound-guided aspiration: 1. Satisfactory for evaluation 2. 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 10/11/2022 3:[address] [facility] Gross Description 3 mL of reddish-orange fluid are received from which 1 thin prep and 1 cell block are prepared for cytologic evaluation. 10/11/2022 3:[address] [facility] Microscopic Description The atypical cellular groups have a close histomorphologic resemblance to those seen in the FNA biopsy and needle core biopsy obtained during the same procedure ([id number] and [id number], respectively). See the report for [id number] for additional information. 10/11/2022 3:[address] [facility] Disclaimer All histochemical and/or immunohistochemical results are interpreted with controls that demonstrate appropriate staining reactions before reporting results. Note on use of immunocytochemistry reagents: This test was developed and its performance characteristic determined by [facility], Department of Laboratory Medicine. It has not been cleared or approved by the U.S. Food and Drug Administration (FDA). The FDA has determined that such clearance or approval is not necessary. The test is used for clinical purpose. It should not be regarded as investigational or for research. This laboratory is certified to perform high complexity testing. The performance characteristics of the IHC/GREGORY assays have been validated on formalin-fixed paraffin embedded tissues only. The assays have not been validated on decalcified tissues. Results should be interpreted with caution. 10/11/2022 3:[address] [facility] Embedded Images 10/11/2022 3:[address] [facility] Pathology/Cytolo gy CYST FLUID SPECIMEN / Unknown Collection / Unknown 10/09/2022 12:03 PM CELLOPHANE CASTING MACHINE REPAIRER 10/09/2022 1:37 PM CELLOPHANE CASTING MACHINE REPAIRER Comment:Aspiration of rt ing uinal LN/ mass in patient with ovarian cancer Shane Bull MD LAB - PATHOLOGY/CYTO LOGY ORDERABLES [facility] [address] [place] [address] * CULTURE FLUID+GRAM STAIN (10/09/2022 12:03 PM CELLOPHANE CASTING MACHINE REPAIRER) Culture No growth CLEMENTE 10/12/2022 11:32 PM [facility] Gram Stain Light Polymorphonuclear cells 10/12/2022 11:32 PM [facility] Gram Stain No organisms seen 022 11:32 PM [facility] Fluid PERITONEAL FLUID / Unknown Collection / Unknown 10/09/2022 12:03 PM CELLOPHANE CASTING MACHINE REPAIRER 10/09/2022 12:57 PM CELLOPHANE CASTING MACHINE REPAIRER Shane Bull MD LAB - MICROBIOLOGY O RDERABLES [facility] [address] [place] [address] [phone] * FINE NEEDLE ASPIRATION (STL) (10/09/2022 12:02 PM CELLOPHANE CASTING MACHINE REPAIRER) Case Report Fine Needle Aspirati on Report Case: [id number] Authorizing Provider: Shane Bull MD Collected: 10/09/2022 12:02 PM Ordering Location: [facility] Received: 10/09/2022 12:25 PM Pathologist: Ziyad Forte MD Specimen: Lymph Node, right inguinal lymph node 2 3:20 PM CELLOPHANE CASTING MACHINE REPAIRER [facility] Final Diagnosis Lymph node, right inguinal, ultrasound-guided fine-needle aspiration: 1. Satisfactory for evaluation 2. Scant atypical cells suspicious for malignancy in a background of necrosis and inflammation 2 3:[address] 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 2 3:20 PM CELLOPHANE CASTING MACHINE REPAIRER [facility] Gross Description In ultrasound, Dr. Forte assisted Dr. Cook in rapid on-site evaluation (ARYAN) of a right inguinal lymph node. Dr. Cook provided 1 pass from the right angle lymph node by ultrasound-guided fine-needle aspiration biopsy from which 2 smears (1 Diff-Quik stained and 1 Papanicolaou stained) were prepared. Rinses from the passes were submitted for a cell block. Lymph node, right inguinal, ultrasound-guided fine-needle aspiration biopsy: 1. Inflammation and necrosis 2. Suggest sampling wall to get more solid tissue for biopsy 3. Diagnosis discussed with Dr. Cook on 10/09/2022 at 12:[address] Forte 2 3:[address] [facility] Microscopic Description Rare atypical cells are identified that are histomorphologically similar to those seen in the concurrent needle core biopsy (see [id number]). 2 3:[address] [facility] Disclaimer All histochemical and/or immunohistochemical results are interpreted with controls that demonstrate appropriate staining reactions before reporting results. Note on use of immunocytochemistry reagents: This test was developed and its performance characteristic determined by [facility], Department of Laboratory Medicine. It has not been cleared or approved by the U.S. Food and Drug Administration (FDA). The FDA has determined that such clearance or approval is not necessary. The test is used for clinical purpose. It should not be regarded as investigational or for research. This laboratory is certified to perform high complexity testing. The performance characteristics of the IHC/GREGORY assays have been validated on formalin-fixed paraffin embedded tissues only. The assays have not been validated on decalcified tissues. Results should be interpreted with caution. 2 3:[address] [facility] Embedded Images 2 3:[address] [facility] Pathology/Cytolo gy ENTIRE LYMPH NODE / Unknown 10/09/2022 12:02 PM CELLOPHANE CASTING MACHINE REPAIRER 10/09/2022 12:25 PM CELLOPHANE CASTING MACHINE REPAIRER Shane Bull MD LAB - PATHOLOGY/CYTO LOGY ORDERABLES Performing Organization Address City/State/[facility] Co de Phone Number [facility] [address] [place], [place] [phone] * Corneal Topography (09/20/2022 11:14 AM CDT) Anatomical Region Laterality Modality Other 09/20/2022 11:1 4 AM CDT Abhishek Crews MD OPHTHALMOLOGY SERVIC ES ORDERABLES * IOL Master ([employer]) (09/20/2022 10:36 AM CDT) Anatomical Region Laterality Modality Other 09/20/2022 10:3 6 AM CDT Abhishek Crews MD OPHTHALMOLOGY SERVIC ES ORDERABLES * REF LAB-SPECIMEN STATUS REPORT (04/12/2022 9:07 AM CDT) Specimen Status Report NOT NEEDED [facility] INSURANCE BILL Comment: Test not performed. Sample contaminated with EDTA which is not suitable for test ordered. TEST: [id number] Comp. Metabolic Panel [phone] [phone] Magnesium Ancillary determined the test is not needed. 04/12/2022 9:07 AM CDT 04/12/2022 Narrative Resulting Agency Comment Lab Testing performed at: [facility] [facility] [place] [address] [facility] [phone] Shane Bull MD LAB - CHEMISTRY RICARDO DO [employer] INSURANCE BILL [address] [place] [address] * CT BONE BIOPSY (07/27/2021 10:51 AM CDT) Anatomical Region Laterality Modality Computed Tomogra phy 07/27/2021 3:56 PM CDT Narrative 07/28/2021 7:18 AM CDT History: 66-year-old female with a history of endometrial adenocarcinoma and an expansile, FDG avid mass in the medial aspect of the left clavicle. The patient presents to vascular and interventional radiology for bone biopsy. Operators: 1. Dr. Haritha Garcia, Attending Physician 2. Dr. Moose Gannon, IR Fellow Anesthesia: 1. Local anesthesia - 10 mL of 1% lidocaine 2. Intravenous conscious sedation - Versed 1 mg and Fentanyl 100 mcg Procedure: 1. Limited non-contrast CT of the lower neck and upper chest. 2. CT-guided bone biopsy of a left clavicular head mass. 3. Post-procedure limited non-contrast CT of the lower neck and upper chest. Procedure in detail: The procedure, risks, and possible complications were explained to the patient in detail, and informed consent was obtained. The patient was placed in a supine position on the CT table and a radio-opaque grid was placed over the region of interest. Limited non-contrast CT of the lower neck and upper chest showed an expansile, destructive lesion in the head of the left clavicle. A percutaneous entry site was marked on the skin to access the medial aspect of the left clavicle. The patient received intravenous Versed and Fentanyl for conscious sedation. A qualified radiology nurse monitored the patient?s vital signs throughout the procedure. The marked site and skin around the region was prepped and draped in a sterile fashion. Local anesthesia was provided with 1% Lidocaine. A 11 gauge needle system was advanced in stages under CT guidance using a power drill on-control system. 2 core biopsy samples were obtained and sent to the pathology service. Additionally, 3 core biopsies were taken with an 18-gauge soft tissue biopsy device. Final post-biopsy imaging did not show any immediate complications. The patient tolerated the procedure well and was transferred to the holding area in stable condition. Impression: CT-guided bone biopsy of a left clavicular head mass, as described above. The pathology report is pending at the time of this dictation. I, Dr. Garcia, was present and performed/supervised the entire procedure. Moderate sedation on this adult patient was ordered by me, administered intravenously in my presence, and monitored by the procedure nurse as an independent trained observer who was present throughout the procedure. The following parameters were monitored: oxygen saturation, heart rate, blood pressure, and response to care. Intra-service sedation start time was 1001 and end time was 1035 during which I was present. Total physician intra-service sedation time was 34 minutes. For details on pre moderate sedation and post moderate sedation patient evaluation, please review the evaluation forms in [facility]. For details on monitored clinical parameters during the intra-service sedation time, please review the procedure nurse documentation in [facility]. Dictated by Carlo Gannon D.O. (resident physician). Dictated by Carlo Gannon on 07/27/2021 4:00 PM IAndrew, have personally reviewed the images and I agree with this report. *Reading Radiologist: Andrew Garcia on 07/28/2021 at 7:18 AM Procedure Note Andrew Garcia MD - 07/28/2021 History: 66-year-old female with a history of endometrial adenocarcinoma and an expansile, FDG avid mass in the medial aspect of the left clavicle. The patient presents to vascular and interventional radiology for bone biopsy. Operators: 1. Dr. Haritha Garcia, Attending Physician 2. Dr. D. Gannon, IR Fellow Anesthesia: 1. Local anesthesia - 10 mL of 1% lidocaine 2. Intravenous conscious sedation - Versed 1 mg and Fentanyl 100 mcg Procedure: 1. Limited non-contrast CT of the lower neck and upper chest. 2. CT-guided bone biopsy of a left clavicular head mass. 3. Post-procedure limited non-contrast CT of the lower neck and upper chest. Procedure in detail: The procedure, risks, and possible complications were explained to the patient in detail, and informed consent was obtained. The patient was placed in a supine position on the CT table and a radio-opaque grid was placed over the region of interest. Limited non-contrast CT of the lower neck and upper chest showed an expansile, destructive lesion in the head of the left clavicle. A percutaneous entry site was marked on the skin to access the medial aspect of the left clavicle. The patient received intravenous Versed and Fentanyl for conscious sedation. A qualified radiology nurse monitored the patient?s vital signs throughout the procedure. The marked site and skin around the region was prepped and draped in a sterile fashion. Local anesthesia was provided with 1% Lidocaine. A 11 gauge needle system was advanced in stages under CT guidance using a power drill on-control system. 2 core biopsy samples were obtained and sent to the pathology service. Additionally, 3 core biopsies were taken with an 18-gauge soft tissue biopsy device. Final post-biopsy imaging did not show any immediate complications. The patient tolerated the procedure well and was transferred to the holding area in stable condition. Impression: CT-guided bone biopsy of a left clavicular head mass, as described above. The pathology report is pending at the time of this dictation. Migel, Dr. Garcia, was present and performed/supervised the entire procedure. Moderate sedation on this adult patient was ordered by me, administered intravenously in my presence, and monitored by the procedure nurse as an independent trained observer who was present throughout the procedure. The following parameters were monitored: oxygen saturation, heart rate, blood pressure, and response to care. Intra-service sedation start time was 1001 and end time was 1035 during which I was present. Total physician intra-service sedation time was 34 minutes. For details on pre moderate sedation and post moderate sedation patient evaluation, please review the evaluation forms in [facility]. For details on monitored clinical parameters during the intra-service sedation time, please review the procedure nurse documentation in [facility]. Dictated by Carlo Gannon D.O. (resident physician). Dictated by Carlo Gannon on 07/27/2021 4:00 PM I, Andrew Garcia, have personally reviewed the images and I agree with this report. *Reading Radiologist: Andrew Garcia on 07/28/2021 at 7:18 AM Shane Bull MD CT ORDERABLES * CT NECK SOFT TISSUE W CONT (06/07/2021 10:25 AM CDT) Anatomical Region Laterality Modality Head Computed Tomogra phy 06/07/2021 12:5 1 PM CDT Impressions 06/07/2021 12:[address] of the neck. No abnormality is seen corresponding to patient's lump. *Reading Radiologist: Nikita Lezama on 06/07/2021 at 12:53 PM Narrative 06/07/2021 12:[address] neck with IV contrast INDICATION: History of adenocarcinoma of the endometrium. Left-sided neck mass. TECHNIQUE: Helical images were obtained from the aortic arch through the orbits. Sagittal and coronal reconstructions were performed. Contrast: 80 cc of Isovue-370 was utilized. FINDINGS: A marker was placed over patient's mass within the left neck. There is no underlying abnormality. The nasopharynx, hypopharynx, oropharynx and laryngeal structures appear normal. The thyroid gland is unremarkable. The visualized lung ramos are clear. There is a port over the right side of the chest. Supraclavicular regions are unremarkable. The submandibular glands are normal. The parotid glands are normal. No adenopathy is seen within the head or neck. The paranasal sinuses are well aerated. The orbits appear normal. No abnormal contrast enhancement is seen within the brain parenchyma. Procedure Note Nikita Lezama MD - 06/07/2021 CT neck with IV contrast INDICATION: History of adenocarcinoma of the endometrium. Left-sided neck mass. TECHNIQUE: Helical images were obtained from the aortic arch through the orbits. Sagittal and coronal reconstructions were performed. Contrast: 80 cc of Isovue-370 was utilized. FINDINGS: A marker was placed over patient's mass within the left neck. There is no underlying abnormality. The nasopharynx, hypopharynx, oropharynx and laryngeal structures appear normal. The thyroid gland is unremarkable. The visualized lung ramos are clear. There is a port over the right side of the chest. Supraclavicular regions are unremarkable. The submandibular glands are normal. The parotid glands are normal. No adenopathy is seen within the head or neck. The paranasal sinuses are well aerated. The orbits appear normal. No abnormal contrast enhancement is seen within the brain parenchyma. IMPRESSION Unremarkable CT of the neck. No abnormality is seen corresponding to patient's lump. *Reading Radiologist: Nikita Lezama on 06/07/2021 at 12:53 PM [address] MD [address] ORDERABLES * CREATININE BLOOD - POINT OF CARE (IP) (06/07/2021 10:15 AM CDT) Only the most recent of4 resultswithin the time period is included. Creatinine POCT 0.79 0.7 - 1.2 mg/dL [facility] POCT TESTING QC Verified Yes Yes [facility] POC T TESTING Blood BLOOD SPECIMEN / Unknown 06/07/2021 10:15 AM CDT Shane Bull MD LAB - POINT OF CARE ORDERABLES Performing Organization Address City/[facility]/ZIP Co de Phone Number [facility] POCT TESTING [address] [phone] * TSH HI LOW REFLEX FREE T4 (03/15/2021 8:48 AM CDT) TSH 1.690 0.450 - 4.500 uIU/mL [facility] INSURANCE BILL Comment:FASTING Blood BLOOD SPECIMEN / Unknown 03/15/2021 8:48 AM CDT 03/15/2021 Narrative Resulting Agency Comment [facility] performed at: [facility] [address] [facility] [phone] Shane Bull MD LAB - CHEMISTRY RICARDO DO [facility] INSURANCE BILL [address] [place] [address] * LARYNGEAL MASK AIRWAY (11/16/2020 10:30 AM CELLOPHANE CASTING MACHINE REPAIRER) Narrative Lilo Cifuentes APRN-CRNA - 11/16/2020 10:30 AM CELLOPHANE CASTING MACHINE REPAIRER Lilo Cifuentes APRN-CRNA 11/16/2020 10:31 AM LMA Placement Procedure/LDA Note: Patient Location: OR. Procedure: LMA. Pretreatment: 100% O2 Induction: standard IV Patient position: sniffing. Mask Ventilation: easy Type: LMA Size: 4 Number of Attempts: 1. Placement verified by: direct visualization, bilateral breath sounds and CO2 monitor Staff Section Anesthesia Provider: Lilo Cifuentes APRN-CRNA, Performed the procedure Additional Comments: Atraumatic placement. All mouth, lips, tongue, teeth same condition as baseline. Kushal Cha MD GENERAL ANESTHESIA O RDERABLES * BLOOD TYPE VERIFICATION (11/15/2020 8:30 AM CELLOPHANE CASTING MACHINE REPAIRER) Only the most recent of2 resultswithin the time period is included. ABO Rh A POS 11/15/2020 9:0 0 AM CELLOPHANE CASTING MACHINE REPAIRER [facility] B[facility] LAB Blood Bank BLOOD SPECIMEN / Unknown Lab Venipuncture / Unknown 11/15/2020 8:30 AM CELLOPHANE CASTING MACHINE REPAIRER 11/15/2020 8:30 AM CELLOPHANE CASTING MACHINE REPAIRER Shane Bull MD LAB - BLOOD BANK ORD ERABLES [facility] BLO[facility] LAB [address] [phone] * SARS-COV-2 (COVID-19) PRE-SURGICAL/PROCEDURE (11/15/2020 8:04 AM CELLOPHANE CASTING MACHINE REPAIRER) COVID-19 PCR Not detected Not detected 11/15/2020 1:42 PM CELLOPHANE CASTING MACHINE REPAIRER [facility] Microbiology SPECIMEN FROM NASOPHARYNGEAL STRUCTURE / Unknown Collection / Unknown 11/15/2020 8:04 AM CELLOPHANE CASTING MACHINE REPAIRER 11/15/2020 8:12 AM CELLOPHANE CASTING MACHINE REPAIRER Narrative [facility] - 11/15/2020 1:42 PM CELLOPHANE CASTING MACHINE REPAIRER This nucleic acid amplification assay performance was validated by [facility]. This test has been authorized by the Food and Drug administration (FDA)under an Emergency Use Authorization (EUA). This test has been validated in accordance with the FDA's guidance document Policy for Diagnostic Testing in Laboratories Certified to perform High Complexity Testing under CLIA prior to Emergency Use Authorization for Coronavirus Disease-2019 during the Public Health Emergency issued on January 17, 2020. FDA independent review of this validation is pending. This test is only authorized for the duration of time the declaration that circumstances exist justifying the authorization of emergency use of in vitro diagnostic tests for detection of SARS-CoV-2 virus and/or diagnosis of COVID-19 infection under section 564(b)(1) of the Act, 21 U.S.C 360bbb-3 (b)(1), unless the authorization is terminated or revoked sooner. Fact Sheets for this EUA assay are available upon request. Shane Bull MD LAB - MICROBIOLOGY O RDERABLES [facility] [address] [place] [address], [facility] [phone] * US PELVIS LIMITED (02/04/2020 10:20 AM CDT) Anatomical Region Laterality Modality Pelvis Ultrasound 02/04/2020 11:2 0 AM CDT Narrative 02/04/2020 11:36 AM CDT PELVIC ULTRASOUND HISTORY: Palpable right groin nodule and history of endometrial carcinoma. Comparison is made to CT chest, abdomen and pelvis 02/07/2019. There are multiple hypoechoic nodules in the right inguinal region, the largest of which measures 2.1 cm in greatest dimensions, suggesting enlarged lymph nodes. No evidence of abnormal adenopathy in this area is seen on prior CT scan. DIAGNOSIS: Findings suggestive of adenopathy corresponding to the patient's palpable abnormality. Follow-up contrast CT scan is recommended for further characterization. Edited by Kira Verduzco on 02/04/2020 11:24 AM *Reading Radiologist: Kwan Mesa MD on 02/04/2020 at 11:36 AM Procedure Note Kwan Mesa MD - 02/04/2020 PELVIC ULTRASOUND HISTORY: Palpable right groin nodule and history of endometrial carcinoma. Comparison is made to CT chest, abdomen and pelvis 02/07/2019. There are multiple hypoechoic nodules in the right inguinal region, the largest of which measures 2.1 cm in greatest dimensions, suggesting enlarged lymph nodes. No evidence of abnormal adenopathy in this area is seen on prior CT scan. DIAGNOSIS: Findings suggestive of adenopathy corresponding to the patient's palpable abnormality. Follow-up contrast CT scan is recommended for further characterization. Edited by Kira Verduzco on 02/04/2020 11:24 AM *Reading Radiologist: Kwan Mesa MD on 02/04/2020 at 11:36 AM Shane Bull MD US ORDERABLES * CULTURE YEAST (01/26/2020 3:42 PM CDT) Pathologist [facility] Culture Yeast with ID [facility] Comment: CULTURE, YEAST, W/IDENTIFICATION Micro Number: [id number] Test Status: Final Specimen Source: VAGINAL Specimen Quality: Adequate Result: No fungal growth at 2 Weeks Test Performed at: [employer] [phone] KIRBY FRANKLIN MD Microbiology VAGINAL BIOPSY SPECIMEN / Unknown 01/26/2020 3:42 PM CDT 01/27/2020 2:19 AM CDT Shane Bull MD LAB - MICROBIOLOGY O RDERABLES [address] [address] * IMAGING RADIOLOGY XRAY RESULTS ORDER (12/04/2019 3:31 PM CELLOPHANE CASTING MACHINE REPAIRER) Anatomical Region Laterality Modality Other Narrative 12/04/2019 3:31 PM CELLOPHANE CASTING MACHINE REPAIRER Ordered by an unspecified provider. Scanned Document IMAGING * (ABNORMAL) LIPID PROFILE (11/17/2019 8:32 AM CELLOPHANE CASTING MACHINE REPAIRER) Only the most recent of2 resultswithin the time period is included. Cholesterol 202(H) 100 - 199 mg/dL [facility] INSURANCE BILL Triglycerides 169(H) 0 - 149 mg/dL [facility] INSURANCE BILL HDL Cholesterol 71 >39 mg/dL [facility] INSURANCE BILL VLDL Calculated 34 5 - 40 mg/dL [facility] INSURANCE BILL LDL Calculated 97 0 - 99 mg/dL [facility] INSURANCE BILL Comment NOT NEEDED [facility] INSURANCE BILL Comment: FASTING Ancillary determined the test is not needed. 11/17/2019 8:32 AM CELLOPHANE CASTING MACHINE REPAIRER 11/17/2019 Narrative Resulting Agency Comment Lab Testing performed at: [facility] [place] [address] [facility] [phone] Jose Chandler SPLUNK ARCHITECT-SCIENTIFIC RECRUITER LAB - PATIENT SERVICES MANAGER RY ORDERABLES [facility] INSURANCE BILL [address] [place] [address] * MAMMOGRAM (08/25/2019) Anatomical Region Laterality Modality Other Historical Provider SCANNING ONLY * [place] CENTRAL VENOUS CATH CHECK (02/11/2019 1:45 PM CDT) Anatomical Region Laterality Modality Radio Fluoroscop y 02/11/2019 2:30 PM CDT Impressions 02/11/2019 2:45 PM CDT Unremarkable study. Edited by Milagros Carlin on 02/11/2019 2:35 PM Reading Radiologist: Morales Mccauley MD on 02/11/2019 at 2:45 PM Narrative 02/11/2019 2:45 PM CDT CATHETER CHECK. HISTORY: Swelling postinjection for CAT scan. Under fluoroscopic guidance, contrast material was injected in the patient's access port which appears in normal position. No extravasation was seen. Normal flow from the tip of the catheter was demonstrated. Procedure Note Morales Mccauley MD - 02/11/2019 CATHETER CHECK. HISTORY: Swelling postinjection for CAT scan. Under fluoroscopic guidance, contrast material was injected in the patient's access port which appears in normal position. No extravasation was seen. Normal flow from the tip of the catheter was demonstrated. IMPRESSION Unremarkable study. Edited by Milagros Carlin on 02/11/2019 2:35 PM Reading Radiologist: Morales Mccauley MD on 02/11/2019 at 2:45 PM Shane Bull MD FLUOROSCOPY ORDERABL ES * THERAPY REPORT (06/06/2018 4:50 PM CDT) Narrative 06/06/2018 4:50 PM CDT Ordered by an unspecified provider. Scanned Document SCANNING ONLY * HEPATITIS C ANTIBODY (04/18/2018 10:29 AM CDT) Hepatitis C Antibody <0.1 0.0 - 0.9 s/co ratio [facility] INSURANCE BILL Comment: Negative: < 0.8 Indeterminate: 0.8 - 0.9 Positive: > 0.9 . The CDC recommends that a positive HCV antibody result be followed up with a HCV Nucleic Acid Amplification test (826678). FASTING Blood BLOOD SPECIMEN / Unknown 04/18/2018 10:29 AM CDT 04/18/2018 Narrative Resulting Agency Comment [facility] [address] [facility] [phone] Jose Chandler APRN-KAJAL LAB - PATIENT SERVICES MANAGER RY ORDERABLES Performing Organization Address City/[facility] Co de Phone Number [facility] INSURANCE BILL [address] [place] [address] * LAB HISTORICAL RESULTS-ONBASE (12/14/2017) Only the most recent of10 resultswithin the time period is included. 12/14/2017 Historical Provider LAB - CHEMISTRY O LAKHWINDER Performing Organization Address City/[facility]/ZIP Co de Phone Number [address] * HELICOBACTER PYLORI UREASE (STL) (12/06/2017 1:16 PM CELLOPHANE CASTING MACHINE REPAIRER) Helicobacter pylori Urease Initial Negative Negative 12/07/2017 4:11 PM CELLOPHANE CASTING MACHINE REPAIRER [facility] Helicobacter pylori Urease Final Negative Negative 12/07/2017 4:11 PM CELLOPHANE CASTING MACHINE REPAIRER [facility] Microbiology GASTRIC CONTENTS SPECIMEN / Unknown 12/06/2017 1:16 PM CELLOPHANE CASTING MACHINE REPAIRER 12/06/2017 2:56 PM CELLOPHANE CASTING MACHINE REPAIRER Oscar Dodson MD LAB - MICROBIOLOGY O RDUNIQUE Performing Organization Address City/[facility]/ZIP Co de Phone Number [facility] [address] [place] [address] * EGD (12/06/2017 1:01 PM CELLOPHANE CASTING MACHINE REPAIRER) Report Endoscopy POC _ Patient Name: Laquita Rodriguez Procedure Date: 12/06/2017 1:01 PM Date of : 1955 Admit Type: Outpatient Age: 62 Gender: Female Attending MD: Oscar Dodson MD _ Procedure: Upper GI endoscopy Indications: Abnormal CT of the GI tract Providers: Oscar Dodson MD (Doctor), Rosibel Harmon RN, Ana Guillermo, Sr. Manager, Meera Ott, Sr. Manager Referring MD: Shane Bull (Referring MD) Medicines: Monitored Anesthesia Care Complications: No immediate complications. _ Procedure: Pre-Anesthesia Assessment: - ASA Grade Assessment: II - A patient with mild systemic disease. - Airway Examination: Mallampati Class I (tonsillar pillars visualized). After obtaining informed consent, the endoscope was passed under direct vision. Throughout the procedure, the patient's blood pressure, pulse, and oxygen saturations were monitored continuously. The Endoscope was introduced through the mouth, and advanced to the second part of duodenum. The upper GI endoscopy was accomplished without difficulty. The patient tolerated the procedure well. Impression: - Normal esophagus. - Non-severe reflux esophagitis. Biopsied. - Gastritis. Biopsied. - Normal duodenal bulb and 2nd part of the duodenum. - Hiatus hernia. Findings: The examined esophagus was normal. Non-severe esophagitis with no bleeding was found in the lower third of the esophagus. Biopsies were taken with a cold forceps for histology. Localized minimal inflammation characterized by erythema was found in the gastric antrum. Biopsies were taken with a cold forceps for Helicobacter pylori testing using CLOtest. Estimated blood loss: none. The duodenal bulb and 2nd part of the duodenum were normal. A hiatus hernia was present. _ Recommendation: - Await pathology results. - Use Prilosec (omeprazole) 20 mg PO daily. Procedure Code(s): --- Professional --- 50119, Esophagogastroduo denoscopy, flexible, transoral; with biopsy, single or multiple --- Technical --- 93753, Esophagogastroduo denoscopy, flexible, transoral; with biopsy, single or multiple Diagnosis Code(s): --- Professional --- K21.0, Gastro-esophageal reflux disease with esophagitis K29.70, Gastritis, unspecified, without bleeding K44.9, Diaphragmatic hernia without obstruction or gangrene R93.3, Abnormal findings on diagnostic imaging of other parts of digestive tract --- Technical --- K21.0, Gastro-esophageal reflux disease with esophagitis K29.70, Gastritis, unspecified, without bleeding K44.9, Diaphragmatic hernia without obstruction or gangrene R93.3, Abnormal findings on diagnostic imaging of other parts of digestive tract CPT copyright 2015 [employer]. All rights reserved. The codes documented in this report are preliminary and upon vessel builder review may be revised to meet current compliance requirements. Oscar Dodson MD 12/06/2017 1:21:56 PM This report has been signed electronically. Number of Addenda: 0 Note Initiated On: 12/06/2017 1:01 PM [facility] 12/06/2017 1:01 PM CELLOPHANE CASTING MACHINE REPAIRER Oscar Dodson MD GI PROCEDURE ORDERAB LES [facility] * PATHOLOGY/GENETICS HISTORICAL-ONBASE (11/29/2017) 11/29/2017 Historical Provider LAB - CHEMISTRY O RDERABLES Performing Organization Address City/[facility]/ZIP Co de Phone Number [place] [phone] [address] * (ABNORMAL) DIFFERENTIAL MANUAL (03/02/2017 11:56 AM CDT) WBC Auto 2.0 x10E9/L 03/02/2017 1:08 PM CDT [facility] WBC Corrected 4.4 - 10.7 x10E9/L 03/02/2017 1:08 PM CDT [facility] nRBC /100 WBC 03/02/2017 1:08 PM CDT [facility] Neutrophil % Manual 19(L) 44 - 73 % 03/02/2017 1:08 PM CDT [facility] Lymphocytes % Manual 61(H) 20 - 43 % 03/02/2017 1:08 PM CDT [facility] Monocytes % Manual 15(H) 5 - 13 % 03/02/2017 1:08 PM CDT [facility] Eosinophils % Manual 5 0 - 6 % 03/02/2017 1:08 PM CDT [facility] Cells Counted 100 # cells 03/02/2017 1:08 PM CDT [facility] RBC Morphology Normal 03/02/2017 1:08 PM CDT [facility] WBC Morph Normal 03/02/2017 1:08 PM CDT [facility] Platelet Estimation Normal 03/02/2017 1:08 PM CDT [facility] Blood BLOOD SPECIMEN / Unknown Venipuncture / Unknown 03/02/2017 11:56 AM CDT 03/02/2017 12:01 PM CDT Shane Bull MD LAB - HEMATOLOGY ORD ERABLES [facility] [address] [place] [id number] * IR INSERT DEBBIE CVAD W SQ PT 5+YRS (12/12/2016 2:59 PM CELLOPHANE CASTING MACHINE REPAIRER) Anatomical Region Laterality Modality X-Ray Angiograph y Narrative 12/13/2016 3:24 PM Reyes Montemayor MD 12/13/2016 3:24 PM Laquita Rodriguez 1955 [id number] Interventional Nephrology Procedure Date: 12/12/2016 Attending Surgeon and performing the procedure: Reyes Ulloa MD Dive Superintendent: Laila Martínez CRT Medical indication for the procedure: Laquita is a 61-year-old woman with a recent diagnosis of endometrial cancer status post total abdominal hysterectomy with bilateral oophorectomy. The patient has been referred for the placement of a right internal jugular vein Port-A-Cath for the initiation of chemotherapy. Indications for the procedure: 1. Endometrial adenocarcinoma [C54.1] Procedures Performed: 1. ULTRASOUND GUIDANCE FOR VASCULAR ACCESS WITH PERMANENT RECORDING; 13120 2. FLUOROSCOPIC GUIDANCE FOR CVC PROCEDURE; 48963 3. INSERT. OF TUNNELED CENTRALLY INSERTED CVAD; WITH SUBQ PORT, 5 YEARS OR OLDER; 05585 Findings: 1. The right internal jugular vein was imaged under ultrasound with color Doppler and confirmed patent and compressible. 2. The right internal jugular vein was accessed with a 21 gauge micropuncture needle using ultrasound guidance for vascular access. The needle tip was observed entering the lumen of the vein in real-time and permanent recording was obtained. 3. The 21 cm tip to port Port-A-Cath catheter was advanced through the right internal jugular vein introducer sheath into the right internal jugular vein and the tip located in the right atrium just below the superior vena cava and right atrial junction. No kinks were observed along entire trajectory of the catheter. Description of the procedure: After informed consent was obtained Laquita Rodriguez was taken to the Angiography Suite and placed on the fluoroscopy table in the supine position. Time out was performed prior to starting procedure. The chest and neck were prepared with chlorhexidine and draped in the appropriate sterile fashion. The right internal jugular vein was accessed with a 21 gauge micropuncture needle using ultrasound guidance for vascular access. Permanent recording was obtained. A microfilament guidewire was advanced into the vein. The needle was removed and a 0.5 cm dermotomy incision was made with a number 11 blade. Blunt dissection was used to dissect down to the venotomy. Five Bhutanese introducer sheath was advanced over the wire and into the vein by modified Seldinger technique. The port pocket was chosen in the subclavicular space along the right midclavicular line. The pocket site and tunnel tract were infiltrated with 1% lidocaine. A 2 cm horizontal incision was made and blunt dissection was used to create a pocket of the appropriate size. The assembled small profile Clear Michael Port-A-Cath catheter was brought to the venotomy site with the aid of a metal tunneling device. The port was buried into the pocket. The microfilament guidewire was removed and a scaled 0.018 inch guidewire was advanced the tip located in the right atrium and was used to estimate the length of the catheter from the tip to the port at 21 cm. The inner dilator and wire were removed a J-tip guidewire was advanced through the introducer sheath. The catheter length was adjusted to 23 cm from the tip to the port. The 5 Bhutanese introducer sheath was removed and an 8 Bhutanese peel-away introducer sheath dilator combo was advanced over the wire and into the vein by modified Seldinger technique under fluoroscopic guidance. The inner dilator and wire were removed and the catheter was advanced through the peel-away introducer sheath into the vein and the tip located in the right atrium. No kinks were observed along entire trajectory of the catheter. The port was then accessed with a 20 gauge Frank needle. Brisk blood return was confirmed. The port was then flushed with 20 mL normal saline and locked with 5 mm of 100 units/milliliter of heparin lock solution. The subcutaneous tissue was closed with 2-0 Vicryl. The skin was closed with Dermabond. Dermabond was also applied to the dermotomy at the base of the neck. Steri-Strips were applied to each of the incisions. The patient tolerated the procedure well with 1% lidocaine for local anesthesia. Fluoroscopy time: 0.2 min. Estimated patient exposure: 0.04 mGYm2. COMPLICATIONS: No. RECOMMENDATIONS: 1. Follow up in 10-14 days. 2. May access Port-A-Cath with the in the next 5 days. 3. Keep incisions dry for the next 14 days. Reyes Ulloa MD 12/13/2016 3:18 PM [phone] Shane Bull MD Shane Bull MD IR ORDERABLES Care Teams Pressure Controller Relationship Specialty Start Date End Date Jose Chandler, SPLUNK ARCHITECT-SCIENTIFIC RECRUITER [address] [place] [phone] PCP - General Internal Medicine 10/31/23
--- OUTSIDE RECORDS SUMMARY | 2024-12-25 14:12 | XMS_ITS | Encounter Summary ---
Author Organization [facility] Address [address] [place] [address] Care Team Providers Care Behavior Clinician Name Role Phone Jose Chandler Primary Care Provide r A, Unknown Practice Primary Care Provider [phone] Jose Chandler APRN-KAJAL Primary Care Provide r Reason for Visit * Reason Onset Date Comments Results 04/27/2021 Encounter Details Date Type Department Care Team (Late Contact Info) Description 04/27/2021 Telephone [facility] [address] [place], [place] [id number] Shane Bull MD [address] [facility] [address] [place] [address] Results Social History Tobacco Use Types Packs/Day Years [...] Telephone Encounter - Mona Gunderson RN - 04/27/2021 1:51 PM CDT Sumi WOODS spoke with patient discussed indeterminate findings and decreased size in groin lymph node. Verified dose she is taking of Megace She states she is taking 40mg once a day Will increase back to 80mg BID New RX sent Will need repeat PET in 3 months * Telephone Encounter - Emily Navas - 04/27/2021 11:31 AM CDT Patient called Mirna back Call back # [phone] * Telephone Encounter - Mona Gunderson RN - 04/27/2021 10:40 AM CDT Sumi WOODS called and LM * Telephone Encounter - Tammy Ndiaye - 04/27/2021 8:42 AM CDT Pt called states she wants to know her results from her test CB# [phone] documented in this encounter Plan of Treatment Upcoming Encounters Date Type Department Care Team (Late st Contact Info) Description 12/29/2024 11:30 AM SITE DAMAGE PREVENTION TECHNICIAN Office Visit [facility] - PLATE PUT IN WORKER [address] [place] [address] Shane Bull MD [address] [facility] [facility] [address] [place] [address] 01/19/2025 11:00 AM SITE DAMAGE PREVENTION TECHNICIAN Office Visit [facility] - PLATE PUT IN WORKER [address] [place] [address] Shane Bull MD [address] [place] [address] documented as of this encounter Visit Diagnoses Not on filedocumented in this encounter Care Teams Behavior Clinician Relationship Specialty Start Date End Date Jose Chandler APRN-KAJAL PCP - General 04/05/18 10/08/22 A, Unknown Practice [address] [place] [phone] PCP - General 10/05/23 10/30/23 Jose Chandler APRN-KAJAL [address] [place] [phone] PCP - General Internal Medicine 10/31/23 documented as of this encounter
[2024-12-25 14:33] LABS: Basophils Absolute Auto 0.1 K/mm3 (0.0-0.1); Basophils Percent Auto 0.3 % (0.2-1.2); Eosinophils Percent Auto 0.2 % (0-4.4); Hematocrit 28.9 % (37.0-47.0); Hemoglobin 7.8 g/dL (12.0-15.0); Immature Granulocyte Absolute 0.15 K/mm3 (0.00-0.031); Immature Granulocyte Percent A 0.8 % (0-0.5); Lymphocytes Absolute Auto 0.79 K/mm3 (0.9-3.2); Lymphocytes Percent Auto 4.4 % (18.3-44.2); Mean Corpuscular Hemoglobin 19.1 pg (26-34); Mean Corpuscular Volume 70.7 fl (80-100); Mean Platelet Volume 8.3 fl (7.4-10.4); Monocytes Absolute Auto 0.9 K/mm3 (0.1-0.6); Neutrophils Percent Auto 89.3 % (45.5-73.1); Platelet Count Result 660 k/mm3 (150-375); Red Blood Count 4.09 M/mm3 (4.2-5.4); Red Cell Distribution Width 18.6 % (11.5-14.5); White Blood Count 17.9 K/mm3 (4.5-10.0)
[2024-12-25 14:38] LABS: Platelet Estimate Increased (Adequate)
[2024-12-25 14:41] LABS: Anisocytosis 2+; Schistocytes None Seen
[2024-12-25 14:42] LABS: Hypochromasia 1+; Ovalocytes 1+; Stomatocytes 1+
[2024-12-25 16:29] LABS: Alanine Aminotransferase 12 U/L (6-35); Albumin Level 3.4 g/dL (3.5-5.1); Alkaline Phosphatase 135 U/L (38-126); Anion Gap 11 mmol/L (4-12); Aspartate Amino Transferase 26 U/L (14-36); Bilirubin,Total 0.5 mg/dL (0.2-1.3); Blood Urea Nitrogen 15 mg/dL (7-17); Calcium 10.1 mg/dL (8.4-10.2); Carbon Dioxide 25 mmol/L (22-30); Chloride 97 mmol/L (98-107); Estimated Glomerular Filt Rate > 60; Glucose 115 mg/dL (65-110); Magnesium 1.8 mg/dL (1.6-2.3); Potassium 4.4 mmol/L (3.4-5.0); Sodium 133 mmol/L (137-145)
[2024-12-25 23:56] LABS: Free T4 Free Thyroxine Reflex 1.88 ng/dL (0.78-2.19)
[2024-12-26 01:22] LABS: Total Triiodothyronine (T3) 1.59 NG/ML (0.97-1.69)
[2024-12-27 02:22] LABS: CA-125 1662 U/mL (<35)
== END 2024-12-25 14:08 | disposition home or self-care (01) ==
PROVIDERS: Visit Provider Internal Medicine
DX: C54.1 Malignant neoplasm of endometrium (principal)
CPT/HCPCS: 36415; 80053; 82533; 83735; 84439; 84443; 84480; 85025; 86304